=== PATIENT | female | born 1955 | race Caucasian/White ===

== ENCOUNTER → 2018-11-27 | Outpatient (CLI) | payer OTHER ==
--- NOTE | 2018-11-28 11:05 | MM ---
Reason for exam: screening (asymptomatic). Last mammogram was performed 1 year and 6 months ago. History: Patient is postmenopausal. Benign excisional biopsy of the right breast, 2018. Physical Findings: A clinical breast exam by your physician is recommended on an annual basis and results should be correlated with mammographic findings. MG 3D Screening Mammo W/Cad Bilateral CC and MLO view(s) were taken. Prior study comparison: May 26, 2017, mammogram, performed at [facility]. March 30, 2017, mammogram, performed at [facility]. June 12, 2014, mammogram, performed at [facility]. Progressive increasing size of the previously biopsied central right breast mass now with spiculated appearance measuring 4.3 x 3.2cm. Excision recommended even if repeat biopsy is benign. ASSESSMENT: Incomplete: need additional imaging evaluation, BI-RAD 0 RECOMMENDATION: Ultrasound of the right breast. [facility] will attempt to contact patient to return for ultrasound.
== END | disposition home or self-care (01) ==
LOC: RADMAMWWP 12:58
PROVIDERS: ATTEND Family Medicine
DX: Z12.31 Encounter for screening mammogram for malignant neoplasm of breast (principal)
CPT/HCPCS: 77063; 77067

== ENCOUNTER → 2018-12-06 | Outpatient (CLI) | payer OTHER ==
--- NOTE | 2018-12-07 08:47 | USB ---
Reason for exam: additional evaluation requested from abnormal screening. History: Patient is postmenopausal. Benign excisional biopsy of the right breast, 2018. Physical Findings: Nurse Summary: Patient complains of right breast lump increased insize x 1.5 years, 4cm fixated, firm, irregular lump right breast 12 o'clock (nurse mj). US Breast Workup RT Right complete breast ultrasound includes all four quadrants, the retroareolar region and axilla. Finding demonstrates a 4.8 x 3.5 x 5.1cm irregular, hypoechoic, vascular lesion at 12 o'clock for which a biopsy is recommended, a 2.6 x 2.1 x 1.0cm irregular, hypoechoic, vascular lesion at 5 o'clock for which a biopsy is recommended, a 2.7 x 2.0 x 0.7cm irregular, hypoechoic, vascular lesion at 8 o'clock for which a biopsy is recommended, a hypoechoic lesion at 10 o'clock for which a biopsy is recommended, a 1.2 x 1.0 x 1.4cm hypoechoic, question node at 10 o'clock, a 1.3 x 1.2 x 1.5cm hypoechoic, questionable node at 10 o'clock,a 3.3 x 2.6 x 1.7cm irregular, hypoechoic lesion at 11 o'clock and nodes at 11 o'clock questionable adjacent to 10 o'clock. These results were verbally communicated with the patient and result sheet given to the patient on 12/06/18. ASSESSMENT: Highly suggestive of malignancy, BI-RAD 5 RECOMMENDATION: Surgical consultation and ultrasound core biopsy of the right breast. (Four suspicious sites and nodes) Called Dr. Lopez with mammographic findings and has scheduled an appointment for the patient for 12/21/18 at 8:[address] Shirley. Biopsy scheduled for 12/21/18 at 10:20. PRELIMINARY REPORT CALLED AND FAXED TO DR. SHIRLEY ON 12/07/18.
== END | disposition home or self-care (01) ==
LOC: RADUSWWP 10:10
PROVIDERS: ATTEND Family Medicine
DX: R92.8 Other abnormal and inconclusive findings on diagnostic imaging of breast (principal)

== ENCOUNTER → 2018-12-21 | Outpatient (CLI) | payer OTHER ==
[2018-12-21 08:17] VITALS: BP 146/84; PULSE 76; RESP 18; TEMP 98.7; BMI 32.9
--- NOTE | 2018-12-21 08:49 | P.GSHP ---
History of Present Illness H&P Date: 12/21/18 Chief Complaint: lump right breast Leslye is a 63-year-old white female who is being seen for a nodule in her right breast. She states that she noted a nodule approximately 2 years ago in the right breast at which time a biopsy was performed. The biopsy was done via a core biopsy and it was benign. [place] [address]. This revealed a 4.3 x 3.2 cm spiculated mass in the right breast. She subsequently underwent an ultrasound which revealed multiple lesions in the right breast. The first is a 4.8 x 3.5 cm irregular lesion at 12:00 for which biopsy is recommended 2. 2.6 x 1 cm irregular lesion at 5:00 for which biopsy is recommended 3. 2.7 x 2 cm irregular lesion at 8:00 which biopsy is recommended and 4. The lesion at 10:00 for which biopsy is recommended. Additionally there noted to be questionable nodes. The patient states that the area she noted 2 years ago has increased slightly in size. The patient has no pain in her breasts. She has not noted any swelling under her arm. She has no nipple discharge or skin changes. Family history: 1. paternal grandmother: ? breast cancer 2. paternal aunt: smokers lung cancer 3. maternal aunt: brain cancer Hormonal history: Menarche: 10 first at 28, breast fed: no menopasue: 50 BCP: 5 years hormones: none Past surgical history: 1. gallbladder 2. D&C Medical history: HTN depression arthritis Social History: smoke: none Alcohol: Negative Drugs: Negative - Constitutional Constitutional: Reports sweats - EENT Eyes: denies blurred vision, denies pain Ears: deny: decreased hearing, tinnitus Ears, nose, mouth and throat: Denies headache, Denies sore throat - Breasts Breasts: bilateral: as per HPI - Cardiovascular Cardiovascular: Reports high blood pressure - Respiratory Respiratory: Denies cough, Denies 7 - Gastrointestinal Gastrointestinal: Denies abdominal pain, Denies diarrhea, Denies nausea, Denies vomiting - Genitourinary (Female) Genitourinary: Denies dysuria, Denies hematuria - Menstruation Menstruation: Reports postmenopausal - Musculoskeletal Comment: Arthritis in knees - Integumentary Comment: Intermittent folliculitis - Neurological Neurological: Denies numbness, Denies weakness - Psychiatric Psychiatric: Reports depression - Endocrine Endocrine: Reports fatigue, Denies weight change - Hematologic/Lymphatic Comment: none - Allergic/Immunologic Allergic/Immunologic: Reports as per HPI Past Medical History Past Medical History: No Reported History History of Any Multi-Drug Resistant Organisms: None Reported Past Surgical History: Cholecystectomy Additional Past Surgical History / Comment(s): D&C 1983 Past Anesthesia/Blood Transfusion Reactions: Previous Problems w/ Anesthesia, Postoperative Nausea & Vomiting (PONV) Past Psychological History: Depression Smoking Status: Never smoker Past Alcohol Use History: Rare Past Drug Use History: None Reported Medications and Allergies Home Medications Medication Instructions Recorded Confirmed Type Cyclobenzaprine [Flexeril] 5 mg PO TID PRN 12/06/18 12/21/18 History Lisinopril 20 mg PO DAILY 12/06/18 12/21/18 History Sertraline [Zoloft] 50 mg PO DAILY 12/06/18 12/21/18 History Omeprazole [PriLOSEC] 40 mg PO 12/21/18 History Allergies Allergy/AdvReac Type Severity Reaction Status Date / Time Latex, Natural Rubber Allergy Rash/Hives Verified 12/21/18 08:18 amlodipine AdvReac Swelling Verified 12/21/18 08:18 ciprofloxacin [From Cipro] AdvReac Swelling Verified 12/21/18 08:18 citalopram AdvReac Hallucinati Verified 12/21/18 08:18 ons doxycycline AdvReac Vomiting Verified 12/21/18 08:18 Surgical - Exam Vital Signs Temp Pulse Resp BP Pulse Ox 98.7 F 76 18 146/84 95 12/21/18 08:12 12/21/18 08:12 12/21/18 08:12 12/21/18 08:12 12/21/18 08:12 BMI 32.9 - General obese - Eyes normal ocular movement - ENT normal pinna, no hearing loss - Neck no masses, trachea midline - Respiratory normal expansion, normal respiratory effort, clear to auscultation - Cardiovascular Rhythm: regular Heart Sounds: normal: S1, S2 - Abdomen Abdomen: soft, non tender, no guarding, no rigid, no rebound - Integumentary folliculitis on arm - Neurologic no disoriented, no combative - Musculoskeletal normal gait, normal posture - Psychiatric oriented to time, oriented to person, oriented to place, speech is normal, memory intact breast exam: Right breast slightly smaller than left breast Right breast exam: Multiple positional exam dominant mass at 12:00 approximately 5 cm in size Right axilla: Positive axillary adenopathy Left breast: Multiple positional exam no dominant masses or nodules of concern Left axilla: No adenopathy of concern Breasts size 44 DDD Patient has "ruts" in her shoulders from heavy breast Patient complaining of back pain Results mammogram and ultrasound results reviewed Assessment and Plan Assessment: Impression: 1. abnormal mammogram highly suspicious for breast cancer 2. abnormal ultrasound highly suspicious for breast cancer 3. breast mass 4. axillary adenopathy 5. HTN 6. depression Plan; 1. Core biopsy areas of concern in the right breast 2. Follow-up with Dr. Butler next week 3. Medical management of medical conditions Cc: Dr. Lopez
== END ==
LOC: WWCWWP 07:56
PROVIDERS: ATTEND Surgery
DX: Z53.9 Procedure and treatment not carried out, unspecified reason (principal)

== ENCOUNTER → 2018-12-21 | Day surgery (SDC) | payer OTHER ==
[2018-12-21 10:35] VITALS: BP 143/86; PULSE 69; RESP 12
[2018-12-21 13:10] VITALS: TEMP 98.7
--- NOTE | 2018-12-21 14:19 | USB ---
EXAMINATION TYPE: US biopsy breast add'l VAD RT, US biopsy breast VAD RT, US breast needle core addl RT, MG diagnostic mammo RT wo CAD DATE OF EXAM: 12/21/2018 CLINICAL HISTORY: R92.8 abnl mammogram. TECHNIQUE: Ultrasound guided core biopsy of right breast. COMPARISON: Ultrasound dated 12/21/2018 FINDINGS: The procedure of ultrasound guided core biopsy was explained to the patient. Benefits, alternatives, and risks were discussed. An informed consent was then obtained. A procedural timeout was performed. 3 biopsies were performed of the index largest mass at the 12:00 position in zone BC, of the farthest away mass at the 5:00 position, and of a highly suspicious axillary node with Hydromark left in place. Right A: The patient was placed in supine positioning for imaging and for the procedure. The overlying skin was prepped and draped in usual sterile fashion. 10 cc of lidocaine 1% lidocaine was used as anesthetic into the skin and subcutaneous tissue up to be highly suspicious 5.1 cm irregular mass at the 12:00 position on the right. Under ultrasound guidance, a 12-gauge vacuum assisted biopsy gun device was used to obtain 4 core samples. Following this, a ribbon-shaped biopsy marker was left in the mass. Site B: The patient was placed in supine positioning for imaging and for the procedure. The overlying skin was prepped and draped in usual sterile fashion. 10 cc of lidocaine 1% lidocaine was used as anesthetic into the skin and subcutaneous tissue up to the 2.6 cm suspicious irregular mass at the 5:00 position on the right. Under ultrasound guidance, a 12-gauge vacuum assisted biopsy gun device was used to obtain 5 core samples. Following this, a coil-shaped biopsy marker was left in the mass. Site C: The patient was placed in supine positioning for imaging and for the procedure. The overlying skin was prepped and draped in usual sterile fashion. 10 cc of lidocaine 1% lidocaine was the used as anesthetic into the skin and subcutaneous tissue up to the suspicious right axillary adenopathy. Under ultrasound guidance, an 18-gauge Bard nonvacuum assisted device was used to obtain 3 core samples with the open trough technique. Hydromarker clip was placed in the lymph node. The patient tolerated the procedure well without any immediate complication. The patient was kept in the radiology department for short stay after the procedure and then discharged home in stable condition. Postprocedure mammogram demonstrates appropriate biopsy marker placement. IMPRESSION: Successful, uncomplicated ultrasound guided core biopsy of area of a highly suspicious 5.1 cm mass at the 12:00 position, a 2.6 cm irregular mass the furthest away from the index mass at the 5:00 position, and a highly suspicious abnormal right axillary lymph node with Hydromark placed, full pathology results to follow. Of note multiple additional right breast masses were appreciated as detailed on the prior ultrasound of 12/21/2018. Pathology Results: Malignant A. 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 B. RIGHT BREAST, FIVE O'CLOCK, SITE B, ULTRASOUND GUIDED CORE BIOPSY: Benign breast with fibrocystic changes including cysts and fibrosis. C. RIGHT AXILLA, CORE BIOPSY: Metastatic carcinoma consistent with ductal breast primary extensively replacing lymph node tissue. See Comment. Recommendation Surgical consult of the right breast. Biopsy at the 8 o'clock mass could be performed to exclude multicentric disease or MRI if breast conservation is pursued. 8:00 2.7cm mass. 10:00 1.4cm mass. 11:00 3.3cm mass. MTDD
== END ==
LOC: RADUSWWP 09:55
PROVIDERS: ATTEND Surgery
DX: C50.811 Malignant neoplasm of overlapping sites of right female breast (principal); R59.0 Localized enlarged lymph nodes; N60.31 Fibrosclerosis of right breast; Z88.8 Allergy status to other drugs, medicaments and biological substances; Z88.1 Allergy status to other antibiotic agents; Z91.040 Latex allergy status
CPT/HCPCS: 88305; 88342; 88341; 77065; 38505; 19083; 19084; A4648; J2001

== ENCOUNTER → 2018-12-29 | Outpatient (CLI) | payer OTHER ==
[2018-12-29 11:05] VITALS: BP 126/83; PULSE 81; RESP 16; TEMP 98.7; BMI 32.9
--- NOTE | 2018-12-29 12:07 | P.GSHP ---
History of Present Illness H&P Date: 12/29/18 Chief Complaint: breast cancer History of Present Illness H&P Date: 12/21/18 Chief Complaint: lump right breast Leslye is a 63-year-old white female who is being seen for a nodule in her right breast. She states that she noted a nodule approximately 2 years ago in the right breast at which time a biopsy was performed. The biopsy was done via a core biopsy and it was benign. [place] [address]. This revealed a 4.3 x 3.2 cm spiculated mass in the right breast. She subsequently underwent an ultrasound which revealed multiple lesions in the right breast. The first is a 4.8 x 3.5 cm irregular lesion at 12:00 for which biopsy is recommended 2. 2.6 x 1 cm irregular lesion at 5:00 for which biopsy is recommended 3. 2.7 x 2 cm irregular lesion at 8:00 which biopsy is recommended and 4. The lesion at 10:00 for which biopsy is recommended. Additionally there noted to be questionable nodes. The patient states that the area she noted 2 years ago has increased slightly in size. The patient has no pain in her breasts. She has not noted any swelling under her arm. She has no nipple discharge or skin changes. Biopsy the following areas revealed. the patient breast size is 44DDD. 1. 12:00 ultrasound-guided core biopsy invasive high-grade ductal carcinoma; grade 3, ER/IN positive, HER-2 negative. Being sent for additional studies as it was felt that this was discordant. 2. Right breast 5:00 ultrasound-guided core biopsy benign breast with fibrocystic changes 3. 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 The 8 o'clock position was not biopsied Family history: 1. paternal grandmother: ? breast cancer 2. paternal aunt: smokers lung cancer 3. maternal aunt: brain cancer Hormonal history: Menarche: 10 first at 28, breast fed: no menopasue: 50 BCP: 5 years hormones: none Past surgical history: 1. gallbladder 2. D&C Medical history: HTN depression arthritis Social History: smoke: none Alcohol: Negative Drugs: Negative - Constitutional Constitutional: Reports sweats - EENT Eyes: denies blurred vision, denies pain Ears: deny: decreased hearing, tinnitus Ears, nose, mouth and throat: Denies headache, Denies sore throat - Breasts Breasts: bilateral: as per HPI - Cardiovascular Cardiovascular: Reports high blood pressure - Respiratory Respiratory: Denies cough, Denies 7 - Gastrointestinal Gastrointestinal: Denies abdominal pain, Denies diarrhea, Denies nausea, Denies vomiting - Genitourinary (Female) Genitourinary: Denies dysuria, Denies hematuria - Menstruation Menstruation: Reports postmenopausal - Musculoskeletal Comment: Arthritis in knees - Integumentary Comment: Intermittent folliculitis - Neurological Neurological: Denies numbness, Denies weakness - Psychiatric Psychiatric: Reports depression - Endocrine Endocrine: Reports fatigue, Denies weight change - Hematologic/Lymphatic Comment: none - Allergic/Immunologic Allergic/Immunologic: Reports as per HPI Past Medical History Past Medical History: No Reported History History of Any Multi-Drug Resistant Organisms: None Reported Past Surgical History: Cholecystectomy Additional Past Surgical History / Comment(s): D&C 1983 Past Anesthesia/Blood Transfusion Reactions: Previous Problems w/ Anesthesia, Postoperative Nausea & Vomiting (PONV) Past Psychological History: Depression Smoking Status: Never smoker Past Alcohol Use History: Rare Past Drug Use History: None Reported Medications and Allergies Home Medications Medication Instructions Recorded Confirmed Type Cyclobenzaprine [Flexeril] 5 mg PO TID PRN 12/06/18 12/21/18 History Lisinopril 20 mg PO DAILY 12/06/18 12/21/18 History Sertraline [Zoloft] 50 mg PO DAILY 12/06/18 12/21/18 History Omeprazole [PriLOSEC] 40 mg PO 12/21/18 History Allergies Allergy/AdvReac Type Severity Reaction Status Date / Time Latex, Natural Rubber Allergy Rash/Hives Verified 12/21/18 08:18 amlodipine AdvReac Swelling Verified 12/21/18 08:18 ciprofloxacin [From Cipro] AdvReac Swelling Verified 12/21/18 08:18 citalopram AdvReac Hallucinati Verified 12/21/18 08:18 ons doxycycline AdvReac Vomiting Verified 12/21/18 08:18 Surgical - Exam Vital Signs Temp Pulse Resp BP Pulse Ox 98.7 F 76 18 146/84 95 12/21/18 08:12 12/21/18 08:12 12/21/18 08:12 12/21/18 08:12 12/21/18 08:12 BMI 32.9 - General obese - Eyes normal ocular movement - ENT normal pinna, no hearing loss - Neck no masses, trachea midline - Respiratory normal expansion, normal respiratory effort, clear to auscultation - Cardiovascular Rhythm: regular Heart Sounds: normal: S1, S2 - Abdomen Abdomen: soft, non tender, no guarding, no rigid, no rebound - Integumentary folliculitis on arm - Neurologic no disoriented, no combative - Musculoskeletal normal gait, normal posture Past Medical History Past Medical History: No Reported History, Hypertension History of Any Multi-Drug Resistant Organisms: None Reported Past Surgical History: Cholecystectomy Additional Past Surgical History / Comment(s): D&C 1983 Past Anesthesia/Blood Transfusion Reactions: Previous Problems w/ Anesthesia, Po stoperative Nausea & Vomiting (PONV) Past Psychological History: Depression Smoking Status: Never smoker Past Alcohol Use History: Rare Past Drug Use History: None Reported Medications and Allergies Home Medications Medication Instructions Recorded Confirmed Type Cyclobenzaprine [Flexeril] 5 mg PO TID PRN 12/06/18 12/29/18 History Lisinopril 20 mg PO DAILY 12/06/18 12/29/18 History Sertraline [Zoloft] 50 mg PO DAILY 12/06/18 12/29/18 History Omeprazole [PriLOSEC] 40 mg PO Q12HR PRN 12/21/18 12/29/18 History Allergies Allergy/AdvReac Type Severity Reaction Status Date / Time Latex, Natural Rubber Allergy Rash/Hives Verified 12/29/18 10:52 amlodipine AdvReac Swelling Verified 12/29/18 10:52 ciprofloxacin [From Cipro] AdvReac Swelling Verified 12/29/18 10:52 citalopram AdvReac Hallucinati Verified 12/29/18 10:52 ons doxycycline AdvReac Vomiting Verified 12/29/18 10:52 Surgical - Exam Vital Signs Temp Pulse Resp BP Pulse Ox 98.7 F 81 16 126/83 96 12/29/18 10:49 12/29/18 10:49 12/29/18 10:49 12/29/18 10:49 12/29/18 10:49 BMI 32.9 - General obese - Eyes normal ocular movement - Neck trachea midline - Respiratory normal respiratory effort, clear to auscultation - Cardiovascular Rhythm: regular Heart Sounds: normal: S1, S2 - Integumentary Examination of the right breast reveals areas of ecchymosis at the site of the core biopsies No evidence of any infection - Neurologic no disoriented, no combative Results Mammogram and ultrasound reviewed Assessment and Plan Assessment: Impression: 1. T2 N1 M0 ER/IN positive HER-2/bijan negative grade 3, stage IIB 2. HTN 3. arthritis 4. depression We have discussed treatment options which would include mastectomy plus or minus reconstruction with axillary node dissection, whether the patient may have preoperative chemotherapy. If this is truly multi-centric disease we will most likely recommend a mastectomy. If biopsy of the area at 8:00 were benign then patient may consider a lumpectomy. The patient has had a biopsy of the suspicious area several years in the past which was benign and therefore it is of concern that even if these areas were to be benign on core biopsy revealed radiographically very suspicious at 5:00 and 8:00. Additionally the patient has very large breasted 44DDD and need to do some type of procedure on the contralateral breast to help with symmetry. After discussion with the patient with radiology we are going to proceed with an MRI of both breasts. MRI is suspicious for multicentric disease in the right patient will most likely opt for mastectomy. At this time she is not interested in reconstruction. We would then consider a reduction mammoplasty on the left side. Plan: 1. bilateral breast MRI 2. medical oncology consult/discuss genetic testing and patient is not interested this time 3. present at tumor board 4. follow within 2 weeks CC: Asya Christianson N.P.
== END ==
LOC: WWCWWP 10:48
PROVIDERS: ATTEND Surgery
DX: Z53.9 Procedure and treatment not carried out, unspecified reason (principal)

== ENCOUNTER → 2019-01-12 | Outpatient (CLI) | payer OTHER ==
[2019-01-12 11:43] VITALS: BP 124/83; PULSE 77; RESP 18; TEMP 98.3; BMI 33.8
--- NOTE | 2019-01-12 12:19 | P.PN ---
Progress Note - Text Progress Note Date: 01/12/19 Tori is a 63-year-old [place] [id number] with a nodule which she had for approximately 2 years in her right breast. The patient has undergone a radiographic study which revealed a 4.3 x 2.2 cm spiculated mass in the right breast, ultrasound was done which revealed multiple lesions in the right breast. The first was a 4.8 cm lesion at 12:00, secondary to 0.6 cm lesion at 5:00, and the 32.7 cm lesion at 8:00 biopsy was recommended for all of these. Additionally there were noted to be questionable lymph nodes. The patient's lesion at 12:00 was invasive high-grade ductal carcinoma, that at 5:00 was benign breast tissue, and that in the axilla was metastatic carcinoma consistent with Dr. park primary extensively replacing a lymph node. The patient was noted to be ER/ND positive. The tumor was initially felt to be HER- 2 negative that FISH study was to be performed. The patient is having a metastatic workup performed by Dr. Frederick. She is not going to undergo genetic testing. The patient had a bilateral breast MRI performed the results are not y et available. The patient is in the process of getting everything worked up. Therefore I do not have further recommendations for her at this time. She will follow up with me in 2 weeks after results of breast MRI and evaluation by Dr. Frederick are complete. Physical exam: Lungs: Clear Heart: Regular rate and rhythm Right dorsum of the hand with some ecchymosis related to her IV was started for the MRI Impression: 1. Right breast stage IIB carcinoma. Clinical staging 2. Hypertension 3. Arthritis 4. Depression Plan: 1. Await results of bilateral breast MRI 2. Await results of medical oncology consult 3. Consider preoperative chemo/hormonal therapy CC:Dr. Lopez
== END ==
LOC: WWCWWP 11:05
PROVIDERS: ATTEND Surgery
DX: Z53.9 Procedure and treatment not carried out, unspecified reason (principal)

== ENCOUNTER → 2019-01-15 | Outpatient (CLI) | payer OTHER ==
--- NOTE | 2019-01-15 15:35 | NM ---
EXAMINATION TYPE: NM bone scan whole body DATE OF EXAM: 01/15/2019 COMPARISON: CT same date HISTORY: Breast cancer Delayed whole-body scanning was performed following the injection of 22.8 mCi Tc 99m MDP. Images acq uired 3 hours post injection. FINDINGS: There is uptake within the feet, knees, wrists, shoulders, spine is likely due to arthropathy change. Soft tissue uptake is normal. Uptake within the right mandible may be due to periodontal disease. No abnormal increased or decreased uptake to suggest metastatic disease. IMPRESSION: No convincing evidence of metastatic disease.
--- NOTE | 2019-01-15 20:01 | CT ---
EXAMINATION TYPE: CT ChestAbdPelvis w con DATE OF EXAM: 01/15/2019 COMPARISON: Bone scan 01/15/2019 HISTORY: Follow up breast cancer. No complaints at time of scan CT DLP: 1596.6 mGycm Automated exposure control for dose reduction was used. CONTRAST: CT scan of the chest, abdomen and pelvis is performed with Oral Contrast and with IV Contrast, patien t injected with 100 mL of Isovue 300. FINDINGS: Right breast mass is present compatible with patient's history of carcinoma, right axillary adenopathy is also present, there are biopsy marker is present LUNGS: The lungs are grossly clear, there is no concerning parenchymal mass or nodule identified. T here is no pleural effusion or pneumothorax seen. The tracheobronchial tree is patent. MEDIASTINUM: There are no greater than 1 cm hilar or mediastinal lymph nodes. No pericardial effusi on is seen. AORTA: No significant abnormality is seen. For super aortic branch vessels are present. OTHER: There is a small hiatal hernia present.. LIVER/GB: Liver shows low attenuation. Patient is status post cholecystectomy. PANCREAS: No significant abnormality is seen. SPLEEN: No significant abnormality is seen. ADRENALS: No significant abnormality is seen. KIDNEYS: No significant abnormality is seen. REPRODUCTIVE ORGANS: No gross abnormality seen. BOWEL: Diverticular changes associated with the colon and sigmoid location and descending colon FREE AIR: No Free Air visible. ASCITES: None seen. RETROPERITONEAL ADENOPATHY: No retroperitoneal adenopathy is seen. LYMPH NODES: No greater than 1 cm abdominal or pelvic lymph nodes are appreciated. URINARY BLADDER: No significant abnormality is seen. PELVIC ADENOPATHY: None visualized. OSSEOUS STRUCTURES: No significant abnormality is seen. IMPRESSION: Right breast mass with right axillary adenopathy.
== END | disposition home or self-care (01) ==
LOC: RADNMMAIN 11:08
PROVIDERS: ATTEND Internal Medicine Hematology & Oncology
DX: C50.811 Malignant neoplasm of overlapping sites of right female breast (principal)
CPT/HCPCS: 71260; 74177; 78306; A9503; Q9967

== ENCOUNTER → 2019-01-22 | Outpatient (CLI) | payer OTHER ==
--- NOTE | 2019-01-22 12:55 | ECHOF ---
Referral Reason:C50.811 Breast Ca; Z01.818 [facility] MEASUREMENTS -------- HEIGHT: 157.5 cm WEIGHT: 83.9 kg BP: 140/80 RVIDd: 2.9 cm (< 3.3) IVSd: 1.2 cm (0.6 - 1.1) LVIDd: 2.9 cm (3.9 - 5.3) LVPWd: 1.3 cm (0.6 - 1.1) IVSs: 1.7 cm LVIDs: 1.9 cm LVPWs: 1.6 cm LA Diam: 2.3 cm (2.7 - 3.8) LAESV Index (A-L): 12.04 ml/m Ao Diam: 2.7 cm (2.0 - 3.7) AV Cusp: 2.0 cm (1.5 - 2.6) MV EXCURSION: 15.358 mm (> 18.000) MV EF SLOPE: 23 mm/s (70 - 150) EPSS: 0.4 cm MV E Dre: 0.85 m/s MV DecT: 222 ms MV A Dre: 0.90 m/s MV E/A Ratio: 0.95 RAP: 5.00 mmHg RVSP: 23.12 mmHg FINDINGS -------- Sinus rhythm. This was a technically good study. The left ventricular size is normal. There is mild concentric left ventricular hypertrophy. Overa ll left ventricular systolic function is normal with, an EF between 60 - 65 %. The right ventricle is normal in size. Normal LA size by volume 22+/-6 ml/m2. The right atrium is normal in size. Interatrial and interventricular septum intact. The aortic valve is trileaflet and appears structurally normal. The mitral valve is normal. Mild tricuspid regurgitation present. Right ventricular systolic pressure is normal at < 35 mmHg. Trace/mild (physiologic) pulmonic regurgitation. The aortic root size is normal. Normal inferior vena cava with normal inspiratory collapse consistent with estimated right atrial pre ssure of 5 mmHg. There is no pericardial effusion. CONCLUSIONS -------- 1. Sinus rhythm. 2. This was a technically good study. 3. The left ventricular size is normal. 4. There is mild concentric left ventricular hypertrophy. 5. Overall left ventricular systolic function is normal with, an EF between 60 - 65 %. 6. The right ventricle is normal in size. 7. Normal LA size by volume 22+/-6 ml/m2. 8. The right atrium is normal in size. 9. Interatrial and interventricular septum intact. 10. The aortic valve is trileaflet and appears structurally normal. 11. The mitral valve is normal. 12. Mild tricuspid regurgitation present. 13. Right ventricular systolic pressure is normal at < 35 mmHg. 14. Trace/mild (physiologic) pulmonic regurgitation. 15. The aortic root size is normal. 16. Normal inferior vena cava with normal inspiratory collapse consistent with estimated right atrial pressure of 5 mmHg. 17. There is no pericardial effusion. RADIATION PROTECTION TECHNICIAN: Natali Catherine RDCS
== END | disposition home or self-care (01) ==
LOC: RADECHMAIN 10:21
PROVIDERS: ATTEND Internal Medicine Hematology & Oncology
DX: Z01.818 Encounter for other preprocedural examination (principal); C50.811 Malignant neoplasm of overlapping sites of right female breast; I51.7 Cardiomegaly
CPT/HCPCS: 93306

== ENCOUNTER 2019-01-24 06:36 | Day surgery (SDC) | payer OTHER ==
[2019-01-23 13:23] VITALS: BMI 33.8
[~2019-01-24 06:36] MED LIST: HEPARIN SODIUM,PORCINE 5,000 UNIT/ML 1 ML VIAL SQ ONE; LACTATED RINGERS 1,000 ML IV SCH; LIDOCAINE 1% 20 ML VIAL (10MG/ML) FOR IV START INTRADERMA PRN; Pre Op ABX Message 1 EACH MISC MISCELLANE ONE
[2019-01-24 07:01] VITALS: TEMP 97.7
[2019-01-24] MEDS ORDERED: ONDANSETRON 4 MG/2 ML VIAL IVP ONE (07:15)
[2019-01-24] MEDS ORDERED: DEXAMETHASONE SOD PHOS (MDV) 100 MG/10 ML VIAL IVP ONE (07:15)
--- NOTE | 2019-01-24 07:33 | P.GSHP ---
History of Present Illness H&P Date: 01/24/19 Chief Complaint: right-sided breast cancer Patient here today for Port-A-Cath placement. She is to begin chemotherapy in the near future for stage III right breast cancer. Patient has not had definitive surgical therapy thus far. She has not had a port previously. Past Medical History Past Medical History: Cancer, GERD/Reflux, Hypertension, Renal Disease Additional Past Medical History / Comment(s): RT BREAST CA 01/17/19. HX AC RENAL FAILURE R/T DEHYDRATION YEARS AGO. History of Any Multi-Drug Resistant Organisms: None Reported Past Surgical History: Breast Surgery, Cholecystectomy Additional Past Surgical History / Comment(s): D&C 1983. RT BREAST BIOPSIES. Past Anesthesia/Blood Transfusion Reactions: Postoperative Nausea & Vomiting (PONV) Smoking Status: Never smoker - Past Family History Mother Family Medical History: No Reported History Medications and Allergies Home Medications Medication Instructions Recorded Confirmed Type Cyclobenzaprine [Flexeril] 5 mg PO TID PRN 12/06/18 01/24/19 History Lisinopril 20 mg PO HS 12/06/18 01/24/19 History Sertraline [Zoloft] 50 mg PO HS 12/06/18 01/24/19 History Omeprazole [PriLOSEC] 40 mg PO Q12HR PRN 12/21/18 01/24/19 History Acetaminophen [Tylenol Extra 500 - 1,000 mg PO Q6H PRN 01/23/19 01/24/19 History Strength] Ibuprofen [Advil] 200 mg PO Q8HR PRN 01/23/19 01/24/19 History Allergies Allergy/AdvReac Type Severity Reaction Status Date / Time Latex, Natural Rubber Allergy Rash/Hives Verified 01/24/19 07:15 adhesive tape AdvReac Rash/Hives Verified 01/24/19 07:15 amlodipine AdvReac Swelling Verified 01/24/19 07:15 ciprofloxacin [From Cipro] AdvReac Swelling Verified 01/24/19 07:15 citalopram AdvReac Hallucinati Verified 01/24/19 07:15 ons doxycycline AdvReac Vomiting Verified 01/24/19 07:15 Surgical - Exam Vital Signs Temp Pulse Resp BP Pulse Ox 97.7 F 69 16 145/81 96 01/24/19 07:00 01/24/19 07:00 01/24/19 07:00 07/10/19 07:00 01/24/19 07:00 Physical exam: General: Well-developed, well-nourished HEENT: Normocephalic, sclerae nonicteric Abdomen: Nontender, nondistended Extremities: No edema Neuro: Alert and oriented Assessment and Plan (1) Breast cancer Narrative/Plan: Will proceed with Port-A-Cath placement at this time. Risks of bleeding, infection, DVT, pneumothorax, catheter malfunction, anesthesia related complications were discussed. The patient understands and wishes to proceed. Current Visit: Yes Status: Acute Code(s): C50.919 - MALIGNANT NEOPLASM OF UNSP SITE OF UNSPECIFIED FEMALE BREAST SNOMED Code(s): 912339042
[2019-01-24] MEDS ORDERED: LIDOCAINE 1% INJ 10MG/ML (20 ML MDV) ONE (07:34)
[2019-01-24] MEDS ORDERED: MIDAZOLAM 2 MG/2 ML VIAL ONE (07:34)
[2019-01-24] MEDS ORDERED: fentaNYL (PF) 50 MCG/ML 2 ML AMP ONE (07:34)
[2019-01-24] MEDS ORDERED: ePHEDrine SULFATE/0.9% NACL/PF 50 MG/5 ML SYRINGE IV ONE (07:34)
[2019-01-24] MEDS ORDERED: PROPOFOL 10 MG/ML 20 ML VIAL IV ONE (07:34)
[2019-01-24] MEDS ORDERED: PHENYLEPHRINE-0.9% NACL SYG 1 MG/10 ML SYRINGE ONE (07:34)
[2019-01-24] MEDS ORDERED: SUCCINYLCHOLINE CHLORIDE 100 MG/5 ML SYR IV ONE (07:34)
[2019-01-24] MEDS ORDERED: SODIUM CHLORIDE 0.9% 50 ML with ceFAZolin 2,000 MG IV ONE ×2 (08:01)
[2019-01-24] MEDS ORDERED: LIDOCAINE 1% INJ 10MG/ML (20 ML MDV) SQ ONE (08:08)
[2019-01-24] MEDS ORDERED: HEPARIN SODIUM,PORCINE 100 UNIT/ML 5 ML VIAL IV ONE (08:08)
[2019-01-24] MEDS ORDERED: HYDROcodone/APAP 5-325MG 1 EACH TAB PO PRN (08:36)
[2019-01-24] MEDS ORDERED: NALOXONE 0.4 MG/ML 1 ML VIAL IV PRN (08:36)
--- NOTE | 2019-01-24 08:39 | P.OP ---
Date of Procedure: 01/24/19 Procedure(s) Performed: PREOPERATIVE DIAGNOSIS: Right breast cancer POSTOPERATIVE DIAGNOSIS: Same PROCEDURE: Port-A-Cath placement SURGEON: Kusum EBL: Minimal ANESTHESIA: General COMPLICATIONS: None OPERATIVE PROCEDURE: Patient was brought and placed on the operative table in the supine position. The patient was sedated per anesthesia that time. The chest and neck were prepped and draped in usual sterile fashion. The ultrasound probe was used to identify the location of the right internal jugular vein. The skin was localized with lidocaine. The Seldinger needle was advanced into the IJ under ultrasound guidance. The wire was advanced through the needle under fluoroscopic guidance into the superior vena cava. A port pocket was created in the right infraclavicular location. The catheter was tunneled from the wire entrance site to the port pocket. The port was then connected to the catheter. The dilator introducer was threaded over the guidewire. The guidewire and dilator were then removed. The catheter was advanced through the introducer and introducer was then removed. The tip was seen to be in the right atrial junction. Port was flushed with both saline and a Hep-Lock solution. There was good flow both in and out of the port. The port was sutured in underlying tissues using 3-0 silk sutures. The subcutaneous tissues were reapproximated using 3-0 Vicryl sutures and the skin at both locations using 4-0 Monocryl sutures. Skin glue and sterile dressings then applied. DISPOSITION: Stable to recovery room
[2019-01-24 08:45] VITALS: RESP 18
--- NOTE | 2019-01-24 09:08 | FL ---
EXAMINATION TYPE: FL guided central line placemt HISTORY: Fluoroscopy time Impression: 1. Fluoroscopy support provided to the referring physician. 2 seconds of fluoroscopy provided.
--- NOTE | 2019-01-24 09:53 | XR ---
EXAMINATION TYPE: XR chest 1V confirm line [facility] DATE OF EXAM: 01/24/2019 COMPARISON: NONE HISTORY: Line placement TECHNIQUE: Single frontal view of the chest is obtained. FINDINGS: Mediport catheter seen the tip overlying the right atrium. No sizable pneumothorax. Subseg mental areas of consolidation are noted. Arthropathy shoulders. Heart size normal. IMPRESSION: 1. Central line seen with the tip overlying the right atrium and no sizable pneumothorax. 2. Bilateral atelectasis or infiltrate.
[2019-01-24 10:51] VITALS: PULSE 71
[2019-01-24 11:01] VITALS: BP 123/66
== END 2019-01-24 11:03 | disposition home or self-care (01) ==
LOC: OR 06:36
PROVIDERS: ATTEND Surgery
DX: C50.911 Malignant neoplasm of unspecified site of right female breast (principal); I10 Essential (primary) hypertension; K21.9 Gastro-esophageal reflux disease without esophagitis; Z88.1 Allergy status to other antibiotic agents; Z88.8 Allergy status to other drugs, medicaments and biological substances; Z90.49 Acquired absence of other specified parts of digestive tract
CPT/HCPCS: 77001; 36571; C1788; J2250; J1644; J1642; J2405; J0690; J2001; J3010; J1100; J2370; J0330; J2704

== ENCOUNTER → 2019-02-08 | Day surgery (SDC) | payer OTHER ==
[2019-02-08 13:36] VITALS: RESP 16; BMI 33.6
[2019-02-08 14:57] VITALS: BP 118/73; PULSE 59; TEMP 98
--- NOTE | 2019-02-08 15:06 | USB ---
EXAMINATION TYPE: US biopsy breast VAD RT, MG diagnostic mammo RT wo CAD DATE OF EXAM: 02/08/2019 CLINICAL HISTORY: C50.811 Breast Ca, N63 Breast mass. TECHNIQUE: Ultrasound guided core biopsy of right breast. COMPARISON: Exams dating back to outside imaging dated 05/26/2017 FINDINGS: The procedure of ultrasound guided core biopsy was explained to the patient. Benefits, alt ernatives, and risks were discussed. An informed consent was then obtained. Preprocedural timeout w as performed. The patient was placed in supine positioning for imaging and for the procedure. The overlying skin w as prepped and draped in usual sterile fashion. 9 cc of 1% lidocaine without epinephrine was used as anesthetic into the skin and subcutaneous tissue up to the irregular suspicious elongated 1.8 cm mass at the 8:00 position within the right breast. Under ultrasound guidance, a 12-gauge vacuum assisted biopsy gun device was used to obtain [address]. Following this, a wing shaped biopsy marker was left at the site of biopsy within the mass. Po stprocedural mammogram demonstrates appropriate biopsy marker placement. The patient tolerated the procedure well without any immediate complication. The patient was kept in the radiology department for short stay after the procedure and then discharged home in stable condi tion. IMPRESSION: Successful, uncomplicated ultrasound guided core biopsy of an elongated 1.8 cm mass at th e 8:00 position within the right breast, full pathology results to follow.
== END ==
LOC: RADUSWWP 13:06
PROVIDERS: ATTEND Internal Medicine Hematology & Oncology
DX: N60.11 Diffuse cystic mastopathy of right breast (principal); N62 Hypertrophy of breast; Z85.3 Personal history of malignant neoplasm of breast; Z88.1 Allergy status to other antibiotic agents; Z91.040 Latex allergy status; Z88.8 Allergy status to other drugs, medicaments and biological substances; Z91.09 Other allergy status, other than to drugs and biological substances
CPT/HCPCS: 77065; 19083; A4648; J2001; 88305

== ENCOUNTER → 2019-02-09 | Outpatient (CLI) | payer OTHER ==
[2019-02-09 12:31] VITALS: BP 135/83; PULSE 84; RESP 18; TEMP 98.6; BMI 33.6
--- NOTE | 2019-02-09 12:57 | P.PN ---
Subjective Progress Note Date: 02/09/19 Principal diagnosis: [id number]/NE+Her2- right breast cancer Leslye is a 63-year-old white female who is being seen for a nodule in her right breast. She states that she noted a nodule approximately 2 years ago in the right breast at which time a biopsy was performed. The biopsy was done via a core biopsy and it was benign. [place] [address]. This revealed a 4.3 x 3.2 cm spiculated mass in the right breast. She subsequently underwent an ultrasound which revealed multiple lesions in the right breast. The first is a 4.8 x 3.5 cm irregular lesion at 12:00 for which biopsy is recommended 2. 2.6 x 1 cm irregular lesion at 5:00 for which biopsy is rec ommended 3. 2.7 x 2 cm irregular lesion at 8:00 which biopsy is recommended and 4. The lesion at 10:00 for which biopsy is recommended. Additionally there noted to be questionable nodes. The patient states that the area she noted 2 years ago has increased slightly in size. The patient has no pain in her breasts. She has not noted any swelling under her arm. She has no nipple discharge or skin changes. Biopsy the following areas revealed. the patient breast size is 44DDD. 1. 12:00 ultrasound-guided core biopsy invasive high-grade ductal carcinoma; grade 3, ER/NE positive, HER-2 negative. Being sent for additional studies as it was felt that this was discordant. 2. Right breast 5:00 ultrasound-guided core biopsy benign breast with fibrocystic changes 3. 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 The 8 o'clock position was not biopsied The patient had a bilateral breast MRI performed on01-11-19. The results showed the following, 1. Multifocal disease in the upper inner quadrant of the right breast the mass and satellite nodule measures up to 4.9 cm with pathologically proven right breast axillary adenopathy. If chemotherapy could be used to decrease the size of the mass to breast conservation was pursued ultrasound-guided biopsy of the 8:00 mass remains a recommendation despite no abnormal enhancement on the MRI. 2. Biopsy-proven metastatic right axillary adenopathy, at least 3 enlarged abnormal lymph nodes were seen. No suspicious internal mammary adenopathy, or left axillary adenopathy or intramammary adenopathy. 3. No pathologic enhancement was seen on the left. The patient was also recommended to undergo core biopsy of the 8 o'clock position of the right breast. This was performed yesterday. The patient had a Port-A-Cath placed approximately 2 weeks ago. Family history: 1. paternal grandmother: ? breast cancer 2. paternal aunt: smokers lung cancer 3. maternal aunt: brain cancer Hormonal history: Menarche: 10 first at 28, breast fed: no menopasue: 50 BCP: 5 years hormones: none Past surgical history: 1. gallbladder 2. D&C Medical history: HTN depression arthritis Social History: smoke: none Alcohol: Negative Drugs: Negative - Constitutional Constitutional: Reports sweats - EENT Eyes: denies blurred vision, denies pain Ears: deny: decreased hearing, tinnitus Ears, nose, mouth and throat: Denies headache, Denies sore throat - Breasts Breasts: bilateral: as per HPI - Cardiovascular Cardiovascular: Reports high blood pressure - Respiratory Respiratory: Denies cough, Denies 7 - Gastrointestinal Gastrointestinal: Denies abdominal pain, Denies diarrhea, Denies nausea, Denies vomiting - Genitourinary (Female) Genitourinary: Denies dysuria, Denies hematuria - Menstruation Menstruation: Reports postmenopausal - Musculoskeletal Comment: Arthritis in knees - Integumentary Comment: Intermittent folliculitis - Neurological Neurological: Denies numbness, Denies weakness - Psychiatric Psychiatric: Reports depression - Endocrine Endocrine: Reports fatigue, Denies weight change - Hematologic/Lymphatic Comment: none - Allergic/Immunologic Allergic/Immunologic: Reports as per HPI Past Medical History Past Medical History: No Reported History History of Any Multi-Drug Resistant Organisms: None Reported Past Surgical History: Cholecystectomy Additional Past Surgical History / Comment(s): D&C 1983 Past Anesthesia/Blood Transfusion Reactions: Previous Problems w/ Anesthesia, Postoperative Nausea & Vomiting (PONV) Past Psychological History: Depression Smoking Status: Never smoker Past Alcohol Use History: Rare Past Drug Use History: None Reported Objective - Vital Signs Vital signs: Vital Signs Temp 98.6 F 02/09/19 12:27 Pulse 84 02/09/19 12:27 Resp 18 02/09/19 12:27 BP 135/83 02/09/19 12:27 Pulse Ox 96 02/09/19 12:27 Intake & Output 07/02/09/19 02/09/19 18:59 06:59 18:59 Weight 83.461 kg - Constitutional General appearance: Present: obese - EENT Eyes: Present: EOMI ENT: Present: hearing grossly normal - Neck Neck: Present: normal ROM - Respiratory Respiratory: bilateral: CTA - Cardiovascular Rhythm: regular Heart sounds: normal: S1, S2 - Integumentary Integumentary Comment(s): incision right chest wall clean and dry Integumentary: Present: normal turgor - Musculoskeletal Musculoskeletal: Present: gait normal - Psychiatric Psychiatric: Present: A&O x's 3, appropriate affect, intact judgment & insight - Additional findings Additional findings: breast exam: no repeated today Assessment and Plan Assessment: Impression: 1.[id number]/NE+her2-G3 Stage IIB-IIIA right breast cancer, having preoperative neoadjuvant chemotherapy 2. MRI results discussed with the patient 3.HTN 4. depression 5. arthritis Plan: 1. 4 doses every other week of chemotherapy, followed by 12 weeks of additional chemotherapy; 5 months of chemotherapy 2. surgery to follow chemotherapy; patient uncertain as to which procedure will be done awaiting to see how she responds to the chemotherapy 3. Radiation to follow the chemo therapy and surgery 4. Await results cord biopsy right breast 5. follow up in 2 1/2 months Cc: Zena Barraza N.P.
== END | disposition home or self-care (01) ==
LOC: WWCWWP 12:14
PROVIDERS: ATTEND Surgery
DX: Z53.9 Procedure and treatment not carried out, unspecified reason (principal)

== ENCOUNTER → 2019-05-25 | Outpatient (CLI) | payer OTHER ==
[2019-05-25 16:16] VITALS: BP 121/78; PULSE 94; RESP 18; TEMP 97.7; BMI 32.1
--- NOTE | 2019-05-25 17:02 | P.PN ---
Subjective Progress Note Date: 05/25/19 Principal diagnosis: surveillance Stage IIb-IIIa [id number]/LA+Her 2-G3 Leslye is 64-year-old white female who underwent a mammogram and [id number]. This revealed a 4.3 x 3.2 cm spiculated mass in the right breast. She subsequently underwent an ultrasound which revealed multiple lesions in the right breast. The first was a 4.8 x 3.5 cm irregular lesion at 12:00 and the second was a 2.6 x 1 cm lesion at 5:00 the third was a 2.7 x 2 cm lesion at 8:00 and biopsy was recommended of all of these lesions. 3 areas were biopsied. They breast 12:00 high invasive high-grade ductal carcinoma, right breast 5:00 fibrocystic, right axilla metastatic carcinoma with consistent with ductal primary extensively replacing lymph node tissue. ormed on . The patient had a bilateral breast MRI on . Results revealed multifocal disease in the upper inner quadrant of the right breast If chemotherapy continues to decrease the size of the mass than breast conservation could be considered however was still recommended that a ultrasound-guided biopsy of 8:00 breast mass will be performed in the right breast This was performed and this was negative Biopsy-proven metastatic right axillary adenopathy at least 3 enlarged abnormal lymph nodes were seen I'm uncertain as to whether this is multifocal disease or an isolated lesion at 12:00. The patient has been receiving chemotherapy. She had 4 sessions over a 4 week period, she is now taking taxol. She has 5 more weeks of chemo to go. She states at this time she is feeling well and the tumor has shrunk. Family history: 1. Paternal grandmother: Questionable breast cancer 2. Paternal aunt: 1 cancer 3. Maternal aunt: Brain cancer Social history: 1. Cholecystectomy 2. D&C Medical history: Hypertension Depression Arthritis Social history: Smoke: Negative Alcohol: Negative Drugs: Negative Objective - Vital Signs Vital signs: Vital Signs Temp 97.7 F 05/25/19 16:13 Pulse 94 05/25/19 16:13 Resp 18 05/25/19 16:13 BP 121/78 05/25/19 16:13 Pulse Ox 93 L 05/25/19 16:13 Intake & Output 05/24/19 05/25/19 05/25/19 18:59 06:59 18:59 Weight 79.832 kg - Exam BMI 32.2 - Constitutional General appearance: Present: average body habitus - EENT Eyes: Present: EOMI ENT: Present: hearing grossly normal - Neck Neck: Present: normal ROM - Respiratory Respiratory: bilateral: CTA - Cardiovascular Rhythm: regular Heart sounds: normal: S1, S2 - Gastrointestinal General gastrointestinal: Present: soft - Integumentary Integumentary: Present: normal turgor - Musculoskeletal Musculoskeletal: Present: gait normal - Psychiatric Psychiatric: Present: A&O x's 3, appropriate affect, intact judgment & insight - Additional findings Additional findings: Breast examination: Bra 44DDD, Ptosis grade3 Right breast: Positional exam fibrocystic changes, fibrofatty tissue, lesion at approximately 12:00 approximately 2 cm in size, Right axilla: No adenopathy of concern Left breast: Fibrofatty, fibrocystic disease no dominant masses or nodules of concern Left axilla: No adenopathy of concern Assessment and Plan Assessment: Impression/Plan: 1. excellant response to chemotherapy 2. finish chemotherapy 3. HTN 4. depression 5. arthritis Plan: 1. continue chemotherapy 2. radiation to follow chemo and surgery 3. follow up after chemotherapy finished CC: Dr. Lopez, Dr. Ko Time with Patient: Greater than 30 (> 50% of time councelling and treatment planning)
== END ==
LOC: WWCWWP 15:56
PROVIDERS: ATTEND Surgery
DX: Z53.9 Procedure and treatment not carried out, unspecified reason (principal)

== ENCOUNTER → 2019-08-09 | Outpatient (CLI) | payer OTHER ==
[2019-08-09 10:02] VITALS: BP 117/80; RESP 18; TEMP 97.5
--- NOTE | 2019-08-09 10:53 | P.PN ---
Subjective Leslye is 64-year-old white female who underwent a mammogram and [id number]. This revealed a 4.3 x 3.2 cm spiculated mass in the right breast. She subsequently underwent an ultrasound which revealed multiple lesions in the right breast. The first was a 4.8 x 3.5 cm irregular lesion at 12:00 and the second was a 2.6 x 1 cm lesion at 5:00 the third was a 2.7 x 2 cm lesion at 8:00 and biopsy was recommended of all of these lesions. 3 areas were biopsied. They breast 12:00 high invasive high-grade ductal carcinoma, right breast 5:00 fibrocystic, right axilla metastatic carcinoma with consistent with ductal primary extensively replacing lymph node tissue. ormed on . The patient had a bilateral breast MRI on . Results revealed multifocal disease in the upper inner quadrant of the right breast If chemotherapy continues to decrease the size of the mass than breast conservation could be considered however was still recommended that a ultrasound-guided biopsy of 8:00 breast mass will be performed in the right breast, ultrasound core biopsy of this area was performed on . This revealed fibrocystic changes and pseudo-angiomatous stromal hyperplasia. Leslye finished with her chemotherapy on June 28. After chemotherapy with Dr. Ko he feels that a lumpectomy would be acceptable. This was performed and this was negative Biopsy-proven metastatic right axillary adenopathy at least 3 enlarged abnormal lymph nodes were seen Her MRI was again reviewed with radiology, it is felt like the disease is locate d in 1 quadrant in the upper inner quadrant. She states at this time she is feeling well and the tumor has shrunk. Family history: 1. Paternal grandmother: Questionable breast cancer 2. Paternal aunt: 1 cancer 3. Maternal aunt: Brain cancer Surgical history: 1. Cholecystectomy 2. D&C Medical history: Hypertension Depression Arthritis Social history: Smoke: Negative Alcohol: Negative Drugs: Negative ROS: HEENT: wears glasses none cardiac: HEN lungs: none GI: none : UTI in past Musculoskeletal: Arthritis Neurologic: Negative Psychiatric: Depression Hematologic: Negative ALLERGIES: Seasonal Objective - Vital Signs Vital signs: Vital Signs Temp 97.5 F L 08/09/19 09:56 Pulse Resp 18 08/09/19 09:56 BP 117/80 08/09/19 09:56 Pulse Ox 96 08/09/19 09:56 Intake & Output 08/08/19 08/09/19 08/09/19 18:59 06:59 18:59 Weight 78.471 kg - Exam BMI 31.6 - Constitutional General appearance: Present: obese - EENT Eyes: Present: EOMI ENT: Present: hearing grossly normal - Neck Details: no adenopathy of concern Neck: Present: normal ROM - Respiratory Respiratory: bilateral: CTA - Cardiovascular Rhythm: regular Heart sounds: normal: S1, S2 - Gastrointestinal General gastrointestinal: Present: normal bowel sounds, soft - Integumentary Integumentary: Present: normal turgor - Musculoskeletal Musculoskeletal: Present: gait normal - Psychiatric Psychiatric: Present: A&O x's 3, appropriate affect, intact judgment & insight - Additional findings Additional findings: breast exam: BRA 44DDD ptosis grade 3 inspection: grade 3 ptosis, no nipple inversion, beginning of some fungal infection under the breast Palpation: Right breast: Mass noted at 12:00 has decreased in size is still remains palpable however, otherwise fibrocystic breast changes Right axilla: Persistent adenopathy but decreased in size Left breast: Multi-positional exam no dominant masses or nodules of concern Left axilla: No adenopathy of concern Assessment and Plan Assessment: Impression: 1. IIb/IIIa T2 N1 M0 ER/[place] positive HER-2/bijan negative G3 right breast cancer status post neoadjuvant chemotherapy with good response patient is ready for surgical intervention. 2. Hypertension 3. Depression 4. Arthritis 5. Patient complains of chronic back pain related to the size of her breast as well as shoulder notching I have had a discussion with the patient and her brother regarding surgical options. The patient has very large breast 44 triple D. The patient's options include lumpectomy, this can be done via reduction mammoplasty incision which ma y or may not require removal of the nipple areolar complex. Additionally she could have a mastectomy. The patient has been given the option of seeing a plastic surgeon and has declined. The patient will also undergo a right axillary node dissection. The patient and her brother understand the risks and benefits of the procedure. These include bleeding, infection, possible reaction to the anesthetic. These also include the possibility of needing to go back and remove further breast tissue. We've also discussed that if I needed to remove further breast tissue she may need to have a skin graft to facilitate this. The patient understands the risks of axillary dissection which included again bleeding infection reaction to the anesthetic, possible numbness to the inner arm, possible injury to the thoracodorsal and long thoracic nerve, with bleeding of the scapula, and possible swelling of the arm. The patient will be very asymmetric after the surgery and after radiation therapy will have a contralateral symmetry procedure performed. Plan: 1. Right breast needle localization lumpectomy most likely via reduction mammoplasty incision, dissection right axillary node dissection 2. Medical clearance obtained 3. Symmetry procedure of the left breast in the future Cc: , Dr. Ko encounter 35 minutes, > 50% planning and counselling Time with Patient: Greater than 30
== END | disposition home or self-care (01) ==
LOC: WWCWWP 09:43
PROVIDERS: ATTEND Surgery
DX: Z53.9 Procedure and treatment not carried out, unspecified reason (principal)

== ENCOUNTER 2019-08-14 08:54 | Day surgery (SDC) | payer OTHER ==
[2019-08-10 09:37] VITALS: BMI 31.6
[~2019-08-14 08:54] MED LIST changes: +DEXAMETHASONE SOD PHOSPHATE 10 MG/ML 1 ML VIAL IV ONE; -LACTATED RINGERS 1,000 ML IV SCH; +METOCLOPRAMIDE 5 MG/ML 2 ML VIAL IVP PRN; +ONDANSETRON 4 MG/2 ML VIAL IVP ONE
[2019-08-14] MEDS ORDERED: ALPRAZolam 0.5 MG TAB PO ONE (09:30)
[2019-08-14] MEDS: LACTATED RINGERS 1,000 ML IV SCH (09:40)
[2019-08-14] MEDS ORDERED: LIDOCAINE 1% INJ 10MG/ML (20 ML MDV) SQ ONE (10:35)
[2019-08-14] MEDS ORDERED: SUCCINYLCHOLINE CHLORIDE 100 MG/5 ML SYR IV ONE (11:54)
[2019-08-14] MEDS ORDERED: MIDAZOLAM 2 MG/2 ML VIAL ONE (11:54)
[2019-08-14] MEDS ORDERED: PROPOFOL 10 MG/ML 20 ML VIAL IV ONE (11:54)
[2019-08-14] MEDS ORDERED: LIDOCAINE 1% INJ 10MG/ML (20 ML MDV) ONE (11:54)
[2019-08-14] MEDS ORDERED: ePHEDrine SULFATE/0.9% NACL/PF 50 MG/5 ML SYRINGE IV ONE (11:54)
[2019-08-14] MEDS ORDERED: fentaNYL (PF) 50 MCG/ML 2 ML AMP ONE (11:54)
[2019-08-14] MEDS ORDERED: LACTATED RINGERS 1,000 ML IV ONE ×2 (12:00→15:01)
[2019-08-14] MEDS ORDERED: SODIUM CHLORIDE 0.9% 100 ML with ceFAZolin 2,000 MG IV ONE ×2 (12:40)
--- NOTE | 2019-08-14 14:55 | MM ---
EXAMINATION TYPE: MG pre op loc each addl RT, MG pre op needle loc RT, MG surgical specimen RT DATE OF EXAM: 08/14/2019 COMPARISON: Ultrasound guided biopsy dated 12/21/2018 CLINICAL HISTORY: Right breast high-grade invasive ductal carcinoma at 12:00 treated with chemotherapy. Biopsy-proven axillary lymph node metastasis. TECHNIQUE: Needle localization with wire placement and surgical excision of area of concern in the right breast. FINDINGS: The procedure of needle localization with wire placement and than surgical excision was explained to the patient. Benefits, alternatives, and risks were discussed. An informed consent was then obtained. Preprocedural timeout was performed. The shortest pathway for procedure was chosen. Shortest pathway was CC from above approach. The overlying skin was prepped and draped in usual sterile fashion. 10 cc of lidocaine was used as anesthetic into the skin and subcutaneous tissue up to the level of area of concern for each needle. Two 9 cm needles were used to bracket the mass in the upper outer quadrant. They were placed via a CC from above approach under mammographic guidance. Subsequent 90 degrees mammogram show the needles to be in satisfactory position relative to the targeted area. At this point, wires were placed and the needles were withdrawn. The wires were fixed to patient's skin. Images were marked for surgeon. The patient tolerated the procedure well without any immediate complication. The patient was kept in the radiology department for short stay after the procedure and then taken to surgery for surgical excision. Targeted mass and biopsy markers as well as wires are identified in specimen mammogram. The patient was kept in hospital for short stay after the procedure and then discharged home in stable condition. IMPRESSION: Successful, uncomplicated needle localization with wire placement and surgical excision of a mammographic mass and biopsy markers in the right breast, full pathology results to follow. Pathology Results: Malignant A. RIGHT BREAST, MASTECTOMY: Multifocal invasive high grade ductal carcinoma (Grade 3) and high grade DCIS, margins negative. See Surgical Pathology Cancer Case Summary. B. AXILLARY CONTENTS: Five lymph nodes negative for metastasis. C. DE-EPITHELIALIZED TISSUE: Benign skin and subcutaneous tissue. D. RIGHT REDUCTION BREAST TISSUE: Benign skin, subcutaneous tissue and breast tissue with fibrocystic changes. Recommendation Surgical consult of the right breast. Continued surgical management. [facility]
[2019-08-14] MEDS ORDERED: NALOXONE 0.4 MG/ML 1 ML VIAL IV PRN (16:04)
[2019-08-14] MEDS ORDERED: ONDANSETRON 4 MG/2 ML VIAL IVP PRN (16:04)
[2019-08-14] MEDS ORDERED: HYDROmorphone 1 MG/ML 1 ML SYRINGE IVP PRN (16:04)
[2019-08-14] MEDS ORDERED: HYDROcodone/APAP 5-325MG 1 EACH TAB PO PRN (16:04)
--- NOTE | 2019-08-14 16:04 | P.OP ---
Date of Procedure: 08/14/19 Preoperative Diagnosis: right breast cancer Postoperative Diagnosis: same Procedure(s) Performed: Right axillary node dissection/right breast lumpectomy via Sinclair pattern reduction incision Patient is a 64-year-old white female diagnosed with a right breast stage IIIa invasive ductal carcinoma. She underwent neoadjuvant chemotherapy and presented for surgical treatment. Her breast size is a 44DDD. She preferd to have a lumpectomy via a reduction pattern. She is scheduled for a right axillary node dissection as she initially was noted to have positive nodes via core biopsy, and a right breast lumpectomy via a reduction Sinclair pattern. She was given the option to see a plastic surgeon and declined. Marking of the breast was done in the preoperative area. The patient was taken to the operating room and the right breast and axilla were prepped and draped in a sterile fashion. The axilla was approached initially. An incision was made and carried down through the skin and subcutaneous tissue to the border of the pectoralis major muscle. The tissues were dissected superiorly. The axillary vein was identified. The tissues were then swept inferiorly being careful to maintain hemostasis using the electrocautery device as well as the Harmonic scalpel. The area of the thoracodorsal and long thoracic nerves were clearly identified and preserved. The area of the axilla was dissected free from any suspicious tissue. After we were assured that hemostasis was attained a #10 OLINDA drain was placed. The deep tissues were closed with 3-0 Vicryl. A subcutuciular closure of the skin with a 4-0 Monocryl was preformed. The drain was secured with a nylon suture. The patient tolerated this portion of the procedure in stable condition. The preoperative sinclair reduction pattern markings placed in the pre- operative area were used to guide the resection. The area of the inferior pedical was noted to be approximately 8-9 cm in width and this area was de- epithelialized. Following this superior area of the dissection was performed. Dissection was carried down to the chest wall using the Sinclair pattern markings. This included skin anteriorly in the area of the tumor. She had 2 preoperative wire localization needle placed and both were excised in this portion of the dissection. Wide resection around the tumor was performed. Careful dissection around the area of the tumor was performed this was removed with the reduction specimen. The specimen was painted for orientation. Radiograph revealed the area of concern had been widely removed. The medial and lateral wings of breast tissue from the reduction Sinclair pattern were then removed. The specimens were removed. The wound was well irrigated. The nipple areolar complex appeared to be viable. The tissues were reapproximated using a stapling device. Following this using an inverted T pattern the wound was closed with interrupted Vicryl sutures, removeing the natasha as the vicrly sutures were placed. This was followed with 4 Monocryl subcuticular suture. A size 45 cookie cutter was placed at the new site of the nipple. An incision was made in the skin around the site. The nipple/aerolar complex was delivered. This was secured in place using interrupted 3-0 Vicryl sutures with 4-0 Monocryl subcuticular suture. A nylon suture was then placed. The patient tolerated procedure in stable condition. All instrument and sponge counts were correct at the end of the case. Anesthesia: POLLY Surgeon: Simran Shirley Estimated Blood Loss (ml): 75 IV fluids (ml): 1,600 Urine output (ml): 160 Pathology: other (axillary contents and breast tissue) Condition: stable Disposition: floor Indications for Procedure: Stage IIIA right breast cancer Operative Findings: dense breast tissue Description of Procedure: Leslye is a 64-year-old white female diagnosed with a stage IIIa right breast cancer. She underwent neoadjuvant chemotherapy. She has a size 44D breast. She wished for a lumpectomy to be performed if possible. She wishes to be done via reduction pattern. She is scheduled for a right breast lumpectomy via a reduction pattern and a right axillary dissection. She had preoperative positive lymph nodes. She was given the option see plastic surgeon and declined. The patient was marked in the preoperative area for a right breast lumpectomy to be done via a Sinclair pattern reduction incision. The patient was brought to the operating room and the right breast and axilla were prepped and draped in a sterile fashion. The axilla was approached initially. An incision was made and carried down through the skin and subcutaneous tissue to the pectoralis major muscle. Dissection was performed superiorly to the area of the axillary vein. Tissues were swept inferiorly being careful to identify and preserve the area of the thoracodorsal and long thoracic nerves. Hemostasis was maintained using the electrocautery device and harmonic scalpel. After we were assured that hemostasis was attained and no palpable adenopathy of concern was noted a #10 OLINDA drain was placed. The deep tissues were closed using 3-0 Vicryl suture. The skin was closed using 4-0 Monocryl. The drain was secured using a nylon suture. The area of the breast was approached. The Sinclair pattern markings had been placed in the preoperative area. The inferior pedicle region was identified and the skin was de-epithelialized . Following this the superior incisions for the Sinclair pattern were dissected down to the chest wall. Included in this portion of the dissection was the area of the cancer. This was widely dissected and removed with this portion of the specimen. The specimen was radiographed and the area of concern was removed. Prior to sending this to radiology was painted for orientation. Titanium clips were placed to identify the cavity. Dissection of the area of the cancer included skin anteriorly and dissection down to the pectoralis major posteriorly. The medial and lateral portions of breast that had been previously delineated in the sinclair pattern were removed. At this point the nipple areolar complex appeared to be viable. The wound was irrigated for hemostasis. After assured that hemostasis was attained it was felt that the lumpectomy/reduction sites could be reapproximated. Deep approximation was performed using 3-0 Vicryl suture. Skin was reapproximated using 3-0 Vicryl suture in the subcutaneous tissue and a 4-0 Monocryl in the subcuticular tissue. A #45, cookie cutter was used to delineate the spot for the new nipple areolar complex. This was opened and the nipple areolar complex was brought up into this site. This was secured in place using 3-0 Vicryl and 4-0 Monocryl. A nylon suture was then run around the circumference. All instrument and sponge counts were correct at the end of the case. The patient tolerated procedure in stable condition.
[2019-08-14] MEDS: HYDROmorphone 0.5 MG/0.5 ML SYRINGE IVP PRN ×2 (16:08→16:15)
--- NOTE | 2019-08-14 16:10 | P.NAPBC ---
NAPBC Queries - NAPBC Queries Was patient's case review presented at [facility] tumor board? If no, comment.: Yes Was patient's pathology reviewed at [facility]? If no, comment.: Yes Was breast conservation surgery offered? If no, comment.: Yes Was sentinel node biopsy offered? If no, comment.: No (+ node pre-op on core biopsy) Was diagnosis confirmed by percutaneous core biopsy? If no, comment.: Yes Is patient mastectomy patient?: No Was a preop referral to reconstructive surgeon offered?: Yes (patient declined) Clinical Stage: IIIA had neoadjuvant therapy
[2019-08-14 16:25] VITALS: RESP 16
[2019-08-14 19:09] LABS: Basophils % (A) 0 %; Eosinophils % (A) 0 %; HCT 36.7 % (34.0-46.0); HGB 11.9 gm/dL (11.4-16.0); Lymphocytes # (A) 0.2 k/uL (1.0-4.8); Lymphocytes % (A) 2 %; MCH 30.2 pg (25.0-35.0); MCHC 32.4 g/dL (31.0-37.0); MCV 93.2 fL (80.0-100.0); Mean Platelet Volume 8.5; Monocytes # (A) 0.2 k/uL (0-1.0); Monocytes % (A) 2 %; Neutrophils # (A) 9.3 k/uL (1.3-7.7); Neutrophils % (A) 95 %; Platelet Count 213 k/uL (150-450); RBC 3.94 m/uL (3.80-5.40); RDW 14.3 % (11.5-15.5); WBC 9.8 k/uL (3.8-10.6)
[2019-08-14] MEDS: KETOROLAC 30 MG/ML 1 ML VIAL IVP SCH ×2 (20:07→20:08)
[2019-08-14] MEDS: SODIUM CHLORIDE 0.9% 1,000 ML IV SCH (20:08)
[2019-08-15] MEDS: HEPARIN SODIUM,PORCINE 5,000 UNIT/ML 1 ML VIAL SQ SCH ×2 (01:17→08:33)
[2019-08-15] MEDS: KETOROLAC 30 MG/ML 1 ML VIAL IVP SCH ×3 (01:19→11:25)
[2019-08-15] MEDS: LACTATED RINGERS 1,000 ML IV SCH (03:26)
[2019-08-15] MEDS: SODIUM CHLORIDE 0.9% 1,000 ML IV SCH (03:27)
[2019-08-15 08:13] LABS: Basophils % (A) 0 %; Eosinophils % (A) 0 %; HCT 33.7 % (34.0-46.0); HGB 11.1 gm/dL (11.4-16.0); Lymphocytes # (A) 0.7 k/uL (1.0-4.8); Lymphocytes % (A) 10 %; MCH 30.8 pg (25.0-35.0); MCHC 33.1 g/dL (31.0-37.0); Mean Platelet Volume 8.5; Monocytes # (A) 0.3 k/uL (0-1.0); Monocytes % (A) 5 %; Neutrophils # (A) 6.3 k/uL (1.3-7.7); Neutrophils % (A) 83 %; Platelet Count 176 k/uL (150-450); RBC 3.63 m/uL (3.80-5.40); RDW 14.4 % (11.5-15.5); WBC 7.6 k/uL (3.8-10.6)
[2019-08-15 08:16] VITALS: BP 101/65; PULSE 95; TEMP 98.1
--- NOTE | 2019-08-15 13:02 | P.PN ---
Subjective Progress Note Date: 08/15/19 Principal diagnosis: Postop day #1 right breast lumpectomy The patient is a 64-year-old white female status post right breast lumpectomy and axillary node dissection. The lumpectomy was performed via a Sinclair pattern reduction incision. The patient is doing well at this time without complaints. She is tolerating diet without difficulty. Objective - Vital Signs Vital signs: Vital Signs Temp 98.1 F 08/15/19 07:00 Pulse 95 08/15/19 07:00 Resp 16 08/15/19 08:00 BP 101/65 08/15/19 07:00 Pulse Ox 96 08/15/19 07:00 Intake & Output 08/14/19 08/15/19 08/15/19 18:59 06:59 18:59 Intake Total 2300 Output Total 335 320 500 Balance 1965 -320 -500 Weight 79 kg 79 kg Intake: IV 2300 Output: Drainage 20 Right axilla 20 Urine 260 300 500 Estimated Blood Loss 75 Other: Voiding Method Toilet Toilet # Voids 2 - Exam BMI 31.9 - Constitutional General appearance: Present: obese - EENT Eyes: Present: EOMI ENT: Present: hearing grossly normal - Neck Neck: Present: normal ROM - Respiratory Respiratory: bilateral: CTA - Cardiovascular Rhythm: regular Heart sounds: normal: S1, S2 - Integumentary Integumentary Comment(s): Incisions clean and dry No evidence of any hematoma The periareolar complex appears viable OLINDA site clean and dry approximately 20 mL of serosanguineous fluid Integumentary: Present: normal turgor - Psychiatric Psychiatric: Present: A&O x's 3, appropriate affect, intact judgment & insight - Labs CBC & Chem 7: 08/15/19 07:14 Labs: Abnormal Lab Results - Last 24 Hours (Table) 08/14/19 08/15/19 Range/Units 18:45 07:14 RBC 3.63 L (3.80-5.40) m/uL Hgb 11.1 L (11.4-16.0) gm/dL Hct 33.7 L (34.0-46.0) % Neutrophils # 9.3 H (1.3-7.7) k/uL Lymphocytes # 0.2 L 0.7 L (1.0-4.8) k/uL Assessment and Plan Assessment: Impression: 1. Patient postop day #1 right breast lumpectomy and axillary node dissection, lumpectomy was done via a Sinclair pattern reduction incision 2. Patient tolerating diet without difficulty Plan: 1. Discharge home if okay with medicine 2. Follow-up with Dr. Butler in 1 week 3. Teach patient drain care 4. Patient to call if any concerns or questions
--- NOTE | 2019-08-15 13:10 | P.DS ---
Providers Attending physician: Simran Shirley Consults: 08/14/19 16:07 Consult Physician Routine Consulting Provider: Miguel Simmons Consult Reason/Comments: medical managment Do you want consulting provider notified?: Yes Primary care physician: [facility] Course: Leslye is a 64-year-old white female who underwent a right breast lumpectomy and axillary node dissection for a stage IIIB right breast cancer. She had received neoadjuvant chemotherapy prior to the surgery. Postoperatively she did well with no problems. She is being discharged home to be followed as an outpatient. Procedures: Right breast lumpectomy via reduction mastopexy incision, right axillary node dissection Patient Condition at Discharge: Stable Plan - Discharge Summary Discharge Rx Participant: Yes New Discharge Prescriptions: Continue Sertraline [Zoloft] 50 mg PO HS Lisinopril 20 mg PO HS Discontinued Ibuprofen [Advil] 200 mg PO Q8HR PRN PRN Reason: Pain Discharge Medication List Lisinopril 20 mg PO HS 12/06/18 [History] Sertraline [Zoloft] 50 mg PO HS 12/06/18 [History] Follow up Appointment(s)/Referral(s): Abdon Lopez MD [Primary Care Provider] - 08/21/19 12:30 pm Simran Shirley MD [STAFF PHYSICIAN] - 08/23/19 4:20 pm Activity/Diet/Wound Care/Special Instructions: [facility] [phone] Teaching drain care, drain and record output twice daily and as needed Keep Eleuterio wrap on at all times May shower after 48 hours Discharge home if okay with medicine Discharge Disposition: HOME SELF-CARE
--- NOTE | 2019-08-15 19:15 | P.CONS ---
History of Present Illness - Reason for Consult Consult date: 08/15/19 Medical management Requesting physician: Simran Shirley - Chief Complaint Breast lump - History of Present Illness Consultation: This is a very pleasant 64-year-old patient of Dr. Lopez. Chronic stable medical conditions include hypertension, depression, GERD. Patient was diagnosed with right breast stage IIIa invasive ductal carcinoma. Patient did undergo new a djuvant chemotherapy and underwent right axillary node dissection/right breast lumpectomy via Sinclair pattern reduction incision. Postprocedure pain is controlled. Has OLINDA drains in place. No nausea vomiting. Did tolerate some breakfast this morning. No fever no chills. Has been up to the bathroom. Review of systems: GEN.: None EYES: None HEENT: Loss of scalp hair NECK: None RESPIRATORY: None CARDIOVASCULAR: None GASTROINTESTINAL: Heartburn GENITOURINARY: None MUSCULOSKELETAL: None LYMPHATICS: None HEMATOLOGICAL: None PSYCHIATRY: None NEUROLOGICAL: None. Past medical history to include: Breast cancer, hypertension, depression, GERD Social history: Lives with her daughter. No smoking or alcohol. Family history: Reviewed, noncontributory to presentation Physical examination: VITAL SIGNS: 98.1, 95, 16, 101/65, 96% on room air GENERAL: BMI 31.9, sitting a little bit comfortable. EYES: Pupils equal. Conjunctiva normal. HEENT: External appearance of nose and ears normal, oral cavity grossly normal, loss of scalp hair. NECK: JVD not raised; masses not palpable. HEART: First and second heart sounds are normal; no edema. LUNGS: Respiratory rate normal; clear to auscultation. ABDOMEN: Soft, nontender, liver spleen not palpable, no masses palpable. PSYCH: Alert and oriented x3; mood and affect normal. NEUROLOGICAL: Cranial nerves grossly intact; no facial asymmetry, power and sensation grossly intact. 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 Has been up to the bathroom. Has been ambula ting. Did tolerate her breakfast. Home medications to continue. Pain medications prescribed by surgeon. Care was discussed with the patient question were answered. Thank you Adrien Myles Past Medical History Past Medical History: Cancer, Hypertension Additional Past Medical History / Comment(s): RT BREAST CA 01/17/19. finished chemo 06/28/19, HX of RENAL FAILURE R/T DEHYDRATION YEARS AGO. History of Any Multi-Drug Resistant Organisms: None Reported Past Surgical History: Breast Surgery, Cholecystectomy Additional Past Surgical History / Comment(s): D&C 1984. RT BREAST BIOPSIES. port a cath rt chest Past Anesthesia/Blood Transfusion Reactions: Postoperative Nausea & Vomiting (PONV) Past Psychological History: Depression Additional Psychological History / Comment(s): depression r/t menopause Smoking Status: Never smoker Past Alcohol Use History: None Reported Past Drug Use History: None Reported - Past Family History Mother Family Medical History: No Reported History Medications and Allergies Home Medications Medication Instructions Recorded Confirmed Type Lisinopril 20 mg PO HS 12/06/18 08/14/19 History Sertraline [Zoloft] 50 mg PO HS 12/06/18 08/14/19 History Allergies Allergy/AdvReac Type Severity Reaction Status Date / Time adhesive tape Allergy Rash/Hives Verified 08/10/19 09:31 amlodipine Allergy Swelling Verified 08/10/19 09:31 ciprofloxacin [From Cipro] Allergy Swelling Verified 08/10/19 09:31 citalopram Allergy Hallucinati Verified 08/10/19 09:31 ons Latex, Natural Rubber Allergy Rash/Hives Verified 08/09/19 10:01 diphenhydramine AdvReac Nausea & Unverified 08/09/19 10:01 [From Benadryl] Vomiting doxycycline AdvReac Vomiting Verified 08/09/19 10:01 Physical Exam Vitals: Vital Signs Temp Pulse Pulse Pulse Resp BP BP 08/15/19 07:00 98.1 F 95 16 101/65 08/15/19 06:25 98.2 F 08/15/19 02:45 99.9 F H 87 107/69 08/14/19 19:00 82 123/79 08/14/19 17:30 94 16 140/81 08/14/19 17:15 95 16 109/54 08/14/19 17:01 92 16 149/78 08/14/19 16:46 89 16 161/79 01/28/20 16:31 89 16 153/81 01/28/20 16:22 91 16 150/79 08/14/19 16:07 92 18 148/83 08/14/19 15:52 97.2 F L 93 18 154/76 08/14/19 10:55 98.0 F 77 16 103/70 08/14/19 10:25 98.0 F 78 16 123/85 08/14/19 09:20 98.1 F 88 16 BP Pulse Ox 08/15/19 07:00 96 08/15/19 06:25 08/15/19 02:45 94 L 08/14/19 19:00 96 08/14/19 17:30 98 08/14/19 17:15 98 08/14/19 17:01 98 08/14/19 16:46 98 08/14/19 16:31 98 08/14/19 16:22 95 08/14/19 16:07 98 08/14/19 15:52 98 08/14/19 10:55 08/14/19 10:25 08/14/19 09:20 132/74 97 Intake and Output 08/14/19 08/15/19 08/15/19 22:59 06:59 14:59 Intake Total 400 Output Total 335 320 500 Balance 65 -320 -500 Intake: IV 400 Output: Drainage 20 Right axilla 20 Urine 260 300 500 Estimated Blood Loss 75 Other: Voiding Method Toilet # Voids 1 2 Weight 79 kg Results CBC & Chem 7: 08/15/19 07:14 Labs: Abnormal Lab Results - Last 24 Hours (Table) 08/14/19 08/15/19 Range/Units 18:45 07:14 RBC 3.63 L (3.80-5.40) m/uL Hgb 11.1 L (11.4-16.0) gm/dL Hct 33.7 L (34.0-46.0) % Neutrophils # 9.3 H (1.3-7.7) k/uL Lymphocytes # 0.2 L 0.7 L (1.0-4.8) k/uL
== END 2019-08-15 14:48 | disposition home or self-care (01) ==
LOC: OR 08:54 → 4SSUR 15:26 → OR 08-15 14:48
PROVIDERS: ATTEND Surgery
DX: C50.411 Malignant neoplasm of upper-outer quadrant of right female breast (principal); I10 Essential (primary) hypertension; K21.9 Gastro-esophageal reflux disease without esophagitis; E66.9 Obesity, unspecified; F32.9 Major depressive disorder, single episode, unspecified; M19.90 Unspecified osteoarthritis, unspecified site; Z80.8 Family history of malignant neoplasm of other organs or systems; Z98.890 Other specified postprocedural states; Z90.49 Acquired absence of other specified parts of digestive tract; Z87.440 Personal history of urinary (tract) infections; Z88.8 Allergy status to other drugs, medicaments and biological substances; Z79.899 Other long term (current) drug therapy; Z92.21 Personal history of antineoplastic chemotherapy; Z68.31 Body mass index [BMI] 31.0-31.9, adult; Z88.1 Allergy status to other antibiotic agents; Z91.040 Latex allergy status
CPT/HCPCS: 88305; 85025 ×2; 88309; 76098; 19281; 19282; 19301; 38525; J2250; J1644 ×2; J1100; J2405; J0690; J2001; J3010; J1885; J1642; J0330; J2704; J1170; 88307

== ENCOUNTER → 2019-10-04 | Outpatient (CLI) | payer OTHER ==
[2019-10-04 14:24] VITALS: BP 113/76; PULSE 97; RESP 18; TEMP 98.2
--- NOTE | 2019-10-04 15:03 | P.PN ---
Subjective Progress Note Date: 10/04/19 Principal diagnosis: Stage IIIA right breast cancer Leslye is a 64-year-old white female status post right breast lumpectomy and node dissection on 08-14-19, she is presently on anestrazole. She had neoadjuvant chemotherapy for stage IIIa right breast cancer. Postoperatively she did well and is now ready for radiation therapy. When she had her simulation radiograph performed the lymph node in the axilla which had been biopsy positive pre-neoadjuvant chemotherapy was noted to be present. I have discussed this with radiation oncology and they would like been noted to be removed. The patient status post surgery has done well. She has no complaints related to the surgery. She had a reduction mammoplasty performed and has asymmetry of the breast which she Would be present and is planning to have a contralateral symmetry procedure in the future. Findings [id number] the patient had an MRI performed. This revealed a 6 x 4.9 cm mass in the right breast. At the time of surgery. Residual tumor was only 1.9 cm. Family history: 1. Paternal grandmother: Questionable breast cancer 2. Paternal aunt: Lung cancer she was a smoker 3. Maternal aunt: Brain cancer Hormonal history: Menarche: 10 fistula 28 press-fit: No Menopause: 50 control pills: 5 years Hormones: Negative Surgical history: 1. Cholecystectomy 2. D&C 3. Right breast reduction mammoplasty with lumpectomy and axillary node dissection Medical history: Hypertension Depression Arthritis Social history: Smoke: Negative Alcohol: Negative Drugs: Negative Review of systems: Constitutional:intermittent night sweats Lungs: Negative heart: Hypertension GI: Negative : Negative Musculoskeletal: Arthritis in knees Integument: Intermittent folliculitis Neurologic: Negative Psychiatric: Depression Endocrine: Fatigue Hematologic: Negative Objective - Vital Signs Vital signs: Vital Signs Temp 98.2 F 10/04/19 14:21 Pulse 97 10/04/19 14:21 Resp 18 10/04/19 14:21 BP 113/76 10/04/19 14:21 Pulse Ox 96 10/04/19 14:21 Intake & Output 10/03/19 10/04/19 10/04/19 18:59 06:59 18:59 Weight 76.657 kg - Exam BMI 30.9 - Constitutional General appearance: Present: obese - EENT Eyes: Present: EOMI ENT: Present: hearing grossly normal - Neck Neck: Present: normal ROM - Respiratory Respiratory: bilateral: CTA - Cardiovascular Rhythm: regular Heart sounds: normal: S1, S2 - Gastrointestinal General gastrointestinal: Present: soft - Integumentary Integumentary: Present: normal turgor - Musculoskeletal Musculoskeletal: Present: gait normal - Psychiatric Psychiatric: Present: A&O x's 3, appropriate affect, intact judgment & insight - Additional findings Additional findings: breast exam: inspection: asymmetry of the breast palpation: right breast: well healed scars from reduction mammoplasty, no lesions of concern right axilla: no adenopathy of concern Left breast: multipositional exam no lesions of concern fibrocystic changes left axillla: no adenopathy of concern Assessment and Plan Assessment: Impression: Hypertension Depression Arthritis status post right breast lumpectomy and axillary node disection/pre neoadjuvant chemotherapy axillary node was biopsied and a clip was left, this was not removed at the time of the axillary dissection and on core biopsy was positive for cancer Plan: 1. Ultrasound of right axilla to ascertain if the node can't be identified 2. radiographic localization of the right node followed by resection in the operating room Risk and benefits of the surgery discussed with the patient including bleeding, infection, and reaction to the anesthetic. We also discussed that although she will have radiographic localization of the lymph node the Cameron to remove this secondary to movement of the needle or inability to identify this at the time of surgery. She understands and wishes to proceed. Cc: Dr. Rbuy encounter 40 minutes > 50% of time spent in planning and counselling
--- NOTE | 2019-10-05 09:33 | USB ---
Reason for exam: clinical finding. History: Patient is postmenopausal and has history of breast cancer at age 64. Malignant MG pre op loc each addl RT of the right breast, August 14, 2019. Malignant MG pre op needle loc RT of the right breast, August 14, 2019. Mastectomy of the right breast, August 14, 2019. Benign US biopsy breast VAD RT of the right breast, February 08, 2019. Malignant US breast needle core addl RT of the right breast, December 21, 2018. Malignant US biopsy breast VAD RT of the right breast, December 21, 2018. Malignant US biopsy breast add'l VAD RT of the right breast, December 21, 2018. Benign excisional biopsy of the right breast, 2017. US Breast Axilla RT Right limited breast ultrasound including focal area of concern, retroareolar and axilla demonstrates a 7 x 2.8 x 6.4cm hypoechoic fluid collection at the posterior nipple. Right axillary node seen with an interval hydramark, amendable to ultrasound guided needle localization. These results were verbally communicated with the patient and result sheet given to the patient on 10/04/19. ASSESSMENT: Known biopsy proven malignancy, BI-RAD 6 RECOMMENDATION: Localization and excision of the right breast. (under ultrasound)
== END | disposition home or self-care (01) ==
LOC: WWCWWP 13:55
PROVIDERS: ATTEND Surgery
DX: R92.8 Other abnormal and inconclusive findings on diagnostic imaging of breast (principal); Z85.3 Personal history of malignant neoplasm of breast

== ENCOUNTER 2019-10-09 08:49 | Day surgery (SDC) | payer OTHER ==
[2019-10-08 08:33] VITALS: BMI 31.1
[~2019-10-09 08:49] MED LIST changes: +HYDROmorphone 0.5 MG/0.5 ML SYRINGE IVP PRN; +LACTATED RINGERS 1,000 ML IV SCH; +LIDOCAINE 1% (10MG/ML) FOR IV START INTRADERMA PRN; -LIDOCAINE 1% 20 ML VIAL (10MG/ML) FOR IV START INTRADERMA PRN; -METOCLOPRAMIDE 5 MG/ML 2 ML VIAL IVP PRN; +SCOPOLAMINE 1.5MG/72HR PATCH TRANSDERM ONE
[2019-10-09 09:07] VITALS: RESP 16
[2019-10-09] MEDS ORDERED: ALPRAZolam 0.25 MG TAB PO ONE (09:40)
[2019-10-09] MEDS ORDERED: LIDOCAINE 1%-EPI 1:100,000 20 ML VIAL SQ ONE (10:21)
[2019-10-09] MEDS ORDERED: LIDOCAINE 1% INJ 10MG/ML (20 ML MDV) SQ ONE ×4 (10:21→13:56)
[2019-10-09] MEDS ORDERED: PHENYLEPHRINE-0.9% NACL SYG 1 MG/10 ML SYRINGE ONE (12:30)
[2019-10-09] MEDS ORDERED: GLYCOPYRROLATE 0.2 MG/ML 2 ML VIAL ONE (12:30)
[2019-10-09] MEDS ORDERED: MIDAZOLAM 2 MG/2 ML VIAL ONE (12:30)
[2019-10-09] MEDS ORDERED: PROPOFOL 10 MG/ML 20 ML VIAL IV ONE (12:30)
[2019-10-09] MEDS ORDERED: fentaNYL (PF) 50 MCG/ML 2 ML AMP ONE (12:30)
[2019-10-09] MEDS ORDERED: LIDOCAINE 1% INJ 10MG/ML (20 ML MDV) ONE (12:30)
[2019-10-09] MEDS ORDERED: SUCCINYLCHOLINE CHLORIDE 100 MG/5 ML SYR IV ONE (12:30)
[2019-10-09] MEDS ORDERED: LACTATED RINGERS 1,000 ML IV ONE (12:35)
--- NOTE | 2019-10-09 14:01 | P.OP ---
Date of Procedure: 10/09/19 Preoperative Diagnosis: Needle Localization of an axillary node of concern Postoperative Diagnosis: same Procedure(s) Performed: removal of axillary node Anesthesia: POLLY Surgeon: Simran Shirley Estimated Blood Loss (ml): 5 IV fluids (ml): 700 Pathology: other (axilary tissue) Condition: stable Disposition: same day Indications for Procedure: Leslye is a 64-year-old white female status post lumpectomy and axillary node dissection for malignancy. She did receive neoadjuvant chemotherapy and the neoadjuvant node had been biopsied with a clip left. The patient went for radiation oncology appeared that the node which had been biopsied prior to neoadjuvant therapy was still present. She therefore had needle localization of this node for resection in the operating room. Operative Findings: axillary node notec Description of Procedure: The patient is a 64-year-old white female who had needle localization of a neoadjuvant lymph node which have been positive for cancer prior to her neoad juvant therapy. She had undergone an axillary dissection and the node was inferior to the area of dissection. Needle localization was performed. The patient was taken to the operating room and following induction of general anesthesia the right breast and axilla were prepped and draped in a sterile fashion. An incision was made and carried down to the needle. The surrounding tissue was removed which followed to the muscle of the chest wall. The surrounding tissue was excised and the needle had gone through a lymph node. This was believed to be the lymph node of concern. This was removed and sent to radiology for evaluation. The wound was irrigated. The deep tissues were closed using 3-0 Vicryl suture. The skin was closed using 3-0 Vicryl suture in the subcutaneous tissue and a 4-0 Monocryl. Steri-Strips were applied. The patient tolerated the procedure in stable condition. All instrument and sponge counts were correct at the end of the case.
--- NOTE | 2019-10-09 14:11 | P.DS ---
Providers Attending physician: Simran Shirley Primary care physician: Abdon Lopez Plan - Discharge Summary Discharge Rx Participant: Yes New Discharge Prescriptions: No Action Sertraline [Zoloft] 50 mg PO HS Lisinopril 20 mg PO HS Cholecalciferol [Vitamin D3 (25 Mcg = 1000 Iu)] 2,000 unit PO HS Anastrozole [Arimidex] 1 mg PO HS Montelukast [Singulair] 10 mg PO HS Formula 303 1 tab PO DAILY Discharge Medication List Lisinopril 20 mg PO HS 12/06/18 [History] Sertraline [Zoloft] 50 mg PO HS 12/06/18 [History] Anastrozole [Arimidex] 1 mg PO HS 08/31/19 [History] Cholecalciferol [Vitamin D3 (25 Mcg = 1000 Iu)] 2,000 unit PO HS 08/31/19 [History] Formula 303 1 tab PO DAILY 10/08/19 [History] Montelukast [Singulair] 10 mg PO HS 10/08/19 [History] Follow up Appointment(s)/Referral(s): Simran Shirley MD [STAFF PHYSICIAN] - 1 Week Activity/Diet/Wound Care/Special Instructions: do not drive until seen by Dr. Butler may shower after 48 hours wear bra at all times unless showering
--- NOTE | 2019-10-09 14:23 | USB ---
EXAM: Needle localization with wire placement. CLINICAL HISTORY: Biopsy-proven cancer involvement low right axillary lymph node. TECHNIQUE: Needle localization with wire placement and surgical excision of area of concern in the right breast. COMPARISON: Most recent right breast ultrasound October 04, 2019 and older studies including CT January 15, 2019. FINDINGS: The procedure of needle localization with wire placement and than surgical excision was explained to the patient. Benefits, alternatives, and risks were discussed. An informed consent was then obtained. The lesion is seen under ultrasound similar to study performed 5 days earlier. The overlying skin was prepped and draped in usual sterile fashion. Lidocaine buffered is used as anesthetic into the skin. Lidocaine is used as anesthetic into the deeper tissue up to the level of area of concern. A 5 cm needle was used. It was placed via a lateral approach under ultrasound guidance after needle and wire transversed through the lymph node with clip. At this point, wire was placed and the needle was withdrawn. The wire was fixed to patient's skin. Post procedure mammogram performed as per surgeon request. Images were marked for surgeon. Only the lateral image due to marked posterior positioning shows wire through the lymph node with adjacent clip towards the axilla. This corresponds to mammogram December 21, 2018. The patient tolerated the procedure well without any immediate complication. The patient was kept in the radiology department for short stay after the procedure and then taken to surgery for surgical excision. Targeted wire is seen on attempted sonographic specimen but not definitive subcentimeter lymph node or targeted clip. Targeted clip and wire are better identified in specimen mammogram with suspected lymph node. Wire is noted broken incidentally. The patient was kept in hospital for short stay after the procedure and then discharged home in stable condition. IMPRESSION: Successful, uncomplicated needle localization with wire placement and surgical excision of targeted lymph node and clip in the right breast, full pathology results to follow. Pathology Results: Malignant RIGHT AXILLARY LYMPH NODES, REGIONAL DISSECTION: One of four lymph nodes with metastatic carcinoma. All four nodes show post surgical/therapeutic reactive changes. Appropriately controlled immunohistochemical stains for TALITA and CAM5.2 are positive for metastatic carcinoma on block A1; cytokeratin 7 shows some subcapsular staining. These findings are diagnostic of metastatic adenocarcinoma measuring greater than 0.2 mm but less than 2.0 mm in greatest dimension (pN1mi). Recommendation Surgical consult of the right breast. MTDD
[2019-10-09 14:42] VITALS: TEMP 97.6
[2019-10-09 15:38] VITALS: BP 131/66; PULSE 82
--- NOTE | 2019-10-16 10:52 | P.PN ---
Progress Note - Text Progress Note Date: 10/16/19 Leslye is a 64-year-old white female status post lumpectomy and axillary node dissection. She did receive neoadjuvant chemotherapy and prior to this blue lymph node which had been biopsied had a clip left in place. This node had been positive. At the time of surgery the node was not removed although an axillary dissection had been performed. She therefore had [place] [address]. The patient postoperatively has done well. The pathology did reveal a 2 mm focus of tumor in one of 4 nodes removed. The node with the clip was removed. The patient has had a total of 9 lymph nodes removed with a less than 2 mm focus in one of the nodes. Her case was discussed with the radiation oncology. Her case was discussed with the patient as well. She is going to follow with radiation and medical oncology. At this time she states she is doing well postoperatively. She has no complaints. She wishes not to come into the hospital secondary to the villalba virus concerns. She will follow up here on the villalba virus concerns have updated. We will t entatively schedule for approximately 4-6 weeks from now.
== END 2019-10-09 16:07 | disposition home or self-care (01) ==
LOC: OR 08:49
PROVIDERS: ATTEND Surgery
DX: C77.3 Secondary and unspecified malignant neoplasm of axilla and upper limb lymph nodes (principal); C50.911 Malignant neoplasm of unspecified site of right female breast; I10 Essential (primary) hypertension; F32.9 Major depressive disorder, single episode, unspecified; M19.90 Unspecified osteoarthritis, unspecified site; Z79.899 Other long term (current) drug therapy; Z88.1 Allergy status to other antibiotic agents; Z88.8 Allergy status to other drugs, medicaments and biological substances; Z91.040 Latex allergy status; Z91.048 Other nonmedicinal substance allergy status; Z90.49 Acquired absence of other specified parts of digestive tract; Z98.890 Other specified postprocedural states; Z92.21 Personal history of antineoplastic chemotherapy; Z80.1 Family history of malignant neoplasm of trachea, bronchus and lung; Z80.8 Family history of malignant neoplasm of other organs or systems
CPT/HCPCS: 88342; 88307; 88341; 77065; 76098; 76999; 19285; 38525; J2250; J1644; J1100; J2405; J2001; J3010; J2370; J0330; J2704

== ENCOUNTER 2020-01-07 07:24 | Day surgery (SDC) | payer OTHER ==
[2020-01-03 15:39] VITALS: BMI 31.4
[~2020-01-07 07:24] MED LIST changes: +ACETAMINOPHEN TAB 500 MG TAB PO ONE; -LIDOCAINE 1% (10MG/ML) FOR IV START INTRADERMA PRN; -Pre Op ABX Message 1 EACH MISC MISCELLANE ONE; -SCOPOLAMINE 1.5MG/72HR PATCH TRANSDERM ONE
[2020-01-07 07:51] VITALS: TEMP 97
--- NOTE | 2020-01-07 08:01 | P.GSHP ---
History of Present Illness H&P Date: 01/07/20 Chief Complaint: Breast cancer 64-year-old female underwent Port-A-Cath placement for the treatment of right breast cancer. Patient did well through her therapy. Now here today for Port-A-Cath removal. No issues with her port. Past Medical History Past Medical History: Cancer, GERD/Reflux, Hypertension, Osteoarthritis (OA) Additional Past Medical History / Comment(s): RT BREAST CA 01/17/19. finished chemo 06/28/19, HX of RENAL FAILURE R/T DEHYDRATION YEARS AGO. History of Any Multi-Drug Resistant Organisms: None Reported Past Surgical History: Breast Surgery, Cholecystectomy Additional Past Surgical History / Comment(s): D&C, RT BREAST BIOPSIES. port a cath rt chest, rt breast lumpectomy and removal of lymph node x 2, rt breast augmentation Past Anesthesia/Blood Transfusion Reactions: Postoperative Nausea & Vomiting (PONV) Additional Past Anesthesia/Blood Transfusion Reaction / Comment(s): vomiting after general anesthesia Smoking Status: Never smoker - Past Family History Mother Family Medical History: No Reported History Medications and Allergies Home Medications Medication Instructions Recorded Confirmed Type Lisinopril 20 mg PO HS 12/06/18 01/03/20 History Sertraline [Zoloft] 25 mg PO HS 12/06/18 01/03/20 History Anastrozole [Arimidex] 1 mg PO HS 08/31/19 01/03/20 History Cholecalciferol [Vitamin D3 (25 50 mcg PO HS 08/31/19 01/03/20 History Mcg = 1000 Iu)] Acetaminophen [Tylenol Extra 1,000 mg PO DIRECTED PRN 01/03/20 01/03/20 History Strength] Allergies Allergy/AdvReac Type Severity Reaction Status Date / Time adhesive tape Allergy Rash/Hives Verified 01/03/20 15:28 amlodipine Allergy Swelling Verified 01/03/20 15:28 ciprofloxacin [From Cipro] Allergy Swelling Verified 01/03/20 15:28 citalopram Allergy Hallucinati Verified 01/03/20 15:28 ons Latex, Natural Rubber Allergy Rash/Hives Verified 01/03/20 15:28 diphenhydramine AdvReac Nausea & Unverified 01/03/20 15:28 [From Benadryl] Vomiting doxycycline AdvReac Vomiting Verified 01/03/20 15:28 Surgical - Exam Vital Signs Temp Pulse Resp BP Pulse Ox 97 F L 74 16 115/72 98 01/07/20 07:50 01/07/20 07:50 01/07/20 07:50 01/07/20 07:50 01/07/20 07:50 Physical exam: General: Well-developed, well-nourished HEENT: Normocephalic, sclerae nonicteric Abdomen: Nontender, nondistended Extremities: No edema Neuro: Alert and oriented Assessment and Plan (1) Breast cancer Narrative/Plan: Will proceed with Port-A-Cath removal at this time. Current Visit: No Status: Acute Code(s): C50.919 - MALIGNANT NEOPLASM OF UNSP SITE OF UNSPECIFIED FEMALE BREAST SNOMED Code(s): 044633645
[2020-01-07] MEDS ORDERED: fentaNYL (PF) 50 MCG/ML 2 ML AMP ONE (09:03)
[2020-01-07] MEDS ORDERED: PROPOFOL 10 MG/ML 20 ML VIAL IV ONE (09:03)
[2020-01-07] MEDS ORDERED: MIDAZOLAM 2 MG/2 ML VIAL ONE (09:03)
[2020-01-07] MEDS ORDERED: LIDOCAINE (PF) 10 MG/ML 5ML AMP SQ ONE ×2 (09:19)
[2020-01-07] MEDS ORDERED: HYDROcodone/APAP 5-325MG 1 EACH TAB PO PRN (09:42)
[2020-01-07] MEDS ORDERED: NALOXONE 0.4 MG/ML 1 ML VIAL IV PRN (09:42)
--- NOTE | 2020-01-07 09:43 | P.PCN ---
Date of Procedure: 01/07/20 Procedure(s) Performed: PREOPERATIVE DIAGNOSIS: Breast cancer POSTOPERATIVE DIAGNOSIS: Same PROCEDURE: Port-A-Cath removal SURGEON: Kusum EBL: Minimal ANESTHESIA: Sedation COMPLICATIONS: None OPERATIVE PROCEDURE: Patient was placed in the supine position. The patient was sedated per anesthesia that time. The chest was prepped and draped in the usual sterile fashion. The skin was localized with Marcaine solution. The previous incision was re-incised using a scalpel. The port was easily excised using accommodation of blunt dissection sharp dissection and electrocautery. The subcutaneous tissues were reapproximated using 3-0 Vicryl sutures. The skin was reapproximated using 4-0 Monocryl sutures. Skin glue was then applied. DISPOSITION: Stable to recovery room
[2020-01-07 10:03] VITALS: BP 101/69; PULSE 77; RESP 17
== END 2020-01-07 10:20 | disposition home or self-care (01) ==
LOC: OR 07:24
PROVIDERS: ATTEND Surgery
DX: Z45.2 Encounter for adjustment and management of vascular access device (principal); Z85.3 Personal history of malignant neoplasm of breast; I10 Essential (primary) hypertension; K21.9 Gastro-esophageal reflux disease without esophagitis; M19.90 Unspecified osteoarthritis, unspecified site; Z90.49 Acquired absence of other specified parts of digestive tract; Z92.21 Personal history of antineoplastic chemotherapy; Z87.448 Personal history of other diseases of urinary system; Z79.899 Other long term (current) drug therapy; Z88.1 Allergy status to other antibiotic agents; Z88.8 Allergy status to other drugs, medicaments and biological substances; Z91.048 Other nonmedicinal substance allergy status; Z91.040 Latex allergy status; Z90.11 Acquired absence of right breast and nipple
CPT/HCPCS: 36590; J2250; J1644; J1100; J0690; J2405; J2001; J3010; J2704

== ENCOUNTER → 2020-01-11 | Outpatient (CLI) | payer OTHER ==
[2020-01-11 14:08] VITALS: BP 129/85; PULSE 91; RESP 20; TEMP 98.4
--- NOTE | 2020-01-11 15:10 | P.PN ---
Subjective Progress Note Date: 01/11/20 Principal diagnosis: Stage III right breast cancer Leslye is a 64-year-old white female status post right breast partial mastectomy and axillary node dissection on . She is status post neoadjuvant chemotherapy for stage IIIa right breast cancer. She had neoadjuvant dose dense AC and completed 4 cycles on . On she started weekly Taxol and completed 06-26-19 She started anestrazole August 2019. She completed radiation therapy of the right breast November 2019. She underwent a right breast partial mastectomy and 5 axillary nodes removed on . The pathology revealed all margins were uninvolved by invasive cancer. The patient had DCIS also uninvolved by the margins the closest margin for DCIS was 4 mm from the posterior margin. Lymph nodes revealed 5 nodes all negative for metastatic disease. The patient however, preoperatively had a node sampled which was positive and there was concern that this was not identified in the specimen. She therefore was taken back to surgery and and 4 additional lymph nodes were removed with an needle localization of the one of concern. This revealed 1 of 4 nodes with metastatic carcinoma. Her breast size prior to treatment was 44 DDD. After the partial mastectomy of the right breast and radiation therapy she has marked asymmetry of the breasts. She would like to have a symmetry procedure performed on the left breast. The patient does not feel any lumps masses or nodules in either breast. She has no problems or complaints related to the procedure other than the asymmetry of the breasts. The asymmetry causes discomfort in her back because of the large size of the left breast. Additionally she has difficulty finding clothes to fit, his causes her anxiety. She has not had a mammogram since November of 2018. Family history: 1. paternal grandmother: ? breast cancer 2. paternal aunt: smokers lung cancer 3. maternal aunt: brain cancer Hormonal history: Menarche: 10 first at 28, breast fed: no menopasue: 50 BCP: 5 years hormones: none Past surgical history: 1. gallbladder 2. D&C Medical history: HTN depression arthritis Social History: smoke: none Alcohol: Negative Drugs: Negative - Constitutional Constitutional: Reports sweats - EENT Eyes: denies blurred vision, denies pain Ears: deny: decreased hearing, tinnitus Ears, nose, mouth and throat: Denies headache, Denies sore throat - Breasts Breasts: bilateral: as per HPI - Cardiovascular Cardiovascular: Reports high blood pressure - Respiratory Respiratory: Denies cough - Gastrointestinal Gastrointestinal: Denies abdominal pain, Denies diarrhea, Denies nausea, Denies vomiting - Genitourinary (Female) Genitourinary: Denies dysuria, Denies hematuria - Menstruation Menstruation: Reports postmenopausal - Musculoskeletal Comment: Arthritis in knees - Integumentary Comment: Intermittent folliculitis - Neurological Neurological: Denies numbness, Denies weakness - Psychiatric Psychiatric: Reports depression - Endocrine Endocrine: Reports fatigue, Denies weight change - Hematologic/Lymphatic Comment: none - Allergic/Immunologic Allergic/Immunologic: Reports as per HPI Objective - Vital Signs Vital signs: Vital Signs Temp 98.4 F 01/11/20 14:06 Pulse 91 01/11/20 14:06 Resp 20 01/11/20 14:06 BP 129/85 01/11/20 14:06 Pulse Ox 98 01/11/20 14:06 Intake & Output 01/10/20 01/11/20 01/11/20 18:59 06:59 18:59 Weight 77.111 kg - Exam BMI 31.1 - Constitutional General appearance: Present: obese - EENT Eyes: Present: EOMI ENT: Present: hearing grossly normal - Neck Neck: Present: normal ROM - Respiratory Respiratory: bilateral: CTA - Cardiovascular Rhythm: regular Heart sounds: normal: S1, S2 - Gastrointestinal General gastrointestinal: Present: soft - Integumentary Integumentary: Present: normal turgor - Musculoskeletal Musculoskeletal: Present: gait normal - Psychiatric Psychiatric: Present: A&O x's 3, appropriate affect, intact judgment & insight - Additional findings Additional findings: Breast exam: BRA: 44DDD inspection: grade 2 ptosis left breast, grade 3 ptosis left breast palpation: Right breast: Multi-positional exam postop changes no dominant masses or nodules of concern Right axilla: No adenopathy of concern Left breast: Positional exam fibrocystic changes, no dominant masses or nodules of concern Left axilla: No adenopathy of concern Assessment and Plan Assessment: Impression: 1. She is status post right breast partial mastectomy and axillary node dissection for stage III right breast cancer, no evidence of recurrent disease at this time 2. Marked asymmetry of the breast causing anxiety for the patient as well as back pain Plan: 1. Bilateral breast mammogram 2. Left breast reduction mammoplasty secondary to asymmetry caused by surgery for breast cancer in the right breast 3. Clearance from medical oncology 4. Clearance from medicine Risks and benefits of reduction mammoplasty of the left breast were discussed with the patient and her sister. The left breast was marked for a Sinclair pattern reduction mammoplasty in the office today. Risks include but are not limited to bleeding, infection, reaction to the anesthetic. The patient understands that the breast would not be completely symmetric and the location of the periareolar complex may be not completely symmetric. Additionally she is given the option of seeing a plastic surgeon and has chosen not to do so. CC: Dr. Lopez encounter 45 minutes, > 50% of time spent in planning and counselling
== END | disposition home or self-care (01) ==
LOC: WWCWWP 13:57
PROVIDERS: ATTEND Surgery
DX: Z53.9 Procedure and treatment not carried out, unspecified reason (principal)

== ENCOUNTER → 2020-01-18 | Outpatient (CLI) | payer MEDICARE, OTHER ==
--- NOTE | 2020-01-22 09:06 | MM ---
Reason for exam: additional evaluation requested from prior study. Last mammogram was performed 3 months ago. History: Patient is postmenopausal and has history of breast cancer at age 64. Family history of breast cancer in paternal grandmother at age 50. Malignant US breast surgical specimen RT of the right breast, October 09, 2019. Malignant US breast localization RT of the right breast, October 09, 2019. Malignant MG pre op loc each addl RT of the right breast, August 14, 2019. Malignant MG pre op needle loc RT of the right breast, August 14, 2019. Mastectomy of the right breast, August 14, 2019. Reduction of the right breast, July 2019. Lumpectomy of the right breast, July 2019. Benign US biopsy breast VAD RT of the right breast, February 08, 2019. Malignant US breast needle core addl RT of the right breast, December 21, 2018. Malignant US biopsy breast VAD RT of the right breast, December 21, 2018. Malignant US biopsy breast add'l VAD RT of the right breast, December 21, 2018. Benign excisional biopsy of the right breast, 2018. Benign excisional biopsy of the right breast, 2017. Chemotherapy. Radiation therapy. Taking other hormone for 5 months. Physical Findings: Nurse did not find any significant physical abnormalities on exam. MG 3D Diag Mammo W/Cad JELENA Bilateral CC and MLO view(s) were taken. Prior study comparison: October 09, 2019, right breast MG diagnostic mammo RT wo CAD. February 08, 2019, right breast MG diagnostic mammo RT wo CAD. No significant new findings when compared with previous films. These results were verbally communicated with the patient and result sheet given to the patient on 01/18/20. ASSESSMENT: Benign, BI-RAD 2 RECOMMENDATION: Follow-up diagnostic mammogram of both breasts in 1 year.
== END | disposition home or self-care (01) ==
LOC: RADMAMWWP 14:48
PROVIDERS: ATTEND Surgery
DX: Z85.3 Personal history of malignant neoplasm of breast (principal)
CPT/HCPCS: 77066; G0279; 77062

== ENCOUNTER → 2020-01-30 | Outpatient (CLI) | payer MEDICARE, OTHER ==
--- NOTE | 2020-01-31 09:52 | BD ---
EXAMINATION TYPE: Axial Bone Density DATE OF EXAM: 01/30/2020 COMPARISON: NONE CLINICAL HISTORY: Breast cancer with hormonal replacement therapy postmenopausal Height: 62 IN Weight: 170 LBS RISK FACTORS HISTORY OF: Active: YES Postmenopausal woman: AGE 50 MEDICATIONS: Additional Medications: VIT D, BLOOD PRESSURE MEDS, ANTI DEPRESSANT, ARIMIDEX Additional History: BREAST CA WITH CHEMO AND RADIATION EXAM MEASUREMENTS: Bone mineral densitometry was performed using the in2nite System. Bone mineral density as measured about the Lumbar spine is: ----- L1-L4(G/cm2): 1.139 T Score Values are as follows: ----- L2: -0.5 ----- L3: -0.2 ----- L4: -0.3 ----- L1-L4: -0.3 Bone mineral density BASELINE Bone mineral density about the R hip (g/cm2): 0.801 Bone mineral density about the L hip (g/cm2): 0.754 T Score values are as follows: -----R Neck: -1.7 -----L Neck: -2.0 -----R Total: -1.4 -----L Total: -1.1 Bone mineral density BASELINE IMPRESSION: Osteopenia (T Score between -2.5 and -1). There is slightly increased risk of fracture and the patient may be considered for treatment. Re-Screen 2-5 years. NOTE: T-SCORE=SD OF THE YOUNG ADULT MEAN.
== END | disposition home or self-care (01) ==
LOC: RADBDWWP 16:05
PROVIDERS: ATTEND Internal Medicine Hematology & Oncology
DX: C50.811 Malignant neoplasm of overlapping sites of right female breast (principal); Z13.820 Encounter for screening for osteoporosis; M85.80 Other specified disorders of bone density and structure, unspecified site; Z88.1 Allergy status to other antibiotic agents; Z88.8 Allergy status to other drugs, medicaments and biological substances; Z88.2 Allergy status to sulfonamides
CPT/HCPCS: 77080

== ENCOUNTER 2020-02-05 08:09 | Day surgery (SDC) | payer MEDICARE, OTHER ==
[2020-02-01 14:26] VITALS: BMI 31.1
[~2020-02-05 08:09] MED LIST changes: -ACETAMINOPHEN TAB 500 MG TAB PO ONE; +LIDOCAINE 1% (10MG/ML) FOR IV START INTRADERMA PRN; +Pre Op ABX Message 1 EACH MISC MISCELLANE ONE
[2020-02-05] MEDS ORDERED: HEPARIN SODIUM,PORCINE 5,000 UNIT/ML 1 ML VIAL ONE (09:05)
[2020-02-05] MEDS ORDERED: ONDANSETRON 4 MG/2 ML VIAL ONE (09:05)
[2020-02-05] MEDS ORDERED: LIDOCAINE 1% INJ 10MG/ML (20 ML MDV) ONE (09:54)
[2020-02-05] MEDS ORDERED: fentaNYL (PF) 50 MCG/ML 2 ML AMP ONE (09:54)
[2020-02-05] MEDS ORDERED: GLYCOPYRROLATE 0.2 MG/ML 2 ML VIAL ONE (09:54)
[2020-02-05] MEDS ORDERED: PHENYLEPHRINE-0.9% NACL SYG 1 MG/10 ML SYRINGE ONE (09:54)
[2020-02-05] MEDS ORDERED: MIDAZOLAM 2 MG/2 ML VIAL ONE (09:54)
[2020-02-05] MEDS ORDERED: PROPOFOL 10 MG/ML 20 ML VIAL IV ONE (09:54)
[2020-02-05] MEDS ORDERED: SUCCINYLCHOLINE CHLORIDE 100 MG/5 ML SYR IV ONE (09:54)
[2020-02-05] MEDS ORDERED: ePHEDrine SULFATE/0.9% NACL/PF 50 MG/5 ML SYRINGE IV ONE (09:54)
[2020-02-05] MEDS ORDERED: SODIUM CHLORIDE 0.9% 50 ML with ceFAZolin 2,000 MG IV ONE ×2 (10:25)
[2020-02-05] MEDS ORDERED: LACTATED RINGERS 1,000 ML IV ONE (12:03)
--- NOTE | 2020-02-05 13:06 | P.OP ---
Date of Procedure: 02/05/20 Preoperative Diagnosis: Asymmetry of the breast related to right partial mastectomy for stage IIIa breast cancer Postoperative Diagnosis: Same Procedure(s) Performed: left breast reduction mastopexy via Sinclair pattern incision Anesthesia: POLLY Surgeon: Simran Shirley Estimated Blood Loss (ml): 25 IV fluids (ml): 1,100 Pathology: other (Breast tissue) Condition: stable Disposition: same day Indications for Procedure: Asymmetry of the breast secondary to right breast partial mastectomy for stage IIIa breast cancer Operative Findings: Fibrofatty breast tissue Description of Procedure: Leslye is a 64-year-old white female status post right breast partial mastectomy for stage IIIa breast cancer. Her bra size was 44DDD, and following the lumpectomy and radiation therapy there was marked asymmetry between the right and left breasts. The patient wished to have a symmetry procedure performed on the left breast. Risk and benefits of the procedure were discussed including bleeding, infection, reaction to the anesthetic. She also understood that she could lose sensation to the nipple areolar complex or the nipple areolar complex. She was given the option of seeing a plastic surgeon and declined. The patient wished to proceed with surgical reduction of the left breast. The patient was seen in the preoperative area and the left breast was marked for the reduction mastopexy, using a Sinclair pattern outline. This was measured against the right breast to try to create symmetry for the breast as well as the new nipple areolar complex location. She was then brought to the op erative suite and following induction of anesthesia both breast were prepped and draped in a sterile fashion. The markings were again outlined after the patient was asleep. A 45 cookie cutter was utilized for the nipple areolar outline. An inferior pedicle approach via a Sinclair pattern reduction incision was utilized. An 8 cm inferior pedicle was de-epithelialized beginning from the line of the inferior transverse incision and extending to the circumareolar area, around the nipple areolar complex. The medial aspect of our reduction incision was then approached. The skin was scored along this outline and the skin was removed from the medial aspect of our incision. It was then scored laterally and the skin was removed. Following this the breast tissue was freed from the skin using the electrocautery for dissection. The plane used was the anterior breast fascial plane. After the breast mound had been freed from the skin, breast tissue was removed from the lateral aspect of hte breast. The tissue and the skin removed were weighed and this was 370 g. The tissue removed was 13 cm x 10 cm in the lateral aspect of the breast. The dissection on the right side had been approximately 15 cm x 13 cm. After we were assured that hemostasis was attained the wound was well irrigated. Surgicel in powder form was placed. The vertical incisions both medial and lateral was brought together using a 3-0 Vicryl suture. The skin opening for the nipple areolar complex was de- epithelialized, and a cruciate incision was made in this area. The locr cutter had been used to outline this area. Prior to beginning our dissection a stapler was placed at the 12 o'clock position on both the nipple areolar complex and the new location of the nipple areolar complex. Likewise 2 natasha were placed at the 3 o'clock position of the areolar complex and the new location of the areolar complex. The stapled markings allowed us to bring the nipple areolar complex to its new location and secured it in place with a Vicryl suture. The remainder of the incisions were closed using the interrupted Vicryl suture. Interrupted 3-0 Vicryl suture followed by a running 4-0 Monocryl suture was used to close all the incisions. This was followed by a 4-0 nylon suture. The patient was placed in the sitting position and there was noted to be good symmetry between the breast. All instrument and sponge counts were correct at the end of the case. The patient tolerated the procedure in stable condition.
[2020-02-05 13:08] VITALS: TEMP 98
--- NOTE | 2020-02-05 13:09 | P.DS ---
Providers Attending physician: Simran Shirley Primary care physician: Abdon Lopez Plan - Discharge Summary Discharge Rx Participant: Yes New Discharge Prescriptions: No Action Sertraline [Zoloft] 25 mg PO HS Lisinopril 20 mg PO HS Cholecalciferol [Vitamin D3 (25 Mcg = 1000 Iu)] 50 mcg PO HS Anastrozole [Arimidex] 1 mg PO HS Acetaminophen [Tylenol Extra Strength] 1,000 mg PO DIRECTED PRN PRN Reason: Pain Discharge Medication List Lisinopril 20 mg PO HS 12/06/18 [History] Sertraline [Zoloft] 25 mg PO HS 12/06/18 [History] Anastrozole [Arimidex] 1 mg PO HS 08/31/19 [History] Cholecalciferol [Vitamin D3 (25 Mcg = 1000 Iu)] 50 mcg PO HS 08/31/19 [History] Acetaminophen [Tylenol Extra Strength] 1,000 mg PO DIRECTED PRN 01/03/20 [History] Follow up Appointment(s)/Referral(s): Simran Shirley MD [STAFF PHYSICIAN] - 1 Week Activity/Diet/Wound Care/Special Instructions: do not drive until seen by Dr. Butler wear surgical bra at all times may shower after 48 hours Discharge Disposition: HOME SELF-CARE
[2020-02-05] MEDS ORDERED: PROMETHAZINE INJ 3.25 MG in SODIUM CHLORIDE 0.9% 50 ML IVPB ONE (14:45)
[2020-02-05 15:16] VITALS: PULSE 64
[2020-02-05 15:47] VITALS: BP 141/84; RESP 16
== END 2020-02-05 16:35 | disposition home or self-care (01) ==
LOC: OR 08:09
PROVIDERS: ATTEND Surgery
DX: N65.1 Disproportion of reconstructed breast (principal); N60.12 Diffuse cystic mastopathy of left breast; N60.22 Fibroadenosis of left breast; I10 Essential (primary) hypertension; M19.90 Unspecified osteoarthritis, unspecified site; F32.9 Major depressive disorder, single episode, unspecified; Z85.3 Personal history of malignant neoplasm of breast; Z90.11 Acquired absence of right breast and nipple; Z92.3 Personal history of irradiation; Z88.1 Allergy status to other antibiotic agents; Z91.048 Other nonmedicinal substance allergy status; Z91.040 Latex allergy status; Z88.8 Allergy status to other drugs, medicaments and biological substances; Z90.49 Acquired absence of other specified parts of digestive tract; Z98.890 Other specified postprocedural states; Z92.21 Personal history of antineoplastic chemotherapy; Z80.1 Family history of malignant neoplasm of trachea, bronchus and lung; Z80.8 Family history of malignant neoplasm of other organs or systems
CPT/HCPCS: 88305; 19316; J2250; J1644; J1100; J2550; J2405; J0690; J2001; J3010; J2370; J0330; J2704; J1170

== ENCOUNTER → 2020-02-14 | Outpatient (CLI) | payer OTHER ==
[2020-02-14 14:41] VITALS: BP 114/79; PULSE 50; RESP 18; TEMP 97.8
--- NOTE | 2020-02-14 14:57 | P.PN ---
Progress Note - Text Progress Note Date: 02/14/20 Leslye is a 65-year-old white female status post left breast reduction surgery for a symmetry procedure related to right breast surgery for cancer. This was performed on 720 120. Pathology was benign. Postoperatively the patient is doing well. Physical exam: Lungs: Clear Heart: Regular rate and rhythm Incisions: Clean and dry Impression: 1. Patient status post left breast reduction for symmetry procedure healing well no evidence of infection 2. Right breast partial mastectomy stage 3A/patient received radiation therapy/patient received chemotherapy/is presently taking hormonal therapy Plan: 1. Sutures removed today 2. Follow-up in 2 weeks CC: Dr. Lopez
== END | disposition home or self-care (01) ==
LOC: WWCWWP 14:29
PROVIDERS: ATTEND Surgery
DX: Z53.9 Procedure and treatment not carried out, unspecified reason (principal)

== ENCOUNTER → 2020-02-19 | Outpatient (CLI) | payer OTHER ==
[2020-02-19 12:22] VITALS: BP 124/85; PULSE 83; RESP 16; TEMP 98.2
--- NOTE | 2020-02-19 13:44 | P.PN ---
Progress Note - Text Progress Note Date: 02/19/20 Leslye is a 65-year-old white female status post left breast reduction surgery for a symmetry procedure related to right [place] [address]. Pathology was benign. Postoperatively the patient has done well, however concern because her Steri-Strips will come off and wished to have the incision evaluated. She is not complaining of any fever or chills. She is not complaining of any pain. She has no complaints of any redness or erythema of the incisions. Physical exam: Incision is clean and dry and well-healed. There is no evidence of any infection. We have reassured her secondary to the fact that some of the Steri- Strips have come off. We've told her that the vessel, off in the near future. Impression: 1. Sinclair pattern reduction mastopexy left breast secondary to asymmetry from right breast surgery for cancer 2. Patient is very satisfied with the outcome. Plan: 1. Follow-up Dr. Butler 2. Follow-up radiation oncology 2. Follow-up medical oncology CC: DR. Lopez
== END | disposition home or self-care (01) ==
LOC: WWCWWP 11:58
PROVIDERS: ATTEND Surgery
DX: Z53.9 Procedure and treatment not carried out, unspecified reason (principal)

== ENCOUNTER → 2020-03-06 | Outpatient (CLI) | payer OTHER ==
--- NOTE | 2020-03-06 16:32 | P.PN ---
Subjective Progress Note Date: 03/06/20 Principal diagnosis: Right breast invasive ductal carcinoma Leslye is a 65-year-old white female who initially presented for nodule in her right breast. The nodule had been present for several years and he grown in size. A biopsy was done at that time elsewhere and was benign. [place] [address] which revealed a 4.3 x 3.2 cm spiculated mass in the right breast. Ultrasound revealed multiple lesions in the right breast. The first was a 4.8 x 3.5 cm irregular lesion at 12:00 for which biopsy was recommended 2. 2.6 x 1 cm lesion at 5:00 for which biopsy was recommended 3. 2.7 x 2 cm lesion at 8:00 for which biopsy was recommended 4. Lesion at 10:00 for biopsy was recommended Additionally there were noted to be questionable lymph nodes Biopsy of the following areas revealed: 1. 12:00 ultrasound-guided core biopsy invasive high-grade ductal carcinoma; ER/FL+, Her2- 2. 5:00 benign breast tissue 3:00 metastatic carcinoma consistent with ductal carcinoma replacing the lymph node 4. 8 o'clock position lesion was not biopsied Patient had preoperative chemotherapy with 4 doses of before meals and then 12 doses of Taxol. She had good response of the tumor. She subsequently underwent a right breast lumpectomy via Sinclair pattern reduction mastopexy incision. She then underwent radiation therapy. She completed radiation in November 2019. She has been on Arimidex since August 2019. Upon completion of radiation therapy there is noted to be marked asymmetry of the breast. She opted for a reduction mastopexy of the left side secondary to the asymmetry. This was performed on 720 120. Postprocedure she is doing well without any complaints related to this. Patient is very satisfied with the results Physical exam: Lungs: Clear Heart: Regular rate and rhythm Incision clean and dry, healing well, small amount of granulation tissue at the inverted T base of the incision which is healing well Impression: 1. No evidence of recurring cancer right breast 2. Reduction mastopexy incisions healing well left breast 3. Continue Femara 4. Follow-up radiation oncology 5. Follow-up medical oncology 6. Follow-up here 4 months CC: Michelle Wakefield NP
[2020-03-06 16:36] VITALS: BP 130/83; PULSE 74; RESP 18; TEMP 98.3
== END | disposition home or self-care (01) ==
LOC: WWCWWP 15:48
PROVIDERS: ATTEND Surgery
DX: Z53.9 Procedure and treatment not carried out, unspecified reason (principal)

== ENCOUNTER → 2020-06-26 | Outpatient (CLI) | payer MEDICARE ==
[2020-06-26 09:27] VITALS: BP 129/85; PULSE 84; RESP 16; TEMP 98
--- NOTE | 2020-06-26 09:34 | P.PN ---
Subjective Progress Note Date: 06/26/20 Principal diagnosis: stage II right breast cancer/ [id number]/SC+Her2- Leslye is a 65-year-old white female who initially presented for nodule in her right breast. The nodule had been present for several years and had grown in size. A biopsy was done at that time elsewhere and was benign. [place] [address] which revealed a 4.3 x 3.2 cm spiculated mass in the right breast. Ultrasound revealed multiple lesions in the right breast. The first was a 4.8 x 3.5 cm irregular lesion at 12:00 for which biopsy was recommended 2. 2.6 x 1 cm lesion at 5:00 for which biopsy was recommended 3. 2.7 x 2 cm lesion at 8:00 for which biopsy was recommended 4. Lesion at 10:00 for biopsy was recommended Additionally there were noted to be questionable lymph nodes Biopsy of the following areas revealed: 1. 12:00 ultrasound-guided core biopsy invasive high-grade ductal carcinoma; ER/SC+, Her2- 2. 5:00 benign breast tissue 3:00 metastatic carcinoma consistent with ductal carcinoma replacing the lymph node 4. 8 o'clock position lesion was not biopsied Patient had preoperative chemotherapy with 4 doses Adramycin/cytoxin and then 12 doses of Taxol. She had good response of the tumor. She subsequently underwent a right breast lumpectomy via Sinclair pattern reduction mastopexy incision. She then underwent radiation therapy. She completed radiation in November 2019. She has been on Arimidex since August 2019. Upon completion of radiation therapy there is noted to be marked asymmetry of the breast. She opted for a reduction mastopexy of the left side [place] [address]. Postprocedure she is doing well without any complaints related to this. She went on a research study of an aspirin a day, but she stopped as this was causing stomach pain. She is now on Prilosec daily. Family history: 1. Paternal grandmother: Question breast cancer 2. Paternal aunt: Lung cancer 2. Maternal aunt: Brain cancer Wall history: T: 10 . 28, breast-fed: No Menopause: 50 control pills: 5 years Hormones: Negative Past surgical history: 1. Gallbladder 2. D&C Medical history: Hypertension Depression Arthritis Social history: Smoking: Negative Alcohol: Negative Drugs: Negative Review of systems: Constitutional: Night sweats HEENT: Negative Breasts: As per HPI Cardiovascular: Hypertension Respiratory: Negative GI: Negative : Negative Musculoskeletal: Arthritis Integument: Intermittent folliculitis Neurologic: Negative Psychiatric: Depression Endocrine: Fatigue Hematologic: Patient was taking aspirin but stopped secondary to stomach pain Objective - Exam BMI 31.3 - Constitutional General appearance: Present: average body habitus - EENT Eyes: Present: EOMI ENT: Present: hearing grossly normal - Neck Neck: Present: normal ROM - Respiratory Respiratory: bilateral: CTA - Cardiovascular Rhythm: regular Heart sounds: normal: S1, S2 - Gastrointestinal General gastrointestinal: Present: normal bowel sounds, soft - Integumentary Integumentary: Present: normal turgor - Musculoskeletal Musculoskeletal: Present: gait normal - Psychiatric Psychiatric: Present: A&O x's 3, appropriate affect, intact judgment & insight - Additional findings Additional findings: breast exam: BRA: has gone from 44F to a 44D inspection: left breast slightly larger than right, incisions well healed palpation: right breast: Multi-positional exam fibrocystic changes, slight increased fullness in the 12 o'clock position felt to be related to scar tissue and radiation however would recommend a core biopsy of this area Right axilla: No adenopathy of concern Left breast: Multi-positional exam fibrocystic changes no dominant masses or nodules of concern Left axilla: No adenopathy of concern Assessment and Plan Assessment: Impression HTN depression arthritis Fibrocystic changes bilateral breast fullness in the 12 o'clock position right breast was recommended for biopsy to rule out any recurrent disease Plan: 1. Core biopsy 12 o'clock position right breast 2. Bilateral mammogram in January 2021 3. Continue intermittent attacks 4. Continue follow-up with medical and radiation oncology 5. Continue follow with Dr. Lopez Cc: Dr. Jessica Christianson encounter 20 minutes, > 50% time in planning and counselling
== END | disposition home or self-care (01) ==
LOC: WWCWWP 09:09
PROVIDERS: ATTEND Surgery
DX: Z53.9 Procedure and treatment not carried out, unspecified reason (principal)

== ENCOUNTER → 2020-08-07 | Outpatient (CLI) | payer MEDICARE ==
[2020-08-07 09:07] VITALS: BP 133/90; PULSE 94; RESP 16; TEMP 97.9
--- NOTE | 2020-08-07 09:22 | P.PCN ---
Date of Procedure: 08/07/20 Preoperative Diagnosis: fullness 12 oclock area of right breast Postoperative Diagnosis: same Procedure(s) Performed: Core biopsy of right breast. Anesthesia: local Surgeon: Simran Shirley Pathology: other (breast tissue) Disposition: same day Indications for Procedure: Fullness 12 o'clock position right breast Operative Findings: dense breast tissue Description of Procedure: There is an area of fullness in the 12:00 area of the right breast. This is most likely related to scar tissue and or fibrosis from prior surgery and treatment. The area was prepped using Betadine. 1% lidocaine was used to anesthetize the area of concern approximately 3 mL. A small iris was made in the skin using an 11 blade. An 18-gauge Bard core biopsy needle was inserted into the area of concern. 3 samples were obtained. The patient tolerated the procedure in stable condition. The specimen was sent to pathology. Patient will follow next week for results.
== END | disposition home or self-care (01) ==
LOC: WWCWWP 08:43
PROVIDERS: ATTEND Surgery
DX: N64.59 Other signs and symptoms in breast (principal)
CPT/HCPCS: 88305; 88341; 88342

== ENCOUNTER → 2020-08-15 | Outpatient (CLI) | payer MEDICARE ==
[2020-08-15 14:36] VITALS: BP 108/75; PULSE 109; RESP 16; TEMP 97.8
--- NOTE | 2020-08-15 15:08 | P.PN ---
Subjective Progress Note Date: 08/15/20 Principal diagnosis: right breast cancer/ stage II stage II right breast cancer/ [id number]/WI+Her2- Leslye is a 65-year-old white female who initially presented for nodule in her right breast. The nodule had been present for several years and had grown in size. A biopsy was done at that time elsewhere and was benign. [place] [address] which revealed a 4.3 x 3.2 cm spiculated mass in the right breast. Ultrasound revealed multiple lesions in the right breast. The first was a 4.8 x 3.5 cm irregular lesion at 12:00 for which biopsy was recommended 2. 2.6 x 1 cm lesion at 5:00 for which biopsy was recommended 3. 2.7 x 2 cm lesion at 8:00 for which biopsy was recommended 4. Lesion at 10:00 for biopsy was recommended Additionally there were noted to be questionable lymph nodes Biopsy of the following areas revealed: 1. 12:00 ultrasound-guided core biopsy invasive high-grade ductal carcinoma; ER/WI+, Her2- 2. 5:00 benign breast tissue 3:00 metastatic carcinoma consistent with ductal carcinoma replacing the lymph node 4. 8 o'clock position lesion was not biopsied Patient had preoperative chemotherapy with 4 doses Adramycin/cytoxin and then 12 doses of Taxol. She had good response of the tumor. She subsequently underwent a right breast lumpectomy via Sinclair pattern reduction mastopexy incision. She then underwent radiation therapy. She completed radiation in November 2019. She has been on Arimidex since August 2019. Upon completion of radiation therapy there is noted to be marked asymmetry of the breast. She opted for a reduction mastopexy of the left side [place] [id number]. Postprocedure she is doing well without any complaints related to this. She went on a research study of an aspirin a day, but she stopped as this was causing stomach pain. She is now on Prilosec daily. The patient had a physical examination on 298486 which revealed some slight fullness in the 12 o'clock position of the right breast this was most likely felt to be scar and radiation change. However it was recommended a core biopsy [place] performed[place] [id number]. A minute focus of atypia suspicious for residual/recurrent invasive carcinoma was identified. This was in a background of scar and fat necrosis with radiation therapy changes. The patient's last bilateral mammogram was in January 2020 and was felt to be postoperative changes in the right breast. I discussed this with the patient and at this time we are going to perform a bilateral mammogram as well as an ultrasound of the right breast. I would also recommend that B presented at tumor board. Depending on the results of the mammogram and findings at tumor board we will determine how we would further evaluate the area of concern. Case with radiology and they do not feel an MRI would be beneficial secondary to inflammation related to the recent core biopsy. Family history: 1. Paternal grandmother: Question breast cancer 2. Paternal aunt: Lung cancer 2. Maternal aunt: Brain cancer Wall history: T: 10 . 28, breast-fed: No 120 121. Pathology revealed a minute atypical focus suspicious for residual/recurrent invasive carcinoma in a background of scar and fat necrosis. Her last bilateral mammogram was in January 2020 Menopause: 50 control pills: 5 years Hormones: Negative Past surgical history: 1. Gallbladder 2. D&C Medical history: Hypertension Depression Arthritis Social history: Smoking: Negative Alcohol: Negative Drugs: Negative Review of systems: Constitutional: Night sweats HEENT: Negative Breasts: As per HPI Cardiovascular: Hypertension Respiratory: Negative GI: Negative : Negative Musculoskeletal: Arthritis Integument: Intermittent folliculitis Neurologic: Negative Psychiatric: Depression Endocrine: Fatigue Hematologic: Patient was taking aspirin but stopped secondary to stomach pain Objective - Vital Signs Vital signs: Vital Signs Temp 97.8 F 08/15/20 14:33 Pulse 109 H 08/15/20 14:33 Resp 16 08/15/20 14:33 BP 108/75 08/15/20 14:33 Pulse Ox 96 08/15/20 14:33 Intake & Output 08/14/20 08/15/20 08/15/20 18:59 06:59 18:59 Weight 77.564 kg - Exam BMI 31.3 - Constitutional General appearance: Present: obese - EENT ENT: Present: hearing grossly normal - Neck Neck: Present: normal ROM - Respiratory Respiratory: bilateral: CTA - Cardiovascular Heart sounds: normal: S1, S2 - Musculoskeletal Musculoskeletal: Present: gait normal - Psychiatric Psychiatric: Present: A&O x's 3, appropriate affect, intact judgment & insight - Additional findings Additional findings: Breast examination: Right breast: Area of core biopsies clean and dry There remains some palpable fullness in the 12:00 region No evidence of infection or hematoma Assessment and Plan Assessment: Impression: Hypertension Depression Arthritis Fibrocystic changes bilateral breast Less than 12 o'clock position core biopsy revealed atypia Plan: Bilateral mammogram and ultrasound of the right breast Presentation of case at tumor board We will determine how we will get further tissue with a best corrected approach Patient to follow up after her mammogram and ultrasound CC: Dr. Jessica Del Real encounter 15 minutes time spent in review with radiology, physical exam, and counselling
== END | disposition home or self-care (01) ==
LOC: WWCWWP 14:13
PROVIDERS: ATTEND Surgery
DX: Z53.9 Procedure and treatment not carried out, unspecified reason (principal)

== ENCOUNTER → 2020-08-26 | Outpatient (CLI) | payer MEDICARE ==
--- NOTE | 2020-08-27 09:57 | MM ---
Reason for exam: follow-up at short interval from prior study. Last mammogram was performed 7 months ago. History: Patient is postmenopausal and has history of breast cancer at age 64. Family history of breast cancer in paternal grandmother at age 50. Malignant US breast surgical specimen RT of the right breast, October 09, 2019. Malignant US breast localization RT of the right breast, October 09, 2019. Malignant MG pre op loc each addl RT of the right breast, August 14, 2019. Malignant MG pre op needle loc RT of the right breast, August 14, 2019. Mastectomy of the right breast, August 14, 2019. Reduction of the right breast, July 2019. Lumpectomy of the right breast, July 2019. Benign US biopsy breast VAD RT of the right breast, February 08, 2019. Malignant US breast needle core addl RT of the right breast, December 21, 2018. Malignant US biopsy breast VAD RT of the right breast, December 21, 2018. Malignant US biopsy breast add'l VAD RT of the right breast, December 21, 2018. Benign excisional biopsy of the right breast, 2018. Benign excisional biopsy of the right breast, 2017. Chemotherapy. Radiation therapy. Taking other hormone for 5 months. Physical Findings: Nurse Summary: 2.5 x 2.5cm nodule in the right breast at 12 o'clock (nurse ts). MG 3D Diag Mammo W/Cad RT CC and MLO view(s) were taken of the right breast. Prior study comparison: January 18, 2020, bilateral MG 3d diag mammo w/cad JELENA. October 09, 2019, right breast MG diagnostic mammo RT wo CAD. Finding: There is architectural distortion and a 40 mm obscured round mass in the middle position of the right breast consistent with known treatment changes. Previous mammotome biopsy in the right breast x 2. These results were verbally communicated with the patient and result sheet given to the patient on 08/26/20. ASSESSMENT: Probably benign, BI-RAD 3 RECOMMENDATION: Follow-up diagnostic mammogram of the right breast in 6 months.
--- NOTE | 2020-08-27 10:00 | USB ---
Reason for exam: follow-up at short interval from prior study. History: Patient is postmenopausal and has history of breast cancer at age 64. Family history of breast cancer in paternal grandmother at age 50. Malignant US breast surgical specimen RT of the right breast, October 09, 2019. Malignant US breast localization RT of the right breast, October 09, 2019. Malignant MG pre op loc each addl RT of the right breast, August 14, 2019. Malignant MG pre op needle loc RT of the right breast, August 14, 2019. Mastectomy of the right breast, August 14, 2019. Reduction of the right breast, July 2019. Lumpectomy of the right breast, July 2019. Benign US biopsy breast VAD RT of the right breast, February 08, 2019. Malignant US breast needle core addl RT of the right breast, December 21, 2018. Malignant US biopsy breast VAD RT of the right breast, December 21, 2018. Malignant US biopsy breast add'l VAD RT of the right breast, December 21, 2018. Benign excisional biopsy of the right breast, 2018. Benign excisional biopsy of the right breast, 2017. Chemotherapy. Radiation therapy. Taking other hormone for 5 months. US Breast RT Right complete breast ultrasound includes all four quadrants, the retroareolar region and axilla. Finding demonstrates a 5.7 x 2.6 x 5.8cm irregular, cystic, mixed lesion at 1 o'clock BB, nonspecific irregular fluid collection, questionable post treatment and a 2.2 x 1.7 x 2.3cm irregular, cystic, mixed lesion at 11 o'clock, nonspecific irregular fluid collection, right axilla resumed treatment change. Presumed post treatment changes given history of recent treatment. These results were verbally communicated with the patient and result sheet given to the patient on 08/26/20. ASSESSMENT: Probably benign, BI-RAD 3 RECOMMENDATION: Follow-up diagnostic mammogram and ultrasound of the right breast in 6 months.
== END | disposition home or self-care (01) ==
LOC: RADMAMWWP 14:10
PROVIDERS: ATTEND Surgery
DX: Z08 Encounter for follow-up examination after completed treatment for malignant neoplasm (principal); Z85.3 Personal history of malignant neoplasm of breast
CPT/HCPCS: 77065; 76641; G0279; 77061

== ENCOUNTER → 2020-09-12 | Outpatient (CLI) | payer MEDICARE ==
--- NOTE | 2020-09-12 13:45 | CT ---
EXAMINATION TYPE: CT ChestAbdPelvis w con DATE OF EXAM: 09/12/2020 COMPARISON: 01/15/2019 HISTORY: Breast CA CT DLP: 1225.9 mGycm CONTRAST: CT scan of the chest, abdomen and pelvis is performed with Oral Contrast and with IV Contrast, patien t injected with 100 mL of Isovue 300. CT Chest: LUNGS: Post radiation therapy changes right upper lobe. No evidence for pulmonary mass or nodule. No pulmonary nodule or mass is detected. No pleural effusion or CT evidence of interstitial lung diseas e. MEDIASTINUM: Thoracic aorta is of normal caliber. The heart is not enlarged. No evidence for media stinal mass or adenopathy. HILAR STRUCTURES: No evidence for mass. No hilar adenopathy is appreciated. OTHER: Postoperative seroma right breast measures 3.[address] ABDOMEN AND PELVIS FINDINGS: LIVER/GB: The gallbladder is surgically absent. No space occupying hepatic lesion. Biliary tree is of normal caliber. PANCREAS: No inflammation. No distinct mass. SPLEEN: No splenic enlargement. No lesion seen. ADRENALS: No nodule. No thickening. KIDNEYS/BLADDER: No hydronephrosis. No nephrolithiasis. No distinct renal mass. BOWEL: Small sliding-type hiatal hernia. Normal appendix. Normal bowel caliber. No inflammation. GENITAL ORGANS: No gross abnormality. LYMPH NODES: No greater than 1cm abdominal or pelvic lymph nodes are appreciated. AORTA: No significant abnormality. OSSEOUS STRUCTURES: No significant abnormality is seen. OTHER: No significant additional abnormality is seen. IMPRESSION: 1. Postoperative changes right sided lumpectomy and radiation therapy. Radiation therapy changes to t he right upper lobe. No CT evidence to suggest metastatic disease.
--- NOTE | 2020-09-12 14:20 | NM ---
EXAMINATION TYPE: NM bone scan whole body DATE OF EXAM: 09/12/2020 COMPARISON: CT same date HISTORY: Breast carcinoma Delayed whole-body scanning was performed following the injection of 26.3 mCi Tc 99m MDP. Images acq uired 3 hours post injection. FINDINGS: Soft tissue uptake is normal with exception of uptake within the right breast may be due to treatment changes. Uptake within the feet, ankles, knees, wrists, shoulders is likely degenerative. Mild spina l uptake is likely degenerative. No areas of abnormal increased or decreased uptake to suggest metast atic disease. IMPRESSION: No metastatic disease is evident.
== END | disposition home or self-care (01) ==
LOC: RADNMMAIN 09:51
PROVIDERS: ATTEND Internal Medicine Hematology & Oncology
DX: C50.811 Malignant neoplasm of overlapping sites of right female breast (principal); Z51.0 Encounter for antineoplastic radiation therapy; Z98.890 Other specified postprocedural states; Z88.1 Allergy status to other antibiotic agents; Z88.8 Allergy status to other drugs, medicaments and biological substances
CPT/HCPCS: 82565; 84520; 71260; 74177; 36415; 78306; A9503; Q9967 ×2

== ENCOUNTER → 2020-10-02 | Outpatient (CLI) | payer MEDICARE ==
[2020-10-02 11:27] VITALS: BP 132/84; PULSE 102; RESP 18; TEMP 97.8
--- NOTE | 2020-10-02 12:23 | P.PN ---
Subjective Progress Note Date: 10/02/20 Principal diagnosis: stage II right breast cancer stage II right breast cancer/ [id number]/NJ+Her2- Leslye is a 65-year-old white female who initially presented for nodule in her right breast. The nodule had been present for several years and had grown in size. A biopsy was done at that time elsewhere and was benign. [place] [address] which revealed a 4.3 x 3.2 cm spiculated mass in the right breast. Ultrasound revealed multiple lesions in the right breast. The first was a 4.8 x 3.5 cm irregular lesion at 12:00 for which biopsy was recommended 2. 2.6 x 1 cm lesion at 5:00 for which biopsy was recommended 3. 2.7 x 2 cm lesion at 8:00 for which biopsy was recommended 4. Lesion at 10:00 for biopsy was recommended Additionally there were noted to be questionable lymph nodes Biopsy of the following areas revealed: 1. 12:00 ultrasound-guided core biopsy invasive high-grade ductal carcinoma; ER/NJ+, Her2- 2. 5:00 benign breast tissue 3:00 metastatic carcinoma consistent with ductal carcinoma replacing the lymph node 4. 8 o'clock position lesion was not biopsied Patient had preoperative chemotherapy with 4 doses Adramycin/cytoxin and then 12 doses of Taxol. She had good response of the tumor. She subsequently underwent a right breast lumpectomy via Sinclair pattern reduction mastopexy incision. She then underwent radiation therapy. She completed radiation in November 2019. She has been on Arimidex since August 2019. Upon completion of radiation therapy there is noted to be marked asymmetry of the breast. She opted for a reduction mastopexy of the left side [place] [address]. Postprocedure she is doing well without any complaints related to this. She went on a research study of an aspirin a day, but she stopped as this was causing stomach pain. She is now on Prilosec daily. On her appointment of 06-26-20 she was noted to have some fullness in the 12 o'clock position of the right breast. A core biopsy was recommended. This was performed on 120 121. The patient's spine is were sent out for a second opinion which returned as minute atypical focus suspicious for residual invasive carcinoma. Second opinion reveal [facility] was residual/recurrent invasive carcinoma. The patient underwent a computed tomography scan chest abdomen and pelvis on 1. This was negative for any metastatic disease. She also had a bone scan performed on the same date which also was negative for metastatic disease. Family history: 1. Paternal grandmother: Question breast cancer 2. Paternal aunt: Lung cancer 2. Maternal aunt: Brain cancer Wall history: T: 10 . 28, breast-fed: No Menopause: 50 control pills: 5 years Hormones: Negative Past surgical history: 1. Gallbladder 2. D&C Medical history: Hypertension Depression Arthritis Social history: Smoking: Negative Alcohol: Negative Drugs: Negative Review of systems: Constitutional: Night sweats HEENT: Negative Breasts: As per HPI Cardiovascular: Hypertension Respiratory: Negative GI: Negative : Negative Musculoskeletal: Arthritis Integument: Intermittent folliculitis Neurologic: Negative Psychiatric: Depression Endocrine: Fatigue Hematologic: Patient was taking aspirin but stopped secondary to stomach pain Objective - Vital Signs Vital signs: Vital Signs Temp 97.8 F 10/02/20 11:24 Pulse 102 H 10/02/20 11:24 Resp 18 10/02/20 11:24 BP 132/84 10/02/20 11:24 Pulse Ox 97 10/02/20 11:24 Intake & Output 10/01/20 10/02/20 10/02/20 18:59 06:59 18:59 Weight 76.204 kg - Exam BMI 30.7 - Constitutional General appearance: Present: average body habitus - EENT Eyes: Present: EOMI ENT: Present: hearing grossly normal - Neck Neck: Present: normal ROM - Respiratory Respiratory: bilateral: CTA - Cardiovascular Rhythm: regular Heart sounds: normal: S1, S2 - Gastrointestinal General gastrointestinal: Present: soft - Integumentary Integumentary: Present: normal turgor - Musculoskeletal Musculoskeletal: Present: gait normal - Psychiatric Psychiatric: Present: A&O x's 3, appropriate affect, intact judgment & insight - Additional findings Additional findings: breast exam: BRA: 44D inspection: Patient has postop changes related to bilateral surgery Palpation: Right breast: Postop and radiation changes, fullness remains in the 12 o'clock position at the area where core biopsy was performed Right axilla: No adenopathy of concern Fungal infection under breast Left breast: Postoperative changes, no dominant mass or not his of concern Left axilla: No adenopathy of concern fungal infection under her left breast Assessment and Plan Assessment: Impression: 1. Recurrent multifocal right breast cancer status post lumpectomy and radiation therapy 2. Hypertension 3. Depression 4. Arthritis 5. Recurrent cancer right breast 6. Patient recently seen by medical oncology metastatic workup negative 7. Fungal infection under both breast Plan: 1. Bilateral mastectomy, with possible bilateral V-Y advancement flaps for the axillary tissue 2. Medical clearance 3. Nystatin to treat fungal infection under both breasts Risk and benefits of the procedure were discussed with the patient. She was given the option of attempted MRI needle localization and excision of the area of concern in the right breast however she does not wish to pursue this. Additionally she was given the option of seeing a plastic surgeon for immediate reconstruction and she does not wish to do this. She wishes bilateral mastectomy she would be very asymmetric otherwise. Risks include but are not limited to bleeding, infection, reaction to the anesthetic. Additionally secondary to the fact that she has had radiation and a Sinclair pattern reduction mammoplasty on the right to may be increased risk of wound healing. She understands this and wishes to proceed. CC: Dr. Lopez encounter 45 minutes
== END ==
LOC: WWCWWP 11:17
PROVIDERS: ATTEND Surgery
DX: C50.911 Malignant neoplasm of unspecified site of right female breast (principal); I10 Essential (primary) hypertension; F32.9 Major depressive disorder, single episode, unspecified; M19.90 Unspecified osteoarthritis, unspecified site; B36.9 Superficial mycosis, unspecified; Z98.890 Other specified postprocedural states

== ENCOUNTER 2020-10-28 06:43 | Day surgery (SDC) | payer MEDICARE ==
[2020-10-23 10:23] VITALS: BMI 31.1
[~2020-10-28 06:43] MED LIST changes: -DEXAMETHASONE SOD PHOSPHATE 10 MG/ML 1 ML VIAL IV ONE; +DEXAMETHASONE SOD PHOSPHATE 4 MG/ML 1 ML VIAL IV ONE; -HEPARIN SODIUM,PORCINE 5,000 UNIT/ML 1 ML VIAL SQ ONE; +HEPARIN SODIUM,PORCINE/PF 5,000 UNIT/0.5 ML SYRINGE SQ PRN; -HYDROmorphone 0.5 MG/0.5 ML SYRINGE IVP PRN; +MIDAZOLAM 2 MG/2 ML VIAL IV PRN
[2020-10-28] MEDS ORDERED: HYDROmorphone 0.5 MG/0.5 ML SYRINGE IVP PRN (07:00)
[2020-10-28 07:49] LABS: Basophils % (A) 0 %; Eosinophils % (A) 1 %; HCT 37.5 % (34.0-46.0); HGB 13.2 gm/dL (11.4-16.0); Lymphocytes # (A) 0.7 k/uL (1.0-4.8); Lymphocytes % (A) 15 %; MCH 31.1 pg (25.0-35.0); MCHC 35.2 g/dL (31.0-37.0); MCV 88.4 fL (80.0-100.0); Mean Platelet Volume 8.1; Monocytes # (A) 0.3 k/uL (0-1.0); Monocytes % (A) 6 %; Neutrophils # (A) 3.5 k/uL (1.3-7.7); Neutrophils % (A) 76 %; Platelet Count 219 k/uL (150-450); RBC 4.25 m/uL (3.80-5.40); RDW 13.6 % (11.5-15.5); WBC 4.6 k/uL (3.8-10.6)
[2020-10-28 08:01] LABS: Albumin 3.8 g/dL (3.5-5.0); Calcium 9.2 mg/dL (8.4-10.2); Potassium 4.1 mmol/L (3.5-5.1); Total Bilirubin 0.4 mg/dL (0.2-1.3); Total Protein 6.5 g/dL (6.3-8.2)
[2020-10-28] MEDS ORDERED: PHENYLEPHRINE-0.9% NACL SYG 1,000 MCG/10 ML SYRINGE ONE (08:19)
[2020-10-28] MEDS ORDERED: LIDOCAINE 1% INJ 10MG/ML (20 ML MDV) ONE (08:19)
[2020-10-28] MEDS ORDERED: fentaNYL (PF) 50 MCG/ML 2 ML AMP ONE (08:19)
[2020-10-28] MEDS ORDERED: SUCCINYLCHOLINE CHLORIDE 100 MG/5 ML SYR IV ONE (08:19)
[2020-10-28] MEDS ORDERED: MIDAZOLAM 2 MG/2 ML VIAL ONE (08:19)
[2020-10-28] MEDS ORDERED: PROPOFOL 10 MG/ML 20 ML VIAL IV ONE (08:19)
[2020-10-28] MEDS ORDERED: SODIUM CHLORIDE 0.9% 50 ML with ceFAZolin 2,000 MG IV ONE ×2 (08:25)
--- NOTE | 2020-10-28 11:59 | P.OP ---
Date of Procedure: 10/28/20 Preoperative Diagnosis: Recurrent right breast cancer Postoperative Diagnosis: Same Procedure(s) Performed: Bilateral mastectomy Anesthesia: POLLY Surgeon: Simran Shirley Estimated Blood Loss (ml): 25 IV fluids (ml): 400 Pathology: other (Bilateral breast) Condition: stable Disposition: floor Indications for Procedure: Recurrent right breast cancer Operative Findings: radiation changes right breast, fibrofatty left breast Description of Procedure: Pricila is a 65-year-old white female status post right breast lumpectomy and radiation therapy via a reduction mammoplasty approach. She underwent a symmetry left breast reduction mammoplasty following this. She was noted to have some fullness in the right breast and a core biopsy was performed which was positive for recurrent right breast cancer. Metastatic workup was negative. After discussion the patient shows a bilateral mastectomy. The patient was brought to the operating room and following induction of anesthesia both breasts were prepped and draped in a sterile fashion. The left breast was approached initially. Skin markings were made for the superior and inferior flaps. These were developed using electrocautery device. The breast was removed from medial to lateral using electrocautery device as well as the Harmonic scalpel. Several vessels were identified and suture ligated. The breast tissue was removed. The wound was well irrigated. The breast was marked for orientation. A short suture was placed superior and a long suture was placed laterally. 2 OLINDA drains were placed. Surgicel in powder form was placed. The drains were secured using a nylon suture. The subcutaneous tissue was closed using a 3-0 Vicryl suture. The skin was closed with natasha. The right side was then approached. A marking pen was used to raphael the flaps. The superior and inferior flaps were developed. The tumor bed was identified by natasha which had been placed, and this area was clearly removed from the lateral aspect of the chest wall. The breast was removed from medial to lateral being careful to maintain hemostasis using electrocautery device as well as the Harmonic scalpel and suture ligation as necessary. The wound was well irrigated. Surgicel in powder form was placed. 2 OLINDA drains were placed. They was secured using a nylon suture. Breast was marked for orientation. A short suture was placed s uperiorly and a long suture was placed laterally. The deep tissues were closed using 3-0 Vicryl suture. The skin was closed using natasha. The patient tolerated the procedure in stable condition. All instrument and sponge counts were correct at the end of the case.
[2020-10-28] MEDS ORDERED: HYDROmorphone 1 MG/ML 1 ML SYRINGE IVP PRN (12:01)
[2020-10-28] MEDS ORDERED: NALOXONE 0.4 MG/ML 1 ML VIAL IV PRN (12:01)
[2020-10-28] MEDS ORDERED: ONDANSETRON 4 MG/2 ML VIAL IVP PRN (12:01)
[2020-10-28] MEDS ORDERED: SODIUM CHLORIDE 0.9% 1,000 ML IV SCH (12:15)
[2020-10-28] MEDS ORDERED: LACTATED RINGERS 1,000 ML IV ONE (12:37)
[2020-10-28] MEDS: DEXTROSE 5%-0.45% NACL 1,000 ML IV SCH (14:26)
[2020-10-28] MEDS: HEPARIN SODIUM,PORCINE/PF 5,000 UNIT/0.5 ML SYRINGE SQ SCH (16:02)
[2020-10-28] MEDS: CALCIUM CARBONATE 500 MG CHEWABLE PO PRN (18:09)
[2020-10-28] MEDS: HYDROcodone/APAP 5-325MG 1 EACH TAB PO PRN (20:26)
[2020-10-29] MEDS: DEXTROSE 5%-0.45% NACL 1,000 ML IV SCH ×2 (00:34→08:08)
[2020-10-29] MEDS: HEPARIN SODIUM,PORCINE/PF 5,000 UNIT/0.5 ML SYRINGE SQ SCH ×3 (00:35→16:04)
[2020-10-29] MEDS: HYDROcodone/APAP 5-325MG 1 EACH TAB PO PRN (06:03)
[2020-10-29 06:19] LABS: Basophils % (A) 0 %; Eosinophils % (A) 0 %; HCT 34.6 % (34.0-46.0); HGB 11.9 gm/dL (11.4-16.0); Lymphocytes % (A) 11 %; MCH 30.7 pg (25.0-35.0); MCHC 34.3 g/dL (31.0-37.0); MCV 89.4 fL (80.0-100.0); Mean Platelet Volume 8.3; Monocytes # (A) 0.5 k/uL (0-1.0); Monocytes % (A) 6 %; Neutrophils # (A) 6.9 k/uL (1.3-7.7); Neutrophils % (A) 81 %; Platelet Count 186 k/uL (150-450); RBC 3.87 m/uL (3.80-5.40); RDW 13.6 % (11.5-15.5); WBC 8.5 k/uL (3.8-10.6)
--- NOTE | 2020-10-29 10:08 | P.PN ---
Subjective Progress Note Date: 10/29/20 Principal diagnosis: Postop day #1 bilateral mastectomy Leslye is a 65-year-old white female status post bilateral mastectomy postop day #1. She is doing well, however is feeling fatigued. She has had some mild incisional discomfort. Objective - Vital Signs Vital signs: Vital Signs Temp 97.5 F L 10/29/20 08:25 Pulse 73 10/29/20 08:25 Resp 16 10/29/20 08:25 BP 112/62 10/29/20 08:25 Pulse Ox 95 10/29/20 08:25 Intake & Output 10/28/20 10/29/20 10/29/20 18:59 06:59 18:59 Intake Total 1190 120 Output Total 541 104 Balance 649 16 Weight 78.7 kg Intake: IV 1100 Oral 90 120 Output: Drainage 66 104 1 3 10 2 20 26 3 38 48 4 5 20 Urine 450 Estimated Blood Loss 25 Other: Voiding Method Toilet Toilet # Voids 1 - Exam BMI 31.7 - Constitutional General appearance: Present: cooperative - EENT Eyes: Present: EOMI ENT: Present: hearing grossly normal - Neck Neck: Present: normal ROM - Respiratory Details: Slightly decreased breath sounds bilaterally at the lung bases - Cardiovascular Rhythm: regular Heart sounds: normal: S1, S2 - Integumentary Integumentary Comment(s): Incisions clean and dry bilaterally Total OLINDA output 62 mL OLINDA 1:0 ml OLINDA 2: 22 mL OLINDA #3: 30 mL OLINDA #4: 10 mL All OLINDA output is serous in nature - Labs CBC & Chem 7: 10/29/20 05:49 10/28/20 07:24 Assessment and Plan Assessment: Impression: 1. Patient status post bilateral mastectomy postop day #1 2. Patient complaining of some incisional discomfort and fatigue 3. OLINDA output is serous in nature 4. Hemoglobin 11.9 Plan: 1. Change IV to Hep-Lock 2. Be sure patient is tolerating diet 3. Be sure patient has adequate pain control 4. Plan on discharge home tomorrow
[2020-10-29] MEDS: CALCIUM CARBONATE 500 MG CHEWABLE PO PRN (10:12)
[2020-10-29] MEDS: PANTOPRAZOLE 40 MG TABLET PO SCH (11:33)
[2020-10-29] MEDS ORDERED: ANASTROZOLE 1 MG TAB PO SCH (21:00)
[2020-10-29] MEDS ORDERED: CHOLECALCIFEROL 25 MCG (1000 IU) TABLET PO SCH (21:00)
[2020-10-29] MEDS ORDERED: lisinopriL 20 MG TAB PO SCH (21:00)
--- NOTE | 2020-10-29 22:10 | P.CONS ---
History of Present Illness - Reason for Consult Consult date: 10/29/20 Medical management Requesting physician: Simran Shirley - Chief Complaint Mastectomy - History of Present Illness Consultation: This is a very pleasant 65-year-old patient of Dr. Lopez. Chronic stable medical conditions include GERD, hypertension, osteoarthritis. Patient had breast cancer 2019 finish chemotherapy in June 2019. Patient had a right breast lumpectomy and radiation therapy while reduction mammoplasty approach. She also underwent a symmetric left breast reduction mammoplasty. She was noted to have some fullness in the right breast and a core biopsy showed recurrent right breast cancer. Metastatic workup was negative. Patient has undergone bilateral mastectomy please as well and double-J drained. No nausea vomiting. Some pain at the operative site. Patient is osteoarthritis in multiple joints. Did tolerate some breakfast this morning. Review of systems: GEN.: Tired EYES: None HEENT: Some scalp hair loss NECK: None RESPIRATORY: None CARDIOVASCULAR: None GASTROINTESTINAL: None GENITOURINARY: None MUSCULOSKELETAL: Joint pains LYMPHATICS: None HEMATOLOGICAL: None PSYCHIATRY: None NEUROLOGICAL: None Past medical history to include: GERD, hypertension, osteoarthritis, breast cancer treated with chemo and radiation. Social history: Lives with her daughter. No history of smoking or alcohol. Family history: Reviewed, noncontributory to presentation Physical examination: VITAL SIGNS: 97.5, 73, 16, 112/62, 95% room air GENERAL: BMI 31.7, laying in bed, awake comfortable. EYES: Pupils equal. Conjunctiva normal. HEENT: External appearance of nose and ears normal, oral cavity grossly normal. Female pattern hair loss NECK: JVD not raised; masses not palpable. HEART: First and second heart sounds are normal; no edema. LUNGS: Respiratory rate normal; clear to auscultation. ABDOMEN: Soft, nontender, liver spleen not palpable, no masses palpable. PSYCH: Alert and oriented x3; mood and affect normal. CHEST wall: Dressing across the chest with 2 OLINDA drains MUSCULAR skeletal: Evidence of OA in the hands NEUROLOGICAL: Cranial nerves grossly intact; no facial asymmetry, power and sensation grossly intact. LYMPHATICS: No lymph nodes palpable in the axilla and neck INVESTIGATIONS, reviewed in the clinical context: WBC 8.5 hemoglobin 11.9 platelets 186 potassium 4.1 creatinine 0.85 Assessment and plan: -Bilateral mastectomy for breast cancer. Patient has bilateral OLINDA drain. Dressing in place. Pain control per primary team. -Obesity BMI 31.7 Weight loss measures and follow-up with PCP as an outpatient -GERD Continue with PPI -Essential hypertension Continue with lisinopril -Primary osteoarthritis Tylenol as needed Care was discussed with the patient. Questions answered. Encouraged to sit up in a chair. Thank you Dr. Ines Jurado Past Medical History Past Medical History: Cancer, GERD/Reflux, Hypertension, Osteoarthritis (OA) Additional Past Medical History / Comment(s): RT BREAST CA 01/17/19; finished chemo 06/28/19; HX of RENAL FAILURE R/T DEHYDRATION YEARS AGO; History of Any Multi-Drug Resistant Organisms: None Reported Past Surgical History: Breast Surgery, Cholecystectomy Additional Past Surgical History / Comment(s): D&C; RT BREAST BIOPSIES; port a cath rt chest; rt breast lumpectomy and removal of 9 lymph nodes; rt breast augmentation; port-a-cath removed 12/2019; lt breast reducation 02/05/20; Past Anesthesia/Blood Transfusion Reactions: Postoperative Nausea & Vomiting (PONV) Past Psychological History: Depression Additional Psychological History / Comment(s): depression r/t menopause not current off all meds Smoking Status: Never smoker Past Alcohol Use History: None Reported Additional Past Alcohol Use History / Comment(s): Never smoker Past Drug Use History: None Reported - Past Family History Mother Family Medical History: No Reported History Additional Family Medical History / Comment(s): chronic bronchitis with partial lung removal Father Family Medical History: Diabetes Mellitus Additional Family Medical History / Comment(s): type 2 Medications and Allergies Home Medications Medication Instructions Recorded Confirmed Type lisinopriL 20 mg PO HS 12/06/18 10/23/20 History Anastrozole [Arimidex] 1 mg PO HS 08/31/19 10/23/20 History Cholecalciferol [Vitamin D3 (25 2,000 unit PO HS 08/31/19 10/23/20 History Mcg = 1000 Iu)] Acetaminophen [Tylenol Extra 1,000 mg PO DIRECTED PRN 01/03/20 10/28/20 History Strength] Alendronate Sodium 70 mg PO WEEKLY 02/14/20 10/23/20 History Omeprazole 40 mg PO QAM 06/26/20 10/23/20 History Ascorbic Acid [Vitamin C] 1,000 mg PO DAILY 10/23/20 10/23/20 History Allergies Allergy/AdvReac Type Severity Reaction Status Date / Time adhesive tape Allergy Rash/Hives Verified 10/28/20 07:07 amlodipine Allergy Swelling Verified 10/28/20 07:07 ciprofloxacin [From Cipro] Allergy Swelling Verified 10/28/20 07:07 citalopram Allergy Hallucinati Verified 10/28/20 07:07 ons Latex, Natural Rubber Allergy Rash/Hives Verified 10/28/20 07:07 diphenhydramine AdvReac Nausea & Verified 10/28/20 07:07 [From Benadryl] Vomiting doxycycline AdvReac Vomiting Verified 10/28/20 07:07 Physical Exam Vitals: Vital Signs Temp Pulse Pulse Resp BP BP Pulse Ox 10/29/20 08:25 97.5 F L 73 16 112/62 95 10/29/20 03:23 97.8 F 78 18 116/71 97 10/28/20 19:35 97.9 F 78 16 125/78 95 10/28/20 15:35 70 16 117/73 98 10/28/20 15:05 73 16 132/61 99 10/28/20 14:35 75 16 116/78 97 10/28/20 14:20 76 16 122/77 95 10/28/20 14:05 76 16 119/78 95 10/28/20 13:50 98.1 F 93 16 127/71 93 L 10/28/20 13:01 71 16 135/74 99 10/28/20 12:46 76 18 131/74 98 10/28/20 12:31 80 16 110/71 96 10/28/20 12:15 81 16 138/72 93 L 10/28/20 12:05 97.1 F L 76 12 124/64 99 Intake and Output 10/28/20 10/29/20 10/29/20 22:59 06:59 14:59 Intake Total 90 120 Output Total 258 62 Balance -168 58 Intake: Oral 90 120 Output: Drainage 108 62 1 13 0 2 24 22 3 56 30 4 15 10 Urine 150 Other: Voiding Method Toilet # Voids 1 1 Results CBC & Chem 7: 10/29/20 05:49 10/28/20 07:24
[2020-10-30] MEDS: HEPARIN SODIUM,PORCINE/PF 5,000 UNIT/0.5 ML SYRINGE SQ SCH ×2 (02:00→10:53)
--- NOTE | 2020-10-30 07:43 | P.PN ---
Subjective Progress Note Date: 10/30/20 Principal diagnosis: Postop day #2 bilateral mastectomy Leslye is a 65-year-old white female status post bilateral mastectomy postop day #2. She is doing well, and tolerating diet without difficulty at this time. She has had some mild incisional discomfort which has improved. Objective - Vital Signs Vital signs: Vital Signs Temp 98.4 F 10/30/20 02:00 Pulse 81 10/30/20 02:00 Resp 81 H 10/30/20 02:00 BP 92/56 10/30/20 02:00 Pulse Ox 95 10/30/20 02:00 Intake & Output 10/29/20 10/30/20 10/30/20 18:59 06:59 18:59 Output Total 125 128 Balance -125 -128 Output: Drainage 125 128 1 0 0 2 55 70 3 50 38 4 20 20 Other: Voiding Method Toilet # Voids 1 1 - Exam BMI 31.7 - Constitutional General appearance: Present: cooperative - EENT Eyes: Present: EOMI ENT: Present: hearing grossly normal - Neck Neck: Present: normal ROM - Respiratory Respiratory: bilateral: CTA - Cardiovascular Rhythm: regular Heart sounds: normal: S1, S2 - Gastrointestinal General gastrointestinal: Present: soft - Integumentary Integumentary Comment(s): Incisions clean and dry bilateral, dressing taken down and incisions examined. No evidence of hematoma, total OLINDA output 128, serous in nature - Psychiatric Psychiatric: Present: A&O x's 3 - Labs CBC & Chem 7: 10/29/20 05:49 10/28/20 07:24 Assessment and Plan Assessment: Impression: 1. Patient status post bilateral mastectomy postop day #2 2. Patient complaining of some incisional discomfort and fatigue yesterday which has improved 3. OLINDA output is serous in nature Plan: 1. Discharge home today 2. Follow-up Dr. Butler next week 3. Call if any questions or concerns 4. Teach patient drain care
--- NOTE | 2020-10-30 07:49 | P.DS ---
Providers Date of admission: 07-30-20 Expected date of discharge: 10/30/20 Attending physician: Simran Shirley Consults: 10/28/20 12:05 Consult Physician Routine Consulting Provider: Miguel Simmons Consult Reason/Comments: medical managment Do you want consulting provider notified?: Yes Primary care physician: [facility] Course: Leslye is a 65-year-old white female who developed a recurrent right breast cancer. She opted for bilateral mastectomy. This was performed on . On postop day #2 she is doing well without complaints and is ready for discharge. Plan - Discharge Summary Discharge Rx Participant: No New Discharge Prescriptions: No Action lisinopriL 20 mg PO HS Cholecalciferol [Vitamin D3 (25 Mcg = 1000 Iu)] 2,000 unit PO HS Anastrozole [Arimidex] 1 mg PO HS Acetaminophen [Tylenol Extra Strength] 1,000 mg PO DIRECTED PRN PRN Reason: Pain Alendronate Sodium 70 mg PO WEEKLY Omeprazole 40 mg PO QAM Ascorbic Acid [Vitamin C] 1,000 mg PO DAILY Discharge Medication List lisinopriL 20 mg PO HS 12/06/18 [History] Anastrozole [Arimidex] 1 mg PO HS 08/31/19 [History] Cholecalciferol [Vitamin D3 (25 Mcg = 1000 Iu)] 2,000 unit PO HS 08/31/19 [History] Acetaminophen [Tylenol Extra Strength] 1,000 mg PO DIRECTED PRN 01/03/20 [History] Alendronate Sodium 70 mg PO WEEKLY 02/14/20 [History] Omeprazole 40 mg PO QAM 06/26/20 [History] Ascorbic Acid [Vitamin C] 1,000 mg PO DAILY 10/23/20 [History] Follow up Appointment(s)/Referral(s): Simran Shirley MD [STAFF PHYSICIAN] - 1 Week Activity/Diet/Wound Care/Special Instructions: [facility] [phone] if taking narcotic pain medication Discharge if okay with medicine/confirm blood pressure medication with medicine Teach patient drain care Discharge Disposition: HOME SELF-CARE
[2020-10-30] MEDS ORDERED: ASCORBIC ACID 500 MG TAB PO SCH (09:00)
[2020-10-30 09:08] VITALS: BP 102/70; PULSE 102; RESP 16
[2020-10-30] MEDS: PANTOPRAZOLE 40 MG TABLET PO SCH (10:54)
[2020-10-30 14:59] VITALS: TEMP 97.7
--- NOTE | 2020-11-01 00:39 | P.PN ---
Progress Note - Text Progress Note Date: 10/30/20 - Chief Complaint Mastectomy Consultation: This is a very pleasant 65-year-old patient of Dr. Lopez. Chronic stable medical conditions include GERD, hypertension, osteoarthritis. Patient had breast cancer 2019 finish chemotherapy in June 2019. Patient had a right breast lumpectomy and radiation therapy while reduction mammoplasty approach. She also underwent a symmetric left breast reduction mammoplasty. She was noted to have some fullness in the right breast and a core biopsy showed recurrent right breast cancer. Metastatic workup was negative. Patient has undergone bilateral mastectomy please as well and double-J drained. Patient is osteoarthritis in multiple joints. Today: Doing well. Pain is controlled. Did tolerate some breakfast. Has been out of bed. Review of systems: Was done for constitutional, cardiovascular, GI, pulmonary. relevant finding as above Current medications reviewed in today's electronic records Past medical history to include: GERD, hypertension, osteoarthritis, breast cancer treated with chemo and radiation. Social history: Lives with her daughter. No history of smoking or alcohol. Family history: Reviewed, noncontributory to presentation Physical examination: VITAL SIGNS: 99, 102, 16, 102/70, 95% room air GENERAL: BMI 31.7, laying in bed, awake comfortable. EYES: Pupils equal. Conjunctiva normal. HEENT: External appearance of nose and ears normal, oral cavity grossly normal. Female pattern hair loss NECK: JVD not raised; masses not palpable. HEART: First and second heart sounds are normal; no edema. LUNGS: Respiratory rate normal; clear to auscultation. ABDOMEN: Soft, nontender, liver spleen not palpable, no masses palpable. PSYCH: Alert and oriented x3; mood and affect normal. CHEST wall: Dressing across the chest with 2 OLINDA drains MUSCULAR skeletal: Evidence of OA in the hands INVESTIGATIONS, reviewed in the clinical context: WBC 8.5 hemoglobin 11.9 platelets 186 potassium 4.1 creatinine 0.85 Assessment and plan: -Bilateral mastectomy for breast cancer. Patient has bilateral OLINDA drain. Dressing in place. Pain control per primary team. -Obesity BMI 31.7 Weight loss measures and follow-up with PCP as an outpatient -GERD Continue with PPI -Essential hypertension Continue with lisinopril -Primary osteoarthritis Tylenol as needed Patient to follow-up with the family doctor point discharge. Care was discussed. Blood pressure monitoring in conjunction with lisinopril was discuss Thank you Dr. Ines Jurado
== END 2020-10-30 14:30 | disposition home or self-care (01) ==
LOC: OR 06:43 → 6PED 12:05 → OR 10-30 14:30
PROVIDERS: ATTEND Surgery
DX: C50.911 Malignant neoplasm of unspecified site of right female breast (principal); E66.9 Obesity, unspecified; K21.9 Gastro-esophageal reflux disease without esophagitis; I10 Essential (primary) hypertension; M89.49 Other hypertrophic osteoarthropathy, multiple sites; E78.5 Hyperlipidemia, unspecified; R53.83 Other fatigue; N64.1 Fat necrosis of breast; N60.12 Diffuse cystic mastopathy of left breast; N60.11 Diffuse cystic mastopathy of right breast; Z91.040 Latex allergy status; Z88.8 Allergy status to other drugs, medicaments and biological substances; Z88.1 Allergy status to other antibiotic agents; Z98.890 Other specified postprocedural states; Z91.09 Other allergy status, other than to drugs and biological substances; Z92.21 Personal history of antineoplastic chemotherapy; Z92.3 Personal history of irradiation; Z68.31 Body mass index [BMI] 31.0-31.9, adult; Z87.448 Personal history of other diseases of urinary system; Z86.39 Personal history of other endocrine, nutritional and metabolic disease; Z90.49 Acquired absence of other specified parts of digestive tract; Z98.82 Breast implant status; Z91.89 Other specified personal risk factors, not elsewhere classified; Z86.59 Personal history of other mental and behavioral disorders; Z78.0 Asymptomatic menopausal state; Z79.899 Other long term (current) drug therapy; Z79.811 Long term (current) use of aromatase inhibitors; Z82.5 Family history of asthma and other chronic lower respiratory diseases; Z83.3 Family history of diabetes mellitus
CPT/HCPCS: 19303; 80053; 85025 ×2; 88307; J2250; J1100; J2405; J0690; J2001; J3010; S0170; J2370; J0330; J2704; J1170; J1790; J1644 ×3

== ENCOUNTER → 2020-11-06 | Outpatient (CLI) | payer MEDICARE ==
[2020-11-06 11:07] VITALS: BP 140/88; PULSE 88; RESP 16; TEMP 97.9
--- NOTE | 2020-11-06 11:13 | P.PN ---
Progress Note - Text Progress Note Date: 11/06/20 Leslye is a 65-year-old white female status post bilateral mastectomy on . The breast did not reveal any malignancy in either breast. She has [address] 3 are less than 40 mL for 2 days in a row, OLINDA #2 is approximately 30 mL per day. The patient is doing well at this time. She has not had any fever or chills. Exam: Lungs: Clear Heart: Regular rate and rhythm Incision clean and dry bilateral Inferior aspect of right chest wall incision mild erythema Impression: 1. Patient doing well status post bilateral mastectomy 2. 3 drains removed the drain #2 toe next week 3. Half of natasha removed 4. Continue to follow with medical oncology 5. Prescription for Keflex for 1 week CC: Michelle Barraza
== END | disposition home or self-care (01) ==
LOC: WWCWWP 10:47
PROVIDERS: ATTEND Surgery
DX: Z48.03 Encounter for change or removal of drains (principal); Z90.13 Acquired absence of bilateral breasts and nipples

== ENCOUNTER → 2020-11-14 | Outpatient (CLI) | payer MEDICARE, OTHER ==
[2020-11-14 12:46] VITALS: BP 123/87; PULSE 91; RESP 16; TEMP 97.5
--- NOTE | 2020-11-14 12:53 | P.PN ---
Progress Note - Text Progress Note Date: 11/14/20 Leslye is a 65-year-old white female status post bilateral mastectomy on . The breast did not reveal any malignancy in either breast. She has [address] the output is about 30 cc/day. The patient is doing well at this time. She has not had any fever or chills. Exam: Lungs: Clear Heart: Regular rate and rhythm Incision clean and dry bilateral Inferior aspect of right chest wall incision mild erythema resolved Impression: 1. Patient doing well status post bilateral mastectomy 2. [address] leave until next week 3. remove rest of natasha/Steri-Strips 4. Continue to follow with medical oncology
== END ==
LOC: WWCWWP 12:08
PROVIDERS: ATTEND Surgery
DX: Z48.03 Encounter for change or removal of drains (principal); Z90.13 Acquired absence of bilateral breasts and nipples

== ENCOUNTER → 2020-11-20 | Outpatient (CLI) | payer MEDICARE, OTHER ==
[2020-11-20 12:03] VITALS: BP 109/73; PULSE 101; RESP 18; TEMP 98.2
--- NOTE | 2020-11-20 12:14 | P.PN ---
Progress Note - Text Progress Note Date: 11/20/20 Leslye is a 65-year-old white female status post bilateral mastectomy on . The pathology did not reveal any malignancy in either breast. She has [address] the output is about 25 cc/day. The patient is doing well at this time. She has not had any fever or chills. Exam: Lungs: Clear Heart: Regular rate and rhythm Incision clean and dry bilateral Inferior aspect of right chest wall incision mild erythema resolved Impression: 1. Patient doing well status post bilateral mastectomy 2. remove drain 3. Continue to follow with medical oncology 4. follow up here in 3 months CC: Dr. Lopez
== END ==
LOC: WWCWWP 11:47
PROVIDERS: ATTEND Surgery
DX: Z09 Encounter for follow-up examination after completed treatment for conditions other than malignant neoplasm (principal); Z90.13 Acquired absence of bilateral breasts and nipples

== ENCOUNTER → 2020-11-27 | Outpatient (CLI) | payer MEDICARE, OTHER ==
--- NOTE | 2020-11-27 09:39 | P.PN ---
Progress Note - Text Progress Note Date: 11/27/20 Leslye is a 65-year-old white female status post bilateral mastectomy on . The pathology did not reveal any malignancy in either breast. She had all OLINDA drains removed. The patient is doing well at this time. She complains of some fullness in the right mastectomy site. She has not had any fever or chills. Exam: Lungs: Clear Heart: Regular rate and rhythm Incision clean and dry bilateral Inferior aspect of right chest wall incision mild erythema resolved Impression: 1. Patient doing well status post bilateral mastectomy 2. seroma right chest wall 3. Continue to follow with medical oncology (appointment February,) 4. follow up here in 2 weeks or sooner if patient concerned CC: Dr. Lopez
--- NOTE | 2020-11-27 09:40 | P.PCN ---
Date of Procedure: 11/27/20 Preoperative Diagnosis: Seroma right chest wall Postoperative Diagnosis: Same Procedure(s) Performed: Aspiration of seroma Condition: stable Disposition: same day Indications for Procedure: Seroma symptomatic right chest wall Operative Findings: 100 mL of straw-colored fluid Description of Procedure: Brief concern in the right chest wall was prepped using alcohol. An 18-gauge needle on a 20 mL syringe was used to aspirate the fluid. Approximately 100 mL was aspirated. Complete aspiration of seroma was accomplished. Patient tolerated procedure in stable condition.
[2020-11-27 09:47] VITALS: BP 132/90; PULSE 78; RESP 16; TEMP 98.3
== END ==
LOC: WWCWWP 09:03
PROVIDERS: ATTEND Surgery
DX: L76.34 Postprocedural seroma of skin and subcutaneous tissue following other procedure (principal); Z90.13 Acquired absence of bilateral breasts and nipples; Z88.1 Allergy status to other antibiotic agents; Z88.8 Allergy status to other drugs, medicaments and biological substances

== ENCOUNTER → 2020-12-12 | Outpatient (CLI) | payer MEDICARE, OTHER ==
--- NOTE | 2020-12-12 11:03 | P.PN ---
Progress Note - Text Progress Note Date: 12/12/20 Leslye is a 65-year-old white female status post bilateral mastectomy on . The pathology did not reveal any malignancy in either breast. She had all OLINDA drains removed. The patient is doing well at this time. She complains of some fullness in the right mastectomy site. She has not had any fever or chills. Examination Incision clean and dry bilateral; seroma right chest wall with mild erythema Left chest wall completely healed Impression: 1. Patient doing well status post bilateral mastectomy 2. seroma right chest wall/aspiration 3. Continue to follow with medical oncology (appointment February,) 4. follow up here in 2 weeks or sooner if patient concerned CC: Dr. Lopez
--- NOTE | 2020-12-12 11:06 | P.PCN ---
Date of Procedure: 12/12/20 Preoperative Diagnosis: Right chest wall seroma Postoperative Diagnosis: Same Procedure(s) Performed: Aspiration of seroma Anesthesia: local Surgeon: Simran Shirley Pathology: none sent Condition: stable Disposition: same day Indications for Procedure: Symptomatic seroma right chest wall Description of Procedure: The area of concern in the right breast was prepped using alcohol. A 18-gauge needle on a 60 mL syringe was inserted into the area and straw-colored fluid was withdrawn. A loculated area in the medial portion was also addressed and an 18- gauge needle on a 20 mL syringe was used to withdraw fluid from this site. In 1245 mL of straw-colored fluid was withdrawn. Patient to be complete resolution of the seroma. There is no evidence of any infection. The patient is going to follow up in 2 weeks She is going to be given a prescription for Keflex secondary to the mild erythema
[2020-12-12 11:17] VITALS: BP 144/93; PULSE 101; RESP 16; TEMP 98.2
== END ==
LOC: WWCWWP 10:40
PROVIDERS: ATTEND Surgery
DX: M96.843 Postprocedural seroma of a musculoskeletal structure following other procedure (principal); Z90.13 Acquired absence of bilateral breasts and nipples; Z88.1 Allergy status to other antibiotic agents; Z88.8 Allergy status to other drugs, medicaments and biological substances; Z91.048 Other nonmedicinal substance allergy status; Z91.040 Latex allergy status

== ENCOUNTER → 2020-12-25 | Outpatient (CLI) | payer MEDICARE, OTHER ==
[2020-12-25 13:38] VITALS: BP 104/72; PULSE 99; RESP 18; TEMP 98.5
--- NOTE | 2020-12-25 13:50 | P.PN ---
Progress Note - Text Progress Note Date: 12/25/20 Leslye is a 65-year-old white female status post bilateral mastectomy on . The pathology did not reveal any malignancy in either breast. The patient is doing well at this time. She complains of some fullness in the right mastectomy site. She has not had any fever or chills. Examination Incision clean and dry bilateral; seroma right chest wall Left chest wall completely healed Impression: 1. Patient doing well status post bilateral mastectomy 2. seroma right chest wall/aspiration 3. Continue to follow with medical oncology (appointment February,) 4. follow up here in 2 weeks or sooner if patient concerned Plan: 1. Aspiration of seroma Area of the chest wall was prepped using alcohol. An 18-gauge needle on a 20 mL syringe was used to aspirate the fluid. 175 mL of straw-colored fluid was aspirated with resolution of the seroma. The patient tolerated the procedure with no difficulty.
== END ==
LOC: WWCWWP 13:10
PROVIDERS: ATTEND Surgery
DX: L76.34 Postprocedural seroma of skin and subcutaneous tissue following other procedure (principal); Z90.13 Acquired absence of bilateral breasts and nipples; Z91.048 Other nonmedicinal substance allergy status; Z88.1 Allergy status to other antibiotic agents; Z91.040 Latex allergy status; Z88.8 Allergy status to other drugs, medicaments and biological substances

== ENCOUNTER → 2021-01-08 | Outpatient (CLI) | payer MEDICARE, OTHER ==
--- NOTE | 2021-01-08 13:03 | P.PN ---
Progress Note - Text Progress Note Date: 01/08/21 Leslye is a 65-year-old white female status post bilateral mastectomy on . The pathology did not reveal any malignancy in either breast. The patient is doing well at this time. She complains of some fullness in the right mastectomy site. She has not had any fever or chills. Examination Incision clean and dry bilateral; seroma right chest wall Left chest wall completely healed Impression: 1. Patient doing well status post bilateral mastectomy 2. seroma right chest wall/aspiration 3. Continue to follow with medical oncology (appointment February,) 4. follow up here in 2 weeks or sooner if patient concerned Plan: 1. Aspiration of seroma 2. follow up in 2 weeks Area of the chest wall was prepped using alcohol. An 18-gauge needle on a 20 mL syringe was used to aspirate the fluid. 200 mL of straw-colored fluid was aspirated with resolution of the seroma. The patient tolerated the procedure with no difficulty.
[2021-01-08 13:06] VITALS: BP 105/73; PULSE 113; RESP 16; TEMP 98.2
== END ==
LOC: WWCWWP 12:43
PROVIDERS: ATTEND Surgery
DX: L76.34 Postprocedural seroma of skin and subcutaneous tissue following other procedure (principal); Z90.13 Acquired absence of bilateral breasts and nipples; Z88.1 Allergy status to other antibiotic agents; Z91.048 Other nonmedicinal substance allergy status; Z91.040 Latex allergy status; Z88.8 Allergy status to other drugs, medicaments and biological substances

== ENCOUNTER → 2021-01-22 | Outpatient (CLI) | payer MEDICARE, OTHER ==
--- NOTE | 2021-01-22 11:41 | P.PN ---
Progress Note - Text Progress Note Date: 01/22/21 Leslye is a 65-year-old white female status post bilateral mastectomy on . The pathology did not reveal any malignancy in either breast. The patient is doing well at this time. She complains of some fullness in the right mastectomy site. She has not had any fever or chills. Examination Incision clean and dry bilateral; seroma right chest wall Left chest wall completely healed lungs: clear heart: S1 S2 Impression: 1. Patient doing well status post bilateral mastectomy 2. seroma right chest wall/aspiration 3. Continue to follow with medical oncology (appointment February,) 4. follow up here in 2 weeks or sooner if patient concerned Plan: 1. Aspiration of seroma 2. follow up in 2 weeks Area of the chest wall was prepped using alcohol. An 18-gauge needle on a 20 mL syringe was used to aspirate the fluid. 235 mL of straw-colored fluid was aspirated with resolution of the seroma. The patient tolerated the procedure with no difficulty.
[2021-01-22 11:48] VITALS: BP 141/82; PULSE 103; RESP 18; TEMP 98.1
== END ==
LOC: WWCWWP 11:24
PROVIDERS: ATTEND Surgery
DX: M96.843 Postprocedural seroma of a musculoskeletal structure following other procedure (principal); Z90.13 Acquired absence of bilateral breasts and nipples; Z91.048 Other nonmedicinal substance allergy status; Z88.8 Allergy status to other drugs, medicaments and biological substances; Z88.1 Allergy status to other antibiotic agents; Z91.040 Latex allergy status

== ENCOUNTER 2021-02-02 09:45 | Inpatient (IN) | payer MEDICARE, OTHER ==
[2021-02-02] MEDS ORDERED: ACETAMINOPHEN TAB 500 MG TAB PO STA (10:30)
--- NOTE | 2021-02-02 10:35 | ED ---
General Adult HPI - General Chief complaint: Skin/Abscess/Foreign Body Stated complaint: infection Time Seen by Provider: 02/02/21 09:52 Source: patient, RN notes reviewed Mode of arrival: ambulatory Limitations: no limitations - History of Present Illness Initial comments: Patient is a pleasant 65-year-old female presenting to the emergency department with concern for infection of right breast scar. Patient has had several surgeries, last was in October. Patient has had fluid drainage several times from there since that time. 3 days ago patient started getting erythema and tenderness to the right chest. This has progressively worsened. Patient now is getting fevers up to 102 at home. - Related Data Home Medications Medication Instructions Recorded Confirmed lisinopriL 20 mg PO HS 12/06/18 01/22/21 Anastrozole [Arimidex] 1 mg PO HS 08/31/19 01/22/21 Cholecalciferol [Vitamin D3 (25 2,000 unit PO HS 08/31/19 01/22/21 Mcg = 1000 Iu)] Acetaminophen [Tylenol Extra 1,000 mg PO DIRECTED PRN 01/03/20 01/22/21 Strength] Alendronate Sodium 70 mg PO WEEKLY 02/14/20 01/22/21 Omeprazole 40 mg PO QAM 06/26/20 01/22/21 Ascorbic Acid [Vitamin C] 1,000 mg PO QAM 10/23/20 01/22/21 Allergies Allergy/AdvReac Type Severity Reaction Status Date / Time adhesive tape Allergy Rash/Hives Verified 02/02/21 09:49 amlodipine Allergy Swelling Verified 02/02/21 09:49 ciprofloxacin [From Cipro] Allergy Swelling Verified 02/02/21 09:49 citalopram Allergy Hallucinati Verified 02/02/21 09:49 ons Latex, Natural Rubber Allergy Rash/Hives Verified 02/02/21 09:49 diphenhydramine AdvReac Nausea & Verified 02/02/21 09:49 [From Benadryl] Vomiting doxycycline AdvReac Vomiting Verified 02/02/21 09:49 Review of Systems ROS Statement: Those systems with pertinent positive or pertinent negative responses have been documented in the HPI. ROS Other: All systems not noted in ROS Statement are negative. Constitutional: Reports: fever, chills Eyes: Denies: eye pain ENT: Denies: ear pain Respiratory: Denies: cough Cardiovascular: Denies: chest pain Endocrine: Denies: fatigue Gastrointestinal: Denies: abdominal pain Genitourinary: Denies: dysuria Musculoskeletal: Denies: back pain Skin: Reports: as per HPI, rash Past Medical History Past Medical History: Cancer, GERD/Reflux, Hypertension, Osteoarthritis (OA) Additional Past Medical History / Comment(s): RT BREAST CA 01/17/19; finished chemo 06/28/19; HX of RENAL FAILURE R/T DEHYDRATION YEARS AGO; History of Any Multi-Drug Resistant Organisms: None Reported Past Surgical History: Breast Surgery, Cholecystectomy Additional Past Surgical History / Comment(s): D&C; RT BREAST BIOPSIES; port a cath rt chest; rt breast lumpectomy and removal of 9 lymph nodes; rt breast augmentation; port-a-cath removed 12/2019; lt breast reducation 02/05/20; bilateral mastectomy 10/28/20; Past Anesthesia/Blood Transfusion Reactions: Postoperative Nausea & Vomiting (PONV) Past Psychological History: Depression Smoking Status: Never smoker Past Alcohol Use History: None Reported Past Drug Use History: None Reported - Past Family History Mother Family Medical History: No Reported History Additional Family Medical History / Comment(s): chronic bronchitis with partial lung removal Father Family Medical History: Diabetes Mellitus Additional Family Medical History / Comment(s): type 2 General Exam Limitations: no limitations General appearance: alert, in no apparent distress Head exam: Present: normocephalic Eye exam: Present: normal appearance Neck exam: Present: normal inspection Respiratory exam: Present: normal lung sounds bilaterally, other (Right chest with erythema warmth and tenderness) Cardiovascular Exam: Present: regular rate, normal rhythm GI/Abdominal exam: Present: soft. Absent: tenderness Extremities exam: Present: normal inspection Neurological exam: Present: alert Psychiatric exam: Present: normal affect, normal mood Skin exam: Present: erythema (Right chest with area of approximately 5 x 20 cm of erythema warmth and tenderness and swelling.) Course Vital Signs 02/02/21 09:46 Temperature 99.0 F Pulse Rate 87 Respiratory 18 Rate Blood Pressure 114/71 O2 Sat by Pulse 96 Oximetry EKG Findings - EKG Comments: EKG Findings:: Normal sinus rhythm with a rate of 88. DE 162. QRS 70. QT 344. QTC 416. Normal axis. Normal QRS. No acute ST change. Medical Decision Making - Medical Decision Making Patient reevaluated and updated. Case was discussed with Dr. Shirley who will consult. She recommends cefepime and vancomycin. Dr. Simmons has been paged for admission for Dr. Lopez. - Lab Data Result diagrams: 02/02/21 11:03 Lab Results 02/02/21 02/02/21 02/02/21 Range/Units 11:03 11:03 11:03 WBC 10.2 (3.8-10.6) k/uL RBC 4.05 (3.80-5.40) m/uL Hgb 11.8 (11.4-16.0) gm/dL Hct 36.7 (34.0-46.0) % MCV 90.5 (80.0-100.0) fL MCH 29.1 (25.0-35.0) pg MCHC 32.1 (31.0-37.0) g/dL RDW 13.7 (11.5-15.5) % Plt Count 240 (150-450) k/uL MPV 8.4 Neutrophils % 86 % Lymphocytes % 7 % Monocytes % 5 % Eosinophils % 0 % Basophils % 0 % Neutrophils # 8.7 H (1.3-7.7) k/uL Lymphocytes # 0.7 L (1.0-4.8) k/uL Monocytes # 0.5 (0-1.0) k/uL Eosinophils # 0.0 (0-0.7) k/uL Basophils # 0.0 (0-0.2) k/uL PT 10.2 (9.0-12.0) sec INR 0.9 (<1.2) APTT 24.2 (22.0-30.0) sec Plasma Lactic Acid Juan Antonio 0.9 (0.7-2.0) mmol/L - Radiology Data Radiology results: image reviewed (Chest x-ray shows some atelectasis) Disposition Clinical Impression: Cellulitis of chest wall Disposition: ADMITTED IP TO THIS HOSP Is patient prescribed a controlled substance at d/c from ED?: No Referrals: Abdon Lopez MD [Primary Care Provider] - 1-2 days Decision Time: 12:02
[2021-02-02 11:33] LABS: Basophils % (A) 0 %; Eosinophils % (A) 0 %; HCT 36.7 % (34.0-46.0); HGB 11.8 gm/dL (11.4-16.0); Lymphocytes # (A) 0.7 k/uL (1.0-4.8); Lymphocytes % (A) 7 %; MCH 29.1 pg (25.0-35.0); MCHC 32.1 g/dL (31.0-37.0); MCV 90.5 fL (80.0-100.0); Mean Platelet Volume 8.4; Monocytes # (A) 0.5 k/uL (0-1.0); Monocytes % (A) 5 %; Neutrophils # (A) 8.7 k/uL (1.3-7.7); Neutrophils % (A) 86 %; Platelet Count 240 k/uL (150-450); RBC 4.05 m/uL (3.80-5.40); RDW 13.7 % (11.5-15.5); WBC 10.2 k/uL (3.8-10.6)
[2021-02-02 11:41] LABS: INR 0.9 (<1.2); Partial Thromboplastin Time 24.2 sec (22.0-30.0); Prothrombin Time 10.2 sec (9.0-12.0)
[2021-02-02 11:48] LABS: Albumin 3.5 g/dL (3.5-5.0); Calcium 8.9 mg/dL (8.4-10.2); Total Bilirubin 1.1 mg/dL (0.2-1.3); Total Protein 6.4 g/dL (6.3-8.2)
--- NOTE | 2021-02-02 11:49 | XR ---
EXAMINATION TYPE: XR chest 2V DATE OF EXAM: 02/02/2021 COMPARISON: Prior chest x-ray dated 01/24/2019 HISTORY: Fever, seroma, at cellulitis TECHNIQUE: Frontal and lateral views of the chest are obtained. FINDINGS: Patient is rotated. There are overlying leads. The port has been removed. No evident airsp jeff disease, pneumothorax, or pleural effusion. Some minimal patchy basilar density is present. Cardi ac mediastinal silhouette is likely within normal limits. Question surgical clips in the right upper quadrant. IMPRESSION: Some probable subsegmental basilar atelectasis. Interval port removal.
[2021-02-02] MEDS ORDERED: NALOXONE 0.4 MG/ML 1 ML VIAL IV PRN (12:03)
[2021-02-02] MEDS ORDERED: CEFEPIME 2 GM in SODIUM CHLORIDE 0.9% 100 ML IVPB STA (12:04)
[2021-02-02] MEDS ORDERED: VANCOMYCIN IV PER PHARMACY 1 EACH MISC MISCELLANE PRN (12:05)
[2021-02-02 12:07] LABS: Potassium 4.4 mmol/L (3.5-5.1)
[2021-02-02 12:23] LABS: Appearance,Urine Cloudy (Clear); Bacteria,Urine Rare /hpf; Bilirubin,Urine 1+ (Negative); Blood,Urine Negative (Negative); Color,Urine Yellow; Glucose,Urine (UA) Negative (Negative); Ketones,Urine Negative (Negative); Leukocyte Esterase,Urine Trace (Negative); Mucus,Urine Few /hpf; Nitrite,Urine Negative (Negative); PH, Urine 5.5 (5.0-8.0); Protein,Urine 1+ (Negative); Specific Gravity,Urine 1.025 (1.001-1.035); Squamous Epithelial Cell,Urine <1 /hpf (0-4); WBC,Urine 4 /hpf (0-5)
[2021-02-02] MEDS ORDERED: VANCOMYCIN 1,500 MG in SODIUM CHLORIDE 0.9% 250 ML IVPB ONE (12:30)
[2021-02-02] MEDS ORDERED: PANTOPRAZOLE 40 MG TABLET PO PRN (12:35)
[2021-02-02] MEDS ORDERED: ACETAMINOPHEN TAB 500 MG TAB PO PRN (12:35)
[2021-02-02] MEDS ORDERED: LACTULOSE 20 GM/30 ML CUP PO PRN (12:36)
[2021-02-02] MEDS ORDERED: CALCIUM CARBONATE 500 MG CHEWABLE PO PRN (12:36)
[2021-02-02] MEDS ORDERED: MELATONIN 3 MG TABLET PO PRN (12:36)
[2021-02-02] MEDS ORDERED: TEMAZEPAM 15 MG CAP PO PRN (12:36)
[2021-02-02] MEDS ORDERED: MAG HYDROX/AL HYDROX/SIMETH 30 ML CUP PO PRN (12:36)
[2021-02-02] MEDS ORDERED: MAGNESIUM HYDROXIDE 2,400 MG/10 ML CUP PO PRN (12:36)
[2021-02-02] MEDS ORDERED: ONDANSETRON 4 MG/2 ML VIAL IVP PRN (12:36)
--- NOTE | 2021-02-02 12:47 | USB ---
Right breast ultrasound INDICATION: Abscess COMPARISON: 08/26/2020 FINDINGS: Targeted right breast ultrasound was performed from 2-9 o'clock and in the axillary tail. Along arya nt's scar from 2-9:00, there is a 9.9 x 3.6 cm septated collection. IMPRESSION: 9.9 cm septated collection along the right breast postsurgical scar spanning from 2-9 o'clock most li sanchez represents a postoperative seroma. Complicating infection cannot be excluded. Clinical follow-up is recommended. Repeat imaging can be obtained, as clinically warranted. BI-RADS 0, incomplete. Patient is overdue for her left mammogram.
[2021-02-02] MEDS: ENOXAPARIN 40 MG/0.4 ML SYRINGE SQ SCH (14:54)
--- NOTE | 2021-02-02 15:09 | P.HPIM ---
History of Present Illness H&P Date: 02/02/21 Chief Complaint: Right chest wall swelling tenderness History of presenting complaint: This is a very pleasant 65-year-old patient of Dr. Lopez. Chronic stable medical conditions include GERD, hypertension, osteoarthritis. Patient had breast cancer 2019 finish chemotherapy in June 2019. Patient had a right breast lumpectomy and radiation therapy while reduction mammoplasty approach. She also underwent a symmetric left breast reduction mammoplasty. She was noted to have some fullness in the right breast and a core biopsy showed recurrent right breast cancer. Metastatic workup was negative. 10/28/2020: bilateral mastectomy. Since the surgery she's had at least 5 episodes of seroma that was drained by Dr. Cristóbal jurado About 3-4 days ago patient started having increasing redness in the right chest fall. Fevers. Painful. Lump appeared. Patient is a poor appetite. She was been up to 102. Decided to come in. Dr. Cristóbal Jurado was informed. Patient was started on IV cefepime and vancomycin. Admitted Review of systems: GEN.: Decrease appetite, fever EYES: None HEENT: None( NECK: None RESPIRATORY: None CARDIOVASCULAR: None GASTROINTESTINAL: None GENITOURINARY: None MUSCULOSKELETAL: Joint pains LYMPHATICS: None HEMATOLOGICAL: None PSYCHIATRY: None NEUROLOGICAL: None Past medical history to include: GERD, hypertension, osteoarthritis, breast cancer treated with chemo and radiation. Recurrent mastectomy site seroma Social history: Lives with her daughter. No history of smoking or alcohol. Family history: Reviewed, noncontributory to presentation Physical examination: VITAL SIGNS: 99, 97, 18, 114/71, 96% room air GENERAL: BMI 30.7, laying in bed, awake, tired EYES: Pupils equal. Conjunctiva normal. HEENT: External appearance of nose and ears normal, oral cavity grossly normal. Female pattern hair loss NECK: JVD not raised; masses not palpable. HEART: First and second heart sounds are normal; no edema. LUNGS: Respiratory rate normal; clear to auscultation. ABDOMEN: Soft, nontender, liver spleen not palpable, no masses palpable. PSYCH: Alert and oriented x3; mood and affect normal. CHEST wall: Right site: 8 of extensive redness at the mastectomy site and around and sensation. There is a lump at the anterior axillary line. Rather tender, questionable fluctuant MUSCULAR skeletal: Evidence of OA in the hands NEUROLOGICAL: Cranial nerves grossly intact; no facial asymmetry, power and sensation grossly intact. LYMPHATICS: No lymph nodes palpable in the axilla and neck INVESTIGATIONS, reviewed in the clinical context: WBC 10.2 hemoglobin 11.8 platelets 240 potassium 4.4 BUN 14 creatinine 0.87 Right breast ultrasound: 9.9 cm septated collection dowling along the right breast postsurgical scar. EKG tracing personally reviewed by me: Normal sinus rhythm Check stat x-ray film personally reviewed by me: Lung mathews clear Assessment and plan: -Area of tender. Fluid collection at the right mastectomy site. Patient's had at least 5 seroma was drained. This could be the same. In the setting of fever up 100 to secondary infection after seroma/absent to be considered. Patient is being put on IV cefepime, IV vancomycin. Skin marker. Warm compress. Dr. Cristóbal Jurado consulted -Acute cellulitis on the right chest wall at the mastectomy site -Obesity BMI 30.7 Weight loss measures and follow-up with PCP as an outpatient -GERD Continue with PPI -Essential hypertension Continue with lisinopril -Primary osteoarthritis Tylenol as needed Lovenox for DVT prophylaxis. IV cefepime, IV vancomycin. Add naproxen for anti-inflammatory effect. Check procalcitonin. Given the complexity and severity of patient's condition expect the patient to be in the hospital at least for 2 overnights Past Medical History Past Medical History: Cancer, GERD/Reflux, Hypertension, Osteoarthritis (OA) Additional Past Medical History / Comment(s): RT BREAST CA 01/17/19; finished chemo 06/28/19; HX of RENAL FAILURE R/T DEHYDRATION YEARS AGO; History of Any Multi-Drug Resistant Organisms: None Reported Past Surgical History: Breast Surgery, Cholecystectomy Additional Past Surgical History / Comment(s): D&C; RT BREAST BIOPSIES; port a cath rt chest; rt breast lumpectomy and removal of 9 lymph nodes; rt breast augmentation; port-a-cath removed 12/2019; lt breast reducation 02/05/20; bilateral mastectomy 10/28/20; Past Anesthesia/Blood Transfusion Reactions: Postoperative Nausea & Vomiting (PONV) Past Psychological History: Depression Smoking Status: Never smoker Past Alcohol Use History: None Reported Past Drug Use History: None Reported - Past Family History Mother Family Medical History: No Reported History Additional Family Medical History / Comment(s): chronic bronchitis with partial lung removal Father Family Medical History: Diabetes Mellitus Additional Family Medical History / Comment(s): type 2 Medications and Allergies Home Medications Medication Instructions Recorded Confirmed Type lisinopriL 20 mg PO HS 12/06/18 02/02/21 History Anastrozole [Arimidex] 1 mg PO HS 08/31/19 02/02/21 History Cholecalciferol [Vitamin D3 (25 50 mcg PO HS 08/31/19 02/02/21 History Mcg = 1000 Iu)] Acetaminophen [Tylenol Extra 1,000 mg PO QID PRN 01/03/20 02/02/21 History Strength] Alendronate Sodium 70 mg PO JIMENEZ 02/14/20 02/02/21 History Omeprazole 40 mg PO DAILY PRN 06/26/20 02/02/21 History Allergies Allergy/AdvReac Type Severity Reaction Status Date / Time adhesive tape Allergy Rash/Hives Verified 02/02/21 12:07 amlodipine Allergy Swelling Verified 02/02/21 12:07 ciprofloxacin [From Cipro] Allergy Swelling Verified 02/02/21 12:07 Knees & Ankles Latex, Natural Rubber Allergy Rash/Hives Verified 02/02/21 12:07 citalopram AdvReac Hallucinati Verified 02/02/21 12:07 ons/Nightma res diphenhydramine AdvReac Nausea & Verified 02/02/21 12:07 [From Benadryl] Vomiting doxycycline AdvReac Vomiting/Kidney Verified 02/02/21 12:07 Failure hydrochlorothiazide AdvReac Vomiting/Kidney Verified 02/02/21 12:07 [From Dyazide] Failure triamterene [From Dyazide] AdvReac Vomiting/Kidney Verified 02/02/21 12:07 Failure Physical Exam Vitals: Vital Signs Temp Pulse Pulse Resp BP BP Pulse Ox 02/02/21 12:57 98.5 F 85 18 110/78 95 02/02/21 12:44 98.4 F 82 18 100/72 99 02/02/21 09:46 99.0 F 87 18 114/71 96 Intake and Output 02/02/21 02/02/21 02/02/21 06:59 14:59 22:59 Other: Weight 75.75 kg Results CBC & Chem 7: 02/02/21 11:03 02/02/21 11:03 Labs: Abnormal Lab Results - Last 24 Hours (Table) 02/02/21 02/02/21 02/02/21 Range/Units 11:03 11:03 11:03 Neutrophils # 8.7 H (1.3-7.7) k/uL Lymphocytes # 0.7 L (1.0-4.8) k/uL Sodium 132 L (137-145) mmol/L Glucose 112 H (74-99) mg/dL AST 143 H (14-36) U/L ALT 186 H (4-34) U/L Alkaline Phosphatase 218 H (38-126) U/L Urine Appearance Cloudy H (Clear) Urine Protein 1+ H (Negative) Urine Bilirubin 1+ H (Negative) Ur Leukocyte Esterase Trace H (Negative) Urine Bacteria Rare H (None) /hpf Urine Mucus Few H (None) /hpf
[2021-02-02] MEDS: PANTOPRAZOLE 40 MG TABLET PO SCH ×2 (17:45→18:14)
[2021-02-02] MEDS: NAPROXEN 250 MG TAB PO SCH ×2 (17:45→23:23)
[2021-02-02] MEDS: CEFEPIME 1 GM in SODIUM CHLORIDE 0.9% 50 ML IVPB SCH (20:31)
[2021-02-02] MEDS: ANASTROZOLE 1 MG TAB PO SCH (20:31)
[2021-02-02] MEDS: SODIUM CHLORIDE 0.9% 1,000 ML IV SCH (20:54)
[2021-02-02] MEDS ORDERED: lisinopriL 20 MG TAB PO SCH (21:00)
[2021-02-03] MEDS: VANCOMYCIN 1,250 MG in SODIUM CHLORIDE 0.9% 250 ML IVPB SCH ×2 (05:33→20:58)
[2021-02-03] MEDS: PANTOPRAZOLE 40 MG TABLET PO SCH ×2 (06:24→15:41)
[2021-02-03 07:18] LABS: Basophils % (A) 1 %; Eosinophils # (A) 0.1 k/uL (0-0.7); Eosinophils % (A) 1 %; HCT 31.4 % (34.0-46.0); HGB 10.5 gm/dL (11.4-16.0); Lymphocytes # (A) 0.6 k/uL (1.0-4.8); Lymphocytes % (A) 7 %; MCH 31.3 pg (25.0-35.0); MCHC 33.4 g/dL (31.0-37.0); MCV 93.8 fL (80.0-100.0); Mean Platelet Volume 8.9; Monocytes # (A) 0.5 k/uL (0-1.0); Monocytes % (A) 6 %; Neutrophils # (A) 6.5 k/uL (1.3-7.7); Neutrophils % (A) 84 %; Platelet Count 212 k/uL (150-450); RBC 3.35 m/uL (3.80-5.40); RDW 13.2 % (11.5-15.5); WBC 7.8 k/uL (3.8-10.6)
[2021-02-03 07:38] LABS: African American GFR (CKD) >90 (>60 ml/min/1.73 sqM); Non-African American GFR(CKD) 81 (>60 ml/min/1.73 sqM)
[2021-02-03] MEDS: CEFEPIME 1 GM in SODIUM CHLORIDE 0.9% 50 ML IVPB SCH ×2 (08:42→20:58)
[2021-02-03] MEDS: NAPROXEN 250 MG TAB PO SCH ×3 (08:47→21:23)
[2021-02-03] MEDS: ENOXAPARIN 40 MG/0.4 ML SYRINGE SQ SCH (08:47)
[2021-02-03] MEDS: SODIUM CHLORIDE 0.9% 1,000 ML IV SCH (08:53)
--- NOTE | 2021-02-03 15:23 | P.GSHP ---
History of Present Illness H&P Date: 02/03/21 Chief Complaint: Cellulitis right chest wall Leslye is a 65-year-old white female who initially presented in 2018 with a nodule in her right breast which had been present for approximately 2 years. She was subsequently diagnosed with invasive ductal carcinoma and underwent neoadjuvant chemotherapy. She then underwent a lumpectomy radiation therapy and hormone therapy. She subsequently underwent a left breast reduction mammoplasty for asymmetry. She was doing well until June 2020 with some friable mass was noted in the 12 o'clock position of the right breast. A core biopsy was performed which revealed minute atypical focus suspicious for residual/recurrent invasive carcinoma in a background of scar and fat necrosis with radiation therapy changes. The specimen was sent to [facility] and it was felt that the concerning focus to represent residual/recurrent invasive carcinoma. The patient therefore opted for bilateral mastectomies which were performed and [id number]. The left breast revealed negative for malignancy. The right breast as well was negative for malignancy. The patient since that time has had seromas aspirated intermittently from the right chest wall. She was doing well until approximately 4 days ago when she noted increased erythema and pain on the right chest wall. She presented to the emergency department and was admitted for IV antibiotic therapy. She states that since the antibiotics she is feeling better. She stated at home she did have elevated temperatures to as high as 102. An ultrasound was performed on which revealed along the patient's scar and 9.9 x 3.6 cm septated collection. Family history: Paternal grandmother: Questionable breast cancer Paternal aunt: Lung cancer smoker Maternal aunt: Brain cancer Hormonal history: Menarche: 10 first child born at 28, press-fit: No Menopause: 50 control pills: 5 years Hormones: None Surgical history: Cholecystectomy D&C Right breast lumpectomy via reduction mammoplasty incision; SNB/left breast reduction mammoplasty Bilateral mastectomy with right axillary node resection Medical history: Hypertension Depression Arthritis Social history: Smoke: Negative Alcohol: Negative Drugs: Negative - Constitutional Constitutional: Reports sweats - EENT Eyes: denies blurred vision, denies pain Ears: deny: decreased hearing, tinnitus Ears, nose, mouth and throat: Denies headache, Denies sore throat - Breasts Breasts: bilateral: as per HPI - Cardiovascular Cardiovascular: Reports high blood pressure - Respiratory Respiratory: Denies cough, Denies 7 - Gastrointestinal Gastrointestinal: Denies abdominal pain, Denies diarrhea, Denies nausea, Denies vomiting - Genitourinary (Female) Genitourinary: Denies dysuria, Denies hematuria - Genitourinary (Male) Genitourinary: Denies dysuria, Denies hematuria - Musculoskeletal Comment: Intermittent arthritis in knees - Integumentary Comment: Intermittent folliculitis - Neurological Neurological: Denies numbness, Denies weakness - Psychiatric Psychiatric: Reports depression - Endocrine Endocrine: Reports fatigue - Hematologic/Lymphatic Comment: none - Allergic/Immunologic Allergic/Immunologic: Reports as per HPI Past Medical History Past Medical History: Cancer, GERD/Reflux, Hypertension, Osteoarthritis (OA) Additional Past Medical History / Comment(s): RT BREAST CA 01/17/19; finished chemo 06/28/19; HX of RENAL FAILURE R/T DEHYDRATION YEARS AGO; History of Any Multi-Drug Resistant Organisms: None Reported Past Surgical History: Breast Surgery, Cholecystectomy Additional Past Surgical History / Comment(s): D&C; RT BREAST BIOPSIES; port a cath rt chest; rt breast lumpectomy and removal of 9 lymph nodes; rt breast augmentation; port-a-cath removed 12/2019; lt breast reducation 02/05/20; b ilateral mastectomy 10/28/20; Past Anesthesia/Blood Transfusion Reactions: Postoperative Nausea & Vomiting (PONV) Past Psychological History: Depression Smoking Status: Never smoker Past Alcohol Use History: None Reported Past Drug Use History: None Reported - Past Family History Mother Family Medical History: No Reported History Additional Family Medical History / Comment(s): chronic bronchitis with partial lung removal Father Family Medical History: Diabetes Mellitus Additional Family Medical History / Comment(s): type 2 Medications and Allergies Home Medications Medication Instructions Recorded Confirmed Type lisinopriL 20 mg PO HS 12/06/18 02/02/21 History Anastrozole [Arimidex] 1 mg PO HS 08/31/19 02/02/21 History Cholecalciferol [Vitamin D3 (25 50 mcg PO HS 08/31/19 02/02/21 History Mcg = 1000 Iu)] Acetaminophen [Tylenol Extra 1,000 mg PO QID PRN 01/03/20 02/02/21 History Strength] Alendronate Sodium 70 mg PO JIMENEZ 02/14/20 02/02/21 History Omeprazole 40 mg PO DAILY PRN 06/26/20 02/02/21 History Allergies Allergy/AdvReac Type Severity Reaction Status Date / Time adhesive tape Allergy Rash/Hives Verified 02/02/21 12:07 amlodipine Allergy Swelling Verified 02/02/21 12:07 ciprofloxacin [From Cipro] Allergy Swelling Verified 02/02/21 12:07 Knees & Ankles Latex, Natural Rubber Allergy Rash/Hives Verified 02/02/21 12:07 citalopram AdvReac Hallucinati Verified 02/02/21 12:07 ons/Nightma res diphenhydramine AdvReac Nausea & Verified 02/02/21 12:07 [From Benadryl] Vomiting doxycycline AdvReac Vomiting/Kidney Verified 02/02/21 12:07 Failure hydrochlorothiazide AdvReac Vomiting/Kidney Verified 02/02/21 12:07 [From Dyazide] Failure triamterene [From Dyazide] AdvReac Vomiting/Kidney Verified 02/02/21 12:07 Failure Surgical - Exam Vital Signs Temp Pulse Resp BP Pulse Ox 99.0 F 87 18 114/71 96 02/02/21 09:46 02/02/21 09:46 02/02/21 09:46 02/02/21 09:46 02/02/21 09:46 BMI 30.5 - General no distress - Eyes normal ocular movement - ENT no hearing loss - Neck no masses, trachea midline - Respiratory normal respiratory effort, clear to auscultation - Cardiovascular Rhythm: regular Heart Sounds: normal: S1, S2 - Integumentary Cellulitis along incision right chest wall Lateral aspect of the chest wall question of an area of pustule Seroma Results Ultrasound results reviewed - Labs 02/03/21 06:45 02/03/21 06:45 Abnormal Lab Results - Last 24 Hours (Table) 02/02/21 02/03/21 Range/Units 11:03 06:45 RBC 3.35 L (3.80-5.40) m/uL Hgb 10.5 L (11.4-16.0) gm/dL Hct 31.4 L (34.0-46.0) % Lymphocytes # 0.6 L (1.0-4.8) k/uL Procalcitonin 0.14 H (0.02-0.09) ng/mL Microbiology - Last 24 Hours (Table) 02/02/21 11:03 Blood Culture - Preliminary Blood No Growth after 24 hours 02/02/21 11:03 Blood Culture - Preliminary Blood No Growth after 24 hours Diabetes panel 02/03/21 Range/Units 06:45 Creatinine 0.77 (0.52-1.04) mg/dL Pituitary panel 02/03/21 Range/Units 06:45 Creatinine 0.77 (0.52-1.04) mg/dL Adrenal panel 02/03/21 Range/Units 06:45 Creatinine 0.77 (0.52-1.04) mg/dL Assessment and Plan Assessment: Impression: 1. 65-year-old white female status post bilateral mastectomy with right breast radiation admitted with cellulitis/infected seroma 2. History of hypertension 3. History of right breast breast cancer, no evidence of metastatic disease at this time 4. History of depression 5. History of arthritis Plan: 1. Aspiration seroma and cultures to be obtained 2. Consider radiology to place a drain as possible review ultrasound with radiology 3. Continue IV antibiotics 4. Medical management of medical conditions If the seroma is unable to be aspirated secondary to septations by radiology may be necessary to do open surgical drainage. I would much prefer not to open this as this is radiated tissue and may have difficulty with wound healing. Seroma aspiration performed at bedside: Following informed consent the area of concern was prepped using alcohol. An 18-gauge needle on a 50 mL syringe was inserted into the area of fluctuance. 53 mL of turbid fluid was obtained. The fluid is being sent for cultures. Although the seroma was decreased in size and was not completely drained.
--- NOTE | 2021-02-03 19:53 | US ---
EXAMINATION TYPE: US guided soft tissue drainage DATE OF EXAM: 02/03/2021 HISTORY: Seroma right anterior chest FINDINGS: Maximal barrier technique was utilized. The skin overlying a suitable path to the fluid wa s localized with ultrasound and the overlying skin prepped and draped. Lidocaine was used for local anesthesia. A skin iris made with a scalpel. Access was gained under direct ultrasound guidance to the fluid with a 21-gauge needle. Ultrasound was utilized using sterile technique. A 0.018 inch wire was advanced. Access site was dilated and an 8-Arabic catheter advanced into the seroma. Cloudy se nancy fluid returned. Catheter fixed to the skin. Hemostasis achieved. No immediate complication an d the patient remained in stable condition. IMPRESSION: STATUS POST ULTRASOUND GUIDED SEROMA DRAINAGE, THIS PROCEDURE WAS PERFORMED BY THE UNDERS IGNED. Specimen sent for laboratory analysis.
[2021-02-03] MEDS: ANASTROZOLE 1 MG TAB PO SCH (20:58)
[2021-02-03] MEDS: lisinopriL 10 MG TAB PO SCH (21:11)
--- NOTE | 2021-02-03 23:27 | P.PN ---
Progress Note - Text Progress Note Date: 02/03/21 Chief Complaint: Right chest wall swelling tenderness History of presenting complaint: This is a very pleasant 65-year-old patient of Dr. Lopez. Chronic stable medical conditions include GERD, hypertension, osteoarthritis. Patient had breast cancer 2019 finish chemotherapy in June 2019. Patient had a right breast lumpectomy and radiation therapy while reduction mammoplasty approach. She also underwent a symmetric left breast reduction mammoplasty. She was noted to have some fullness in the right breast and a core biopsy showed recurrent right breast cancer. Metastatic workup was negative. 10/28/2020: bilateral mastectomy. Since the surgery she's had at least 5 episodes of seroma that was drained by Dr. Cristóbal jurado About 3-4 days ago patient started having increasing redness in the right chest fall. Fevers. Painful. Lump appeared. Patient is a poor appetite. She was been up to 102. Decided to come in. Dr. Cristóbal Jurado was informed. Patient was started on IV cefepime and vancomycin. Admitted February 03: Salter patient this morning. Requesting a diet to be changed to regular. Blood pressure running on the lower side. URIAH inhibitor discontinued. IV fluids. Tenderness at the chest wall site. Late in the day turbid colored fluid was drained by Dr. Cristóbal Jurado. Review of systems: Was done for constitutional, cardiovascular, GI, pulmonary. relevant finding as above Active Medications Acetaminophen (Acetaminophen Tab 500 Mg Tab) 1,000 mg PO QID PRN PRN Reason: Pain Al Hydroxide/Mg Hydroxide (Mag Hydrox/Al Hydrox/Simeth 30 Ml Cup) 15 ml PO Q6HR PRN PRN Reason: Indigestion Anastrozole (Anastrozole 1 Mg Tab) 1 mg PO HS [facility] Last Admin: 02/03/21 20:58 Dose: 1 mg Documented by: Calcium Carbonate/Glycine (Calcium Carbonate 500 Mg Chewable) 1,000 mg PO Q4HR PRN PRN Reason: Dyspepsia Enoxaparin Sodium (Enoxaparin 40 Mg/0.4 Ml Syringe) 40 mg SQ DAILY [facility] Last Admin: 02/03/21 08:47 Dose: Not Given Documented by: Cefepime HCl 1 gm/ Sodium (Chloride) 50 mls @ 12.5 mls/hr IVPB Q12HR [facility] Last Admin: 02/03/21 20:58 Dose: 12.5 mls/hr Documented by: Vancomycin HCl 1,250 mg/ (Sodium Chloride) 250 mls @ 125 mls/hr IVPB Q16H [facility] Last Admin: 02/03/21 20:58 Dose: 125 mls/hr Documented by: Sodium Chloride (Saline 0.9%) 1,000 mls @ 75 mls/hr IV .[id number] [facility] Last Admin: 02/03/21 08:53 Dose: 75 mls/hr Documented by: Lactulose (Lactulose 20 Gm/30 Ml Cup) 20 gm PO DAILY PRN PRN Reason: Constipation Lisinopril (Lisinopril 10 Mg Tab) 10 mg PO HS [facility] Last Admin: 02/03/21 21:11 Dose: Not Given Documented by: Magnesium Hydroxide (Magnesium Hydroxide 2,400 Mg/10 Ml Cup) 2,400 mg PO DAILY PRN PRN Reason: Constipation Melatonin (Melatonin 3 Mg Tablet) 3 mg PO HS PRN PRN Reason: Insomnia Naloxone HCl (Naloxone 0.4 Mg/Ml 1 Ml Vial) 0.2 mg IV Q2M PRN PRN Reason: Opioid Reversal Naproxen (Naproxen 250 Mg Tab) 250 mg PO TID [facility] Last Admin: 02/03/21 21:23 Dose: 250 mg Documented by: Ondansetron HCl (Ondansetron 4 Mg/2 Ml Vial) 4 mg IVP Q8HR PRN PRN Reason: Nausea And Vomiting Pantoprazole Sodium (Pantoprazole 40 Mg Tablet) 40 mg PO AC-BID [facility] Last Admin: 02/03/21 15:41 Dose: 40 mg Documented by: Temazepam (Temazepam 15 Mg Cap) 15 mg PO HS PRN PRN Reason: Insomnia Past medical history to include: GERD, hypertension, osteoarthritis, breast cancer treated with chemo and radiation. Recurrent mastectomy site seroma Social history: Lives with her daughter. No history of smoking or alcohol. Family history: Reviewed, noncontributory to presentation Physical examination: VITAL SIGNS: 98.3, 95, 16, 117/81, 96% room air GENERAL: Sitting up in a chair, awake EYES: Pupils equal. Conjunctiva normal. HEENT: External appearance of nose and ears normal, oral cavity grossly normal. Female pattern hair loss NECK: JVD not raised; masses not palpable. HEART: First and second heart sounds are normal; no edema. LUNGS: Respiratory rate normal; clear to auscultation. ABDOMEN: Soft, nontender, liver spleen not palpable, no masses palpable. PSYCH: Alert and oriented x3; mood and affect normal. CHEST wall: Right site: 8 of extensive redness at the mastectomy site and around and sensation. There is a lump at the anterior axillary line. Rather tender, questionable fluctuant MUSCULAR skeletal: Evidence of OA in the hands INVESTIGATIONS, reviewed in the clinical context: February 03: WBC 7.8 hemoglobin 10.5 creatinine 0.77 Pro-calcitonin 0.14 WBC 10.2 hemoglobin 11.8 platelets 240 potassium 4.4 BUN 14 creatinine 0.87 Right breast ultrasound: 9.9 cm septated collection dowling along the right breast postsurgical scar. EKG tracing personally reviewed by me: Normal sinus rhythm Check stat x-ray film personally reviewed by me: Lung mathews clear Assessment and plan: -Area of tender-Fluid collection at the right mastectomy site. Patient's had at least 5 seroma was drained. Turbid colored fluid was drained today. Continue IV cefepime, vancomycin -Acute cellulitis on the right chest wall at the mastectomy site -Obesity BMI 30.7 Weight loss measures and follow-up with PCP as an outpatient -GERD Continue with PPI -Essential hypertension Discontinue lisinopril: Blood pressure running low -Primary osteoarthritis Tylenol as needed -Elevated LFTs.: New diagnosis Check acute hepatitis panel. Liver ultrasound Continue IV cefepime, IV vancomycin. Other medications to continue.. Liver ultrasound. Repeat CMP.
[2021-02-04] MEDS: SODIUM CHLORIDE 0.9% 1,000 ML IV SCH ×3 (01:30→13:28)
[2021-02-04 06:33] LABS: Albumin 2.5 g/dL (3.5-5.0); Calcium 8.1 mg/dL (8.4-10.2); Potassium 4.2 mmol/L (3.5-5.1); Total Bilirubin 0.2 mg/dL (0.2-1.3); Total Protein 4.9 g/dL (6.3-8.2)
--- NOTE | 2021-02-04 08:58 | US ---
EXAMINATION TYPE: US abdomen limited DATE OF EXAM: 02/04/2021 COMPARISON: CT 09/12/2020 CLINICAL HISTORY: Elevated LFT. Very difficult and limited exam due to patient body habitus and overl lisa bowel EXAM MEASUREMENTS: Liver Length: 13.1 cm Gallbladder Wall: Surgically absent CBD: 0.4 cm Right Kidney: 9.5 x 4.6 x 4.5 cm Pancreas: Obscured by bowel gas Liver: Obscured by overlying bowel gas, visualized portions appear wnl Gallbladder: Surgically absent Evidence for sonographic Linder's sign: No CBD: wnl Right Kidney: No hydronephrosis or masses seen IMPRESSION: Surgically absent gallbladder. No definite sonographic abnormality in this limited examination.
[2021-02-04] MEDS: NAPROXEN 250 MG TAB PO SCH ×3 (09:22→21:33)
[2021-02-04] MEDS: PANTOPRAZOLE 40 MG TABLET PO SCH ×2 (09:22→17:00)
[2021-02-04] MEDS: ENOXAPARIN 40 MG/0.4 ML SYRINGE SQ SCH (09:23)
[2021-02-04] MEDS: CEFEPIME 1 GM in SODIUM CHLORIDE 0.9% 50 ML IVPB SCH ×2 (09:23→20:34)
--- NOTE | 2021-02-04 12:45 | P.PN ---
Subjective Progress Note Date: 02/04/21 Principal diagnosis: Cellulitis right chest wall Leslye is a 65-year-old white female admitted with right chest wall cellulitis/seroma. Yesterday approximately 53 mL of turbid fluid was drained from the seroma site and sent for culture. Gram stain revealed multiple gram-p ositive cocci. LFTs noted to be elevated. AST 143 down to 42, a LT 186 down to 109, alk phos elevated at 234. An ultrasound of the abdomen was nondiagnostic. She does have surgically absent gallbladder. White count 7.8, hemoglobin 10.5. She is afebrile at this time and IV antibiotics. Interventional radiology placed a drain at the seroma site. Patient is clinically doing well. Objective - Vital Signs Vital signs: Vital Signs Temp 98.1 F 02/04/21 08:00 Pulse 92 02/04/21 08:00 Resp 18 02/04/21 08:00 BP 142/83 02/04/21 08:00 Pulse Ox 98 02/04/21 08:00 Intake & Output 02/03/21 02/04/21 02/04/21 18:59 06:59 18:59 Output Total 160 70 Balance -160 -70 Output: Drainage 160 70 Right Chest 160 70 Other: Voiding Method Toilet # Voids 1 - Constitutional General appearance: Present: cooperative - EENT Eyes: Present: EOMI ENT: Present: hearing grossly normal - Neck Neck: Present: normal ROM - Respiratory Respiratory: bilateral: CTA - Cardiovascular Heart sounds: normal: S1, S2 - Integumentary Integumentary Comment(s): Right chest wall mastectomy site decreased erythema Interventional radiologist has placed a drain this is in place and fluid draining this is serous in nature - Psychiatric Psychiatric: Present: A&O x's 3, appropriate affect, intact judgment & insight - Labs CBC & Chem 7: 02/03/21 06:45 02/04/21 05:53 Labs: Abnormal Lab Results - Last 24 Hours (Table) 02/04/21 Range/Units 05:53 Chloride 111 H (98-107) mmol/L Glucose 104 H (74-99) mg/dL Calcium 8.1 L (8.4-10.2) mg/dL AST 42 H (14-36) U/L ALT 109 H (4-34) U/L Alkaline Phosphatase 234 H (38-126) U/L Total Protein 4.9 L (6.3-8.2) g/dL Albumin 2.5 L (3.5-5.0) g/dL Microbiology - Last 24 Hours (Table) 02/03/21 11:50 Gram Stain - Preliminary Breast - Right Wound Culture - Preliminary 02/03/21 11:50 Anaerobic Culture - Preliminary Breast - Right 02/02/21 11:03 Blood Culture - Preliminary Blood No Growth after 24 hours 02/02/21 11:03 Blood Culture - Preliminary Blood No Growth after 24 hours Assessment and Plan Assessment: Impression: 1. 65-year-old white female status post bilateral mastectomy with right breast radiation admitted with cellulitis/infected seroma 2. History of hypertension 3. History of right breast breast cancer, no evidence of metastatic disease at this time 4. History of depression 5. History of arthritis Plan: 1. Aspiration seroma and cultures to be obtained/drain in place as per interventional radiology 2. Continue IV antibiotics 3. Continue to follow elevated liver function test 4. Possible discharge home tomorrow
[2021-02-04] MEDS: VANCOMYCIN 1,250 MG in SODIUM CHLORIDE 0.9% 250 ML IVPB SCH (13:26)
[2021-02-04 16:26] LABS: Hepatitis B Core IgM Non-Reactive (Non-Reactive); Hepatitis B Surface Antigen Non-Reactive (Non-Reactive); Hepatitis C IgG Antibody Non-Reactive (Non-Reactive)
--- NOTE | 2021-02-04 18:01 | P.PN ---
Progress Note - Text Progress Note Date: 02/04/21 Chief Complaint: Right chest wall swelling tenderness History of presenting complaint: This is a very pleasant 65-year-old patient of Dr. Lopez. Chronic stable medical conditions include GERD, hypertension, osteoarthritis. Patient had breast cancer 2019 finish chemotherapy in June 2019. Patient had a right breast lumpectomy and radiation therapy while reduction mammoplasty approach. She also underwent a symmetric left breast reduction mammoplasty. She was noted to have some fullness in the right breast and a core biopsy showed recurrent right breast cancer. Metastatic workup was negative. 10/28/2020: bilateral mastectomy. Since the surgery she's had at least 5 episodes of seroma that was drained by Dr. Cristóbal jurado About 3-4 days ago patient started having increasing redness in the right chest fall. Fevers. Painful. Lump appeared. Patient is a poor appetite. She was been up to 102. Decided to come in. Dr. Cristóbal Jurado was informed. Patient was started on IV cefepime and vancomycin. Admitted February 03: Saw patient this morning. Requesting a diet to be changed to regular. Blood pressure running on the lower side. URIAH inhibitor discontinued. IV fluids. Tenderness at the chest wall site. Late in the day turbid colored fluid was drained by Dr. Cristóbal Jurado. February 04: Some pain at this cellulitis/abscess site. Decreased redness within the skin marking area. Oral intake fair. A drain was placed by interventional radiology yesterday. He got whitish yellow substance. Warm compress ordered. Discussed with the patient Review of systems: Was done for constitutional, cardiovascular, GI, pulmonary. relevant finding as above Active Medications Acetaminophen (Acetaminophen Tab 500 Mg Tab) 1,000 mg PO QID PRN PRN Reason: Pain Al Hydroxide/Mg Hydroxide (Mag Hydrox/Al Hydrox/Simeth 30 Ml Cup) 15 ml PO Q6HR PRN PRN Reason: Indigestion Anastrozole (Anastrozole 1 Mg Tab) 1 mg PO HS [facility] Last Admin: 02/03/21 20:58 Dose: 1 mg Documented by: Calcium Carbonate/Glycine (Calcium Carbonate 500 Mg Chewable) 1,000 mg PO Q4HR PRN PRN Reason: Dyspepsia Enoxaparin Sodium (Enoxaparin 40 Mg/0.4 Ml Syringe) 40 mg SQ DAILY [facility] Last Admin: 02/04/21 09:23 Dose: 40 mg Documented by: Cefepime HCl 1 gm/ Sodium (Chloride) 50 mls @ 12.5 mls/hr IVPB Q12HR [facility] Last Admin: 02/04/21 09:23 Dose: 12.5 mls/hr Documented by: Vancomycin HCl 1,250 mg/ (Sodium Chloride) 250 mls @ 125 mls/hr IVPB Q16H [facility] Last Admin: 02/04/21 13:26 Dose: 125 mls/hr Documented by: Sodium Chloride (Saline 0.9%) 1,000 mls @ 75 mls/hr IV .[id number] [facility] Last Admin: 02/04/21 13:28 Dose: 75 mls/hr Documented by: Lactulose (Lactulose 20 Gm/30 Ml Cup) 20 gm PO DAILY PRN PRN Reason: Constipation Lisinopril (Lisinopril 10 Mg Tab) 10 mg PO HS [facility] Last Admin: 02/03/21 21:11 Dose: Not Given Documented by: Magnesium Hydroxide (Magnesium Hydroxide 2,400 Mg/10 Ml Cup) 2,400 mg PO DAILY PRN PRN Reason: Constipation Melatonin (Melatonin 3 Mg Tablet) 3 mg PO HS PRN PRN Reason: Insomnia Miscellaneous Information (Vancomycin Trough Due 1 Each Misc) 0 each MISCELLANE DIRECTED ONE Stop: 02/05/21 04:01 Naloxone HCl (Naloxone 0.4 Mg/Ml 1 Ml Vial) 0.2 mg IV Q2M PRN PRN Reason: Opioid Reversal Naproxen (Naproxen 250 Mg Tab) 250 mg PO TID [facility] Last Admin: 02/04/21 17:00 Dose: 250 mg Documented by: Ondansetron HCl (Ondansetron 4 Mg/2 Ml Vial) 4 mg IVP Q8HR PRN PRN Reason: Nausea And Vomiting Pantoprazole Sodium (Pantoprazole 40 Mg Tablet) 40 mg PO AC-BID [facility] Last Admin: 02/04/21 17:00 Dose: 40 mg Documented by: Temazepam (Temazepam 15 Mg Cap) 15 mg PO HS PRN PRN Reason: Insomnia Past medical history to include: GERD, hypertension, osteoarthritis, breast cancer treated with chemo and radiation. Recurrent mastectomy site seroma Social history: Lives with her daughter. No history of smoking or alcohol. Family history: Reviewed, noncontributory to presentation Physical examination: VITAL SIGNS: 98.1, 92, 18, 142/83, 98% room air GENERAL: Sitting up in a chair, awake EYES: Pupils equal. Conjunctiva normal. HEENT: External appearance of nose and ears normal, oral cavity grossly normal. Female pattern hair loss NECK: JVD not raised; masses not palpable. HEART: First and second heart sounds are normal; no edema. LUNGS: Respiratory rate normal; clear to auscultation. ABDOMEN: Soft, nontender, liver spleen not palpable, no masses palpable. PSYCH: Alert and oriented x3; mood and affect normal. CHEST wall: Right site: Localized tenderness present. Some improvement in area of redness. MUSCULAR skeletal: Evidence of OA in the hands INVESTIGATIONS, reviewed in the clinical context: February 04: Potassium 4.2 creatinine 0.89 AST 42 ALT 109 Acute hepatitis panel: Negative Wound culture: Presumptive staph aureus Liver ultrasound: Obscured by overlying bowel gas view of the liver. February 03: WBC 7.8 hemoglobin 10.5 creatinine 0.77 Pro-calcitonin 0.14 WBC 10.2 hemoglobin 11.8 platelets 240 potassium 4.4 BUN 14 creatinine 0.87 Right breast ultrasound: 9.9 cm septated collection dowling along the right breast postsurgical scar. EKG tracing personally reviewed by me: Normal sinus rhythm Check stat x-ray film personally reviewed by me: Lung mathews clear Assessment and plan: -Abscess at the right mastectomy site. Patient's had at least 5 seroma was drained. Presumptive staph aureus Drain placed by interventional radiology. On IV cefepime, vancomycin -Acute cellulitis on the right chest wall at the mastectomy site IV antibiotics -Obesity BMI 30.7 Weight loss measures and follow-up with PCP as an outpatient -GERD Continue with PPI -Essential hypertension Discontinue lisinopril: Blood pressure running low. Follow closely -Primary osteoarthritis Tylenol as needed -Acute hepatitis due to infection. Improving Liver ultrasound-nonspecific. Acute hepatitis panel negative Continue IV cefepime, IV vancomycin. Other medications to continue.. Warm compress to the area of cellulitis every 4. Follow with surgery. Discussed with the patient.
[2021-02-04] MEDS: lisinopriL 10 MG TAB PO SCH (20:35)
[2021-02-04] MEDS: ANASTROZOLE 1 MG TAB PO SCH (20:35)
[2021-02-05] MEDS: SODIUM CHLORIDE 0.9% 1,000 ML IV SCH ×2 (00:45→17:34)
[2021-02-05] MEDS ORDERED: VANCOMYCIN TROUGH DUE 1 EACH MISC MISCELLANE ONE (04:00)
[2021-02-05] MEDS: VANCOMYCIN 1,250 MG in SODIUM CHLORIDE 0.9% 250 ML IVPB SCH ×2 (05:31→20:59)
[2021-02-05] MEDS: PANTOPRAZOLE 40 MG TABLET PO SCH ×2 (06:22→17:33)
[2021-02-05] MEDS: NAPROXEN 250 MG TAB PO SCH ×3 (09:29→20:59)
[2021-02-05] MEDS: CEFEPIME 1 GM in SODIUM CHLORIDE 0.9% 50 ML IVPB SCH (09:29)
[2021-02-05] MEDS: ENOXAPARIN 40 MG/0.4 ML SYRINGE SQ SCH (09:30)
--- NOTE | 2021-02-05 10:09 | P.PN ---
Subjective Progress Note Date: 02/05/21 Principal diagnosis: Cellulitis right chest wall improved Leslye is a 65-year-old white female admitted with right chest wall cellulitis/seroma. The area of erythema has improved on IV antibiotics. She is afebrile. She has serous drainage approximately 20 mL from catheter placed by interventional radiology with no evidence of recurrent seroma. Objective - Vital Signs Vital signs: Vital Signs Temp 98.1 F 02/05/21 08:00 Pulse 78 02/05/21 08:00 Resp 18 02/05/21 08:00 BP 130/82 02/05/21 08:00 Pulse Ox 99 02/05/21 08:00 Intake & Output 02/04/21 02/05/21 02/05/21 18:59 06:59 18:59 Output Total 40 20 Balance -40 -20 Output: Drainage 40 20 Right Chest 40 20 Other: Voiding Method Toilet # Voids 2 1 - Constitutional General appearance: Present: cooperative - EENT ENT: Present: hearing grossly normal - Neck Neck: Present: normal ROM - Respiratory Respiratory: bilateral: CTA - Cardiovascular Heart sounds: normal: S1, S2 - Integumentary Integumentary Comment(s): Right chest wall markedly decreased erythema No evidence of recurrent seroma Drain in place/drainage is serous in nature - Labs CBC & Chem 7: 02/03/21 06:45 02/04/21 05:53 Labs: Microbiology - Last 24 Hours (Table) 02/03/21 11:50 Gram Stain - Preliminary Breast - Right Wound Culture - Preliminary Presumptive Staph aureus 02/02/21 11:03 Blood Culture - Preliminary Blood No Growth after 48 hours 02/02/21 11:03 Blood Culture - Preliminary Blood No Growth after 48 hours Assessment and Plan Assessment: Impression: 1. 65-year-old white female status post bilateral mastectomy with right breast radiation admitted with cellulitis/infected seroma 2. History of hypertension 3. History of right breast breast cancer, no evidence of metastatic disease at this time 4. History of depression 5. History of arthritis Plan: 1. Aspiration seroma and cultures obtained/drain in place as per interventional radiology; this likely consistent with staph organism 2. Continue to follow elevated liver function test 3. Teach patient drain care 4. Probable discharge home with oral antibiotics 5. Follow-up with Dr. Butler next week/follow up sooner if any questions or concerns
[2021-02-05 18:10] LABS: Hepatitis A Antibody IgM Non-Reactive (Non-Reactive)
--- NOTE | 2021-02-05 18:14 | P.PN ---
Progress Note - Text Progress Note Date: 02/05/21 Chief Complaint: Right chest wall swelling tenderness History of presenting complaint: This is a very pleasant 65-year-old patient of Dr. Lopez. Chronic stable medical conditions include GERD, hypertension, osteoarthritis. Patient had breast cancer 2019 finish chemotherapy in June 2019. Patient had a right breast lumpectomy and radiation therapy while reduction mammoplasty approach. She also underwent a symmetric left breast reduction mammoplasty. She was noted to have some fullness in the right breast and a core biopsy showed recurrent right breast cancer. Metastatic workup was negative. 10/28/2020: bilateral mastectomy. Since the surgery she's had at least 5 episodes of seroma that was drained by Dr. Cristóbal jurado About 3-4 days ago patient started having increasing redness in the right chest fall. Fevers. Painful. Lump appeared. Patient is a poor appetite. She was been up to 102. Decided to come in. Dr. Cristóbal Jurado was informed. Patient was started on IV cefepime and vancomycin. Admitted February 03: Saw patient this morning. Requesting a diet to be changed to regular. Blood pressure running on the lower side. URIAH inhibitor discontinued. IV fluids. Tenderness at the chest wall site. Late in the day turbid colored fluid was drained by Dr. Cristóbal Jurado. February 04: Some pain at this cellulitis/abscess site. Decreased redness within the skin marking area. Oral intake fair. A drain was placed by interventional radiology yesterday. He got whitish yellow substance. Warm compress ordered. Discussed with the patient February 05: Pain and redness better. Still putting out a significant no drainage. Culture showing staph aureus. Oral intake fair. Review of systems: Was done for constitutional, cardiovascular, GI, pulmonary. relevant finding as above Active Medications Acetaminophen (Acetaminophen Tab 500 Mg Tab) 1,000 mg PO QID PRN PRN Reason: Pain Al Hydroxide/Mg Hydroxide (Mag Hydrox/Al Hydrox/Simeth 30 Ml Cup) 15 ml PO Q6HR PRN PRN Reason: Indigestion Anastrozole (Anastrozole 1 Mg Tab) 1 mg PO HS [facility] Last Admin: 02/04/21 20:35 Dose: 1 mg Documented by: Calcium Carbonate/Glycine (Calcium Carbonate 500 Mg Chewable) 1,000 mg PO Q4HR PRN PRN Reason: Dyspepsia Enoxaparin Sodium (Enoxaparin 40 Mg/0.4 Ml Syringe) 40 mg SQ DAILY [facility] Last Admin: 02/05/21 09:30 Dose: Not Given Documented by: Cefepime HCl 1 gm/ Sodium (Chloride) 50 mls @ 12.5 mls/hr IVPB Q12HR [facility] Last Admin: 02/05/21 09:29 Dose: 12.5 mls/hr Documented by: Vancomycin HCl 1,250 mg/ (Sodium Chloride) 250 mls @ 125 mls/hr IVPB Q16H [facility] Last Admin: 02/05/21 05:31 Dose: 125 mls/hr Documented by: Sodium Chloride (Saline 0.9%) 1,000 mls @ 75 mls/hr IV .[id number] [facility] Last Admin: 02/05/21 17:34 Dose: 75 mls/hr Documented by: Lactulose (Lactulose 20 Gm/30 Ml Cup) 20 gm PO DAILY PRN PRN Reason: Constipation Lisinopril (Lisinopril 10 Mg Tab) 10 mg PO HS [facility] Last Admin: 02/04/21 20:35 Dose: 10 mg Documented by: Magnesium Hydroxide (Magnesium Hydroxide 2,400 Mg/10 Ml Cup) 2,400 mg PO DAILY PRN PRN Reason: Constipation Melatonin (Melatonin 3 Mg Tablet) 3 mg PO HS PRN PRN Reason: Insomnia Naloxone HCl (Naloxone 0.4 Mg/Ml 1 Ml Vial) 0.2 mg IV Q2M PRN PRN Reason: Opioid Reversal Naproxen (Naproxen 250 Mg Tab) 250 mg PO TID [facility] Last Admin: 02/05/21 16:31 Dose: 250 mg Documented by: Ondansetron HCl (Ondansetron 4 Mg/2 Ml Vial) 4 mg IVP Q8HR PRN PRN Reason: Nausea And Vomiting Pantoprazole Sodium (Pantoprazole 40 Mg Tablet) 40 mg PO AC-BID [facility] Last Admin: 02/05/21 17:33 Dose: 40 mg Documented by: Temazepam (Temazepam 15 Mg Cap) 15 mg PO HS PRN PRN Reason: Insomnia Past medical history to include: GERD, hypertension, osteoarthritis, breast cancer treated with chemo and radiation. Recurrent mastectomy site seroma Social history: Lives with her daughter. No history of smoking or alcohol. Family history: Reviewed, noncontributory to presentation Physical examination: VITAL SIGNS: 97.7, 74, 18, 120/77, 97% room air GENERAL: Sitting up in a chair, awake EYES: Pupils equal. Conjunctiva normal. HEENT: External appearance of nose and ears normal, oral cavity grossly normal. Female pattern hair loss NECK: JVD not raised; masses not palpable. HEART: First and second heart sounds are normal; no edema. LUNGS: Respiratory rate normal; clear to auscultation. ABDOMEN: Soft, nontender, liver spleen not palpable, no masses palpable. PSYCH: Alert and oriented x3; mood and affect normal. CHEST wall: Right : Localized tenderness present. improvement in area of redness. Drain in place. MUSCULAR skeletal: Evidence of OA in the hands INVESTIGATIONS, reviewed in the clinical context: February 04: Potassium 4.2 creatinine 0.89 AST 42 ALT 109 Acute hepatitis panel: Negative Wound culture: Presumptive staph aureus Liver ultrasound: Obscured by overlying bowel gas view of the liver. February 03: WBC 7.8 hemoglobin 10.5 creatinine 0.77 Pro-calcitonin 0.14 WBC 10.2 hemoglobin 11.8 platelets 240 potassium 4.4 BUN 14 creatinine 0.87 Right breast ultrasound: 9.9 cm septated collection dowling along the right breast postsurgical scar. EKG tracing personally reviewed by me: Normal sinus rhythm Check stat x-ray film personally reviewed by me: Lung mathews clear Assessment and plan: -Abscess at the right mastectomy site. Patient's had at least 5 seroma was drained. Presumptive staph aureus Drain placed by interventional radiology. On IV cefepime, vancomycin -Acute cellulitis on the right chest wall at the mastectomy site IV antibiotics -Obesity BMI 30.7 Weight loss measures and follow-up with PCP as an outpatient -GERD Continue with PPI -Essential hypertension Discontinue lisinopril: Blood pressure running low. Follow closely -Primary osteoarthritis Tylenol as needed -Acute hepatitis due to infection. Improving Liver ultrasound-nonspecific. Acute hepatitis panel negative DC cefepime, IV vancomycin. Other medications to continue.. Discussed with the patient. Awaiting sensitivity. We'll decide final antibiotics tomorrow.
[2021-02-05] MEDS: lisinopriL 10 MG TAB PO SCH (20:59)
[2021-02-05] MEDS: ANASTROZOLE 1 MG TAB PO SCH (21:00)
[2021-02-06] MEDS: PANTOPRAZOLE 40 MG TABLET PO SCH (06:09)
[2021-02-06 07:13] LABS: Basophils % (A) 1 %; Eosinophils # (A) 0.1 k/uL (0-0.7); Eosinophils % (A) 1 %; HCT 32.7 % (34.0-46.0); HGB 10.3 gm/dL (11.4-16.0); Lymphocytes # (A) 0.7 k/uL (1.0-4.8); Lymphocytes % (A) 13 %; MCHC 31.6 g/dL (31.0-37.0); Mean Platelet Volume 8.8; Monocytes # (A) 0.3 k/uL (0-1.0); Monocytes % (A) 7 %; Neutrophils # (A) 3.8 k/uL (1.3-7.7); Neutrophils % (A) 76 %; Platelet Count 250 k/uL (150-450); RBC 3.44 m/uL (3.80-5.40); RDW 13.5 % (11.5-15.5)
[2021-02-06 07:22] LABS: African American GFR (CKD) >90 (>60 ml/min/1.73 sqM); Non-African American GFR(CKD) >90 (>60 ml/min/1.73 sqM)
[2021-02-06] MEDS: NAPROXEN 250 MG TAB PO SCH (08:28)
[2021-02-06] MEDS: ENOXAPARIN 40 MG/0.4 ML SYRINGE SQ SCH (08:29)
[2021-02-06 08:50] VITALS: BP 139/81; PULSE 99; RESP 18; TEMP 98
--- NOTE | 2021-02-06 15:09 | P.DS ---
Providers Date of admission: 02/02/21 12:03 Expected date of discharge: 02/06/21 Attending physician: Miguel Simmons Consults: 02/02/21 12:03 Consult Physician Routine Consulting Provider: Simran Shirley Consult Reason/Comments: infection Do you want consulting provider notified?: Already Contacted Primary care physician: [facility] Course: Chief Complaint: Right chest wall swelling tenderness History of presenting complaint: This is a very pleasant 65-year-old patient of Dr. Lopez. Chronic stable medical conditions include GERD, hypertension, osteoarthritis. Patient had breast cancer 2019 finish chemotherapy in June 2019. Patient had a right breast lumpectomy and radiation therapy while reduction mammoplasty approach. She also underwent a symmetric left breast reduction mammoplasty. She was noted to have some fullness in the right breast and a core biopsy showed recurrent right breast cancer. Metastatic workup was negative. 10/28/2020: bilateral mastectomy. Since the surgery she's had at least 5 episodes of seroma that was drained by Dr. Cristóbal jurado About 3-4 days ago patient started having increasing redness in the right chest fall. Fevers. Painful. Lump appeared. Patient is a poor appetite. She was been up to 102. Decided to come in. Dr. Cristóbal Jurado was informed. Patient was started on IV cefepime and vancomycin. Admitted February 03: Saw patient this morning. Requesting a diet to be changed to regular. Blood pressure running on the lower side. URIAH inhibitor discontinued. IV fluids. Tenderness at the chest wall site. Late in the day turbid colored fluid was drained by Dr. Cristóbal Jurado. February 04: Some pain at this cellulitis/abscess site. Decreased redness within the skin marking area. Oral intake fair. A drain was placed by interventional radiology yesterday. He got whitish yellow substance. Warm compress ordered. Discussed with the patient February 05: Pain and redness better. Still putting out a significant no drainage. Culture showing staph aureus. Oral intake fair. February 06: Patient was seen by Dr. Cristóbal Jurado. Patient be going home with the drainage catheter. Decreased output. Redness swelling is coming down. As a local spot that I squeezed out. No fever no chills. Discussed with the patient. Much better. Now be discharged on Keflex. Discussion and discharge planning more than 35 minutes Consultation: Dr. Cristóbal Jurado from general surgery Interventional radiology Past medical history to include: GERD, hypertension, osteoarthritis, breast cancer treated with chemo and radiation. Recurrent mastectomy site seroma Social history: Lives with her daughter. No history of smoking or alcohol. Family history: Reviewed, noncontributory to presentation Physical examination: VITAL SIGNS: 98, 99, 18, 139/81, 97% room air GENERAL: Sitting up in a chair, awake EYES: Pupils equal. Conjunctiva normal. HEENT: External appearance of nose and ears normal, oral cavity grossly normal. Female pattern hair loss NECK: JVD not raised; masses not palpable. HEART: First and second heart sounds are normal; no edema. LUNGS: Respiratory rate normal; clear to auscultation. ABDOMEN: Soft, nontender, liver spleen not palpable, no masses palpable. PSYCH: Alert and oriented x3; mood and affect normal. CHEST wall: Right : Localized tenderness much improved. improvement in area of redness. Drain in place. MUSCULAR skeletal: Evidence of OA in the hands INVESTIGATIONS, reviewed in the clinical context: February 06: White count 5. In 10.3 creatinine 0.68 Pro-calcitonin 0.07 February 04: Potassium 4.2 creatinine 0.89 AST 42 ALT 109 Acute hepatitis panel: Negative Wound culture: MSSA Liver ultrasound: Obscured by overlying bowel gas view of the liver. February 03: WBC 7.8 hemoglobin 10.5 creatinine 0.77 Pro-calcitonin 0.14 WBC 10.2 hemoglobin 11.8 platelets 240 potassium 4.4 BUN 14 creatinine 0.87 Right breast ultrasound: 9.9 cm septated collection dowling along the right breast postsurgical scar. EKG tracing personally reviewed by me: Normal sinus rhythm Check stat x-ray film personally reviewed by me: Lung mathews clear Assessment and plan: -Abscess at the right mastectomy site. Patient's had at least 5 seroma was drained. Cultures: MSSA Drain placed by interventional radiology. On IV cefepime, vancomycin. Both discontinued. DC home on Keflex 500 mg 4 times a day for 2 weeks -Acute cellulitis on the right chest wall at the mastectomy site: Improving DC on Keflex -Obesity BMI 30.7 Weight loss measures and follow-up with PCP as an outpatient -GERD Continue with PPI -Essential hypertension Lisinopril -Primary osteoarthritis Tylenol as needed -Acute hepatitis due to infection. Improving Liver ultrasound-nonspecific. Acute hepatitis panel negative Disposition: Home Plan - Discharge Summary Discharge Rx Participant: Yes New Discharge Prescriptions: New Cephalexin [Keflex] 500 mg PO Q6HR 1 Days #56 cap Naproxen [Naprosyn] 250 mg PO TID #21 tab Continue lisinopriL 20 mg PO HS Cholecalciferol [Vitamin D3 (25 Mcg = 1000 Iu)] 50 mcg PO HS Anastrozole [Arimidex] 1 mg PO HS Acetaminophen [Tylenol Extra Strength] 1,000 mg PO QID PRN PRN Reason: Pain Alendronate Sodium 70 mg PO JIMENEZ Omeprazole 40 mg PO DAILY PRN PRN Reason: Heartburn Discharge Medication List lisinopriL 20 mg PO HS 12/06/18 [History] Anastrozole [Arimidex] 1 mg PO HS 08/31/19 [History] Cholecalciferol [Vitamin D3 (25 Mcg = 1000 Iu)] 50 mcg PO HS 08/31/19 [History] Acetaminophen [Tylenol Extra Strength] 1,000 mg PO QID PRN 01/03/20 [History] Alendronate Sodium 70 mg PO JIMNEEZ 02/14/20 [History] Omeprazole 40 mg PO DAILY PRN 06/26/20 [History] Cephalexin [Keflex] 500 mg PO Q6HR 1 Days #56 cap 02/06/21 [Rx] Naproxen [Naprosyn] 250 mg PO TID #21 tab 02/06/21 [Rx] Follow up Appointment(s)/Referral(s): Abdon Lopez MD [Primary Care Provider] - 1-2 days Simran Shirley MD [STAFF PHYSICIAN] - 1 Week Patient Instructions/Handouts: MRSA (Methicillin-Resistant Staphylococcus Aureus) (DC), Cellulitis (DC) Activity/Diet/Wound Care/Special Instructions: Drink plenty of fluids. Watch for signs/symptoms of infection. If you develop a fever, area becomes more red, warm to the touch, painful or you have drainage call your doctor immediately. Empty drain as needed, keep a daily journal of how much you empty.
== END 2021-02-06 13:00 | disposition home or self-care (01) | DRG 920 ==
LOC: EC 09:45 → 6PED 12:03
PROVIDERS: ADMIT Hospitalist; ATTEND Hospitalist
PROC: 0J9630Z Drainage of Chest Subcutaneous Tissue and Fascia with Drainage Device, Percutaneous Approach (ICD-10-PCS; principal; 2021-02-03)
DX: L76.34 Postprocedural seroma of skin and subcutaneous tissue following other procedure (principal); L03.313 Cellulitis of chest wall; B17.9 Acute viral hepatitis, unspecified; K21.9 Gastro-esophageal reflux disease without esophagitis; I10 Essential (primary) hypertension; Z85.3 Personal history of malignant neoplasm of breast; Z82.5 Family history of asthma and other chronic lower respiratory diseases; Z83.3 Family history of diabetes mellitus; M19.91 Primary osteoarthritis, unspecified site; Z90.13 Acquired absence of bilateral breasts and nipples; F32.9 Major depressive disorder, single episode, unspecified; Z92.21 Personal history of antineoplastic chemotherapy; Z92.3 Personal history of irradiation; E66.9 Obesity, unspecified; Z68.30 Body mass index [BMI] 30.0-30.9, adult; Z90.49 Acquired absence of other specified parts of digestive tract; Y83.8 Other surgical procedures as the cause of abnormal reaction of the patient, or of later complication, without mention of misadventure at the time of the procedure; Z80.1 Family history of malignant neoplasm of trachea, bronchus and lung; Z80.8 Family history of malignant neoplasm of other organs or systems
CPT/HCPCS: 10030; 36415; 71046; 76705; 76942; 80053; 80074; 80202; 81001; 82565; 83605; 84145; 85025; 85610; 85730; 87040; 87070; 87075; 87077; 87186; 87205; 93005; 99284

== ENCOUNTER → 2021-02-13 | Outpatient (CLI) | payer MEDICARE, OTHER ==
[2021-02-14 03:26] LABS: Albumin 3.9 g/dL (3.80-4.90); Albumin/Globulin Ratio 1.63 (1.60-3.17); Anion Gap 9.5 mmol/L (4.00-12.00); BUN/Creat Ratio 21.25 Ratio (12.00-20.00); Calcium 8.7 mg/dL (8.7-10.3); Carbon Dioxide 23.5 mmol/L (21.6-31.8); Globulin 2.4 g/dL (1.6-3.3); Non-African American GFR(CKD) 76.8 (60.0-200.0); Potassium 4.3 mmol/L (3.5-5.5); Total Bilirubin 0.3 mg/dL (0.2-1.2); Total Protein 6.3 g/dL (6.2-8.2)
== END | disposition home or self-care (01) ==
LOC: LABWHC1 12:11
PROVIDERS: ATTEND Nurse Practitioner Family
DX: R79.89 Other specified abnormal findings of blood chemistry (principal)
CPT/HCPCS: 36415; 80053

== ENCOUNTER → 2021-02-13 | Outpatient (CLI) | payer MEDICARE, OTHER ==
[2021-02-13 11:44] VITALS: BP 137/80; PULSE 81; RESP 16; TEMP 97.9
--- NOTE | 2021-02-13 11:57 | P.PN ---
Subjective Progress Note Date: 02/13/21 Leslye is a 65-year-old white female who initially presented in 2018 with a nodule in her right breast which had been present for approximately 2 years. She was subsequently diagnosed with invasive ductal carcinoma and underwent neoadjuvant chemotherapy. She then underwent a lumpectomy radiation therapy and hormone therapy. She subsequently underwent a left breast reduction mammoplasty for asymmetry. She was doing well until June 2020 with some friable mass was noted in the 12 o'clock position of the right breast. A core biopsy was performed which revealed minute atypical focus suspicious for residual/recurrent invasive carcinoma in a background of scar and fat necrosis with radiation ther apy changes. The specimen was sent to [facility] and it was felt that the concerning focus to represent residual/recurrent invasive carcinoma. The patient therefore opted for bilateral mastectomies which were performed and [id number]. The left breast revealed negative for malignancy. The right breast as well was negative for malignancy. The patient since that time has had seromas aspirated intermittently from the right chest wall. She was doing well until approximately 4 days prior to admission on 02-03-20 when she noted increased erythema and pain on the right chest wall. She presented to the emergency department and was admitted for IV antibiotic therapy. She states that since the antibiotics she is feeling better. She stated at home she did have elevated temperatures to as high as 102. An ultrasound was performed on which revealed along the patient's scar and 9.9 x 3.6 cm septated collection. The drain was placed on . Patient had an drain placed by radiology and is now putting out about 30 CC/day and it is serous in nature. The erythema has largely resolved on the chest wall. She is not having any more fever or chills. Family history: Paternal grandmother: Questionable breast cancer Paternal aunt: Lung cancer smoker Maternal aunt: Brain cancer Hormonal history: Menarche: 10 first child born at 28, press-fit: No Menopause: 50 control pills: 5 years Hormones: None Surgical history: Cholecystectomy D&C Right breast lumpectomy via reduction mammoplasty incision; SNB/left breast reduction mammoplasty Bilateral mastectomy with right axillary node resection Medical history: Hypertension Depression Arthritis Social history: Smoke: Negative Alcohol: Negative Drugs: Negative - Constitutional Constitutional: Reports sweats - EENT Eyes: denies blurred vision, denies pain Ears: deny: decreased hearing, tinnitus Ears, nose, mouth and throat: Denies headache, Denies sore throat - Breasts Breasts: bilateral: as per HPI - Cardiovascular Cardiovascular: Reports high blood pressure - Respiratory Respiratory: Denies cough - Gastrointestinal Gastrointestinal: Denies abdominal pain, Denies diarrhea, Denies nausea, Denies vomiting - Genitourinary (Female) Genitourinary: Denies dysuria, Denies hematuria - Genitourinary (Male) Genitourinary: Denies dysuria, Denies hematuria - Musculoskeletal Comment: Intermittent arthritis in knees - Integumentary Comment: Intermittent folliculitis - Neurological Neurological: Denies numbness, Denies weakness - Psychiatric Psychiatric: Reports depression - Endocrine Endocrine: Reports fatigue - Hematologic/Lymphatic Comment: none - Allergic/Immunologic Allergic/Immunologic: Reports as per HPI Objective - Vital Signs Vital signs: Vital Signs Temp 97.9 F 02/13/21 11:41 Pulse 81 02/13/21 11:41 Resp 16 02/13/21 11:41 BP 137/80 02/13/21 11:41 Pulse Ox 98 02/13/21 11:41 Intake & Output 02/12/21 02/13/21 02/13/21 18:59 06:59 18:59 Weight 78.471 kg - Exam BMI 31.6 - Constitutional General appearance: Present: average body habitus - EENT Eyes: Present: EOMI ENT: Present: hearing grossly normal - Neck Neck: Present: normal ROM - Respiratory Respiratory: bilateral: CTA - Cardiovascular Heart sounds: normal: S1, S2 - Integumentary Integumentary Comment(s): Chest wall decreased erythema Drain is still in place output is serous in nature but approximately 30 mL per day Assessment and Plan Assessment: Impression/plan: 1. Retain drain at this time 2. Continue antibiotics 2. Follow-up next week CC: Dr. Lopez
== END ==
LOC: WWCWWP 11:14
PROVIDERS: ATTEND Surgery
DX: Z48.03 Encounter for change or removal of drains (principal); I10 Essential (primary) hypertension; M19.90 Unspecified osteoarthritis, unspecified site; F32.9 Major depressive disorder, single episode, unspecified; Z79.899 Other long term (current) drug therapy; Z91.048 Other nonmedicinal substance allergy status; Z88.8 Allergy status to other drugs, medicaments and biological substances; Z88.1 Allergy status to other antibiotic agents; Z91.040 Latex allergy status

== ENCOUNTER 2021-02-16 15:21 | Day surgery (SDC) | payer MEDICARE, OTHER ==
[2021-02-16 15:29] VITALS: PULSE 98; RESP 18; TEMP 98.5
[2021-02-16 15:40] VITALS: BP 143/80
== END 2021-02-16 15:51 | disposition home or self-care (01) ==
LOC: RADPROMAIN 15:21
PROVIDERS: ATTEND Radiology Diagnostic Radiology
DX: Z48.03 Encounter for change or removal of drains (principal)
CPT/HCPCS: 99213

== ENCOUNTER → 2021-02-19 | Outpatient (CLI) | payer MEDICARE, OTHER ==
[2021-02-19 10:35] VITALS: BP 143/91; PULSE 94; RESP 18; TEMP 98.2
--- NOTE | 2021-02-19 10:44 | P.PN ---
Subjective Progress Note Date: 02/19/21 Principal diagnosis: [id number]+DC+Her2-G3 right breast cancer Leslye is a 66-year-old white female status post right breast mastectomy 10/28/2020 for a questionable recurrent right breast cancer following a lumpectomy and radiation therapy. Following that she developed a chronic seroma on the right chest wall. She was recently admitted with the infection of the seroma and chest wall cellulitis. At this time she has a drain in place. Output is serosanguineous in nature. It has put out only 25 mL in the last 24 hours. Prior to this the output was as high as 60-80 mL per day. The drainage is serous but does have some stranding in it. She has not had any fever or chills. The erythema has resolved from the chest wall. Objective - Constitutional General appearance: Present: cooperative - EENT Eyes: Present: EOMI ENT: Present: hearing grossly normal - Neck Neck: Present: normal ROM - Respiratory Respiratory: bilateral: CTA - Cardiovascular Heart sounds: normal: S1, S2 - Integumentary Integumentary Comment(s): Incision right chest wall clean and dry cellulitis appears to have resolved Assessment and Plan Assessment: Impression: 1. Resolved cellulitis right chest wall/persistent drainage which appears to be serous in nature with some intermittent tissue stranding Plan: 1. Would keep drain for one more week most likely DC drain next week 2. Continue oral antibiotics, Keflex
== END ==
LOC: WWCWWP 10:18
PROVIDERS: ATTEND Surgery
DX: Z08 Encounter for follow-up examination after completed treatment for malignant neoplasm (principal); Z90.11 Acquired absence of right breast and nipple; Z91.048 Other nonmedicinal substance allergy status; Z88.8 Allergy status to other drugs, medicaments and biological substances; Z88.1 Allergy status to other antibiotic agents; Z91.040 Latex allergy status

== ENCOUNTER → 2021-02-23 | Day surgery (SDC) | payer MEDICARE, OTHER ==
[2021-02-23 16:13] VITALS: BP 149/78; PULSE 64; RESP 16; TEMP 97.9
== END ==
LOC: RADPROMAIN 15:20
PROVIDERS: ATTEND Radiology Diagnostic Radiology
DX: Z43.6 Encounter for attention to other artificial openings of urinary tract (principal)
CPT/HCPCS: 99213

== ENCOUNTER → 2021-02-26 | Outpatient (CLI) | payer MEDICARE, OTHER ==
--- NOTE | 2021-02-26 13:53 | P.PN ---
Progress Note - Text Progress Note Date: 02/26/21 Leslye is a 66-year-old white female status post right breast mastectomy 10/28/2020 for a questionable recurrent right breast cancer following a lumpectomy and radiation therapy. Following that she developed a chronic seroma on the right chest wall. She was recently admitted with the infection of the seroma and chest wall cellulitis. At this time she has a drain in place. Output is serosanguineous in nature. It has put out only approximately 30 mL per 24-hour period for the past week. Prior to this the output was as high as 60-80 mL per day. The drainage is serous but does have some stranding in it. She has not had any fever or chills. The erythema has resolved from the chest wall Physical examination: Lungs: Clear Heart: S1 and S2 Incision: Mild erythema lateral aspect of incision otherwise clean and dry drainage tube in place Impression/Plan: 1. Patient with resolving cellulitis right chest wall 2. drain in place 3. continue present therapy 4. Keflex 500 QID 5. follow up 2 weeks 6. call sooner if any problems
[2021-02-26 13:54] VITALS: BP 117/77; PULSE 106; RESP 16; TEMP 98.1
== END ==
LOC: WWCWWP 13:29
PROVIDERS: ATTEND Surgery
DX: T81.49XA Infection following a procedure, other surgical site, initial encounter (principal); Z91.048 Other nonmedicinal substance allergy status; Z88.1 Allergy status to other antibiotic agents; Z88.8 Allergy status to other drugs, medicaments and biological substances

== ENCOUNTER 2021-03-02 15:13 | Day surgery (SDC) | payer MEDICARE, OTHER ==
[2021-03-02 15:48] VITALS: BP 122/80; PULSE 80; RESP 16; TEMP 98.3
--- NOTE | 2021-03-02 16:03 | US ---
ULTRASOUND SUBCUTANEOUS FLUID COLLECTION WITH TUBE REMOVAL: CLINICAL HISTORY: Malfunctioning tube FINDINGS: Pulmonary ultrasound demonstrated the collection now to be majority organized with numerous septation s. The catheter was seen within a tiny pocket with no sizable fluid collection to drain. Additional s eptated collections are also noted which are small in caliber. The drain was not of any additional be nefit. Area was sterilized the catheter was removed. IMPRESSION: 1. Tube removal.
== END 2021-03-02 16:00 | disposition home or self-care (01) ==
LOC: RADPROMAIN 15:13
PROVIDERS: ATTEND Radiology Diagnostic Radiology
DX: T85.618A Breakdown (mechanical) of other specified internal prosthetic devices, implants and grafts, initial encounter (principal)
CPT/HCPCS: 32552; 76942; G0463; 99213

== ENCOUNTER → 2021-03-13 | Outpatient (CLI) | payer MEDICARE, OTHER ==
[2021-03-13 11:54] VITALS: BP 87/53; PULSE 62; RESP 18; TEMP 98.3
--- NOTE | 2021-03-13 12:47 | P.PN ---
Progress Note - Text Progress Note Date: 03/13/21 Leslye is a 66-year-old white female status post right breast mastectomy 10/28/2020 for a questionable recurrent right breast cancer following a lumpectomy and radiation therapy. Following that she developed a chronic seroma on the right chest wall. She was recently admitted with the infection of the seroma and chest wall cellulitis. The patient had a drain which had been placed by radiology and was removed on . The patient at this time has noticed some mild increased swelling of the area with some areas of purulent nature. She has some mild erythema at the site. Has not had any fever or chills. Patient's microbiology from of hospitalization and previous were reviewed which revealed staph sensitive to Bactrim. Physical examination: Lungs: Clear Heart: S1 and S2 Incision: Mild erythema lateral aspect of incision; small seroma appears to be present, posterolateral aspect of the right chest wall incision Impression/Plan: 1. Incision and drainage of postural right chest wall and seroma 2. Bactrim oral antibiotics 3. Patient instructed to pack area twice a day 4. Follow-up next week CC: Dr. Lopez Procedure: The area of concern on the right breast 2 pustules were prepped using Betadine following informed consent. One percent lidocaine was used to anesthetize the area of concern. 2 areas of pustular formation were identified both of these were opened. Small amount of fluid was obtained and the opening was into the serous cavity for approximately 20 mL of serous fluid which was extracted. The wound was well irrigated. Both areas were packed. The patient tolerated the procedure in stable condition.
== END ==
LOC: WWCWWP 11:32
PROVIDERS: ATTEND Surgery
DX: L76.34 Postprocedural seroma of skin and subcutaneous tissue following other procedure (principal); Z90.11 Acquired absence of right breast and nipple; L03.313 Cellulitis of chest wall; Z91.048 Other nonmedicinal substance allergy status; Z88.1 Allergy status to other antibiotic agents; Z91.040 Latex allergy status; Z88.8 Allergy status to other drugs, medicaments and biological substances

== ENCOUNTER → 2021-03-17 | Outpatient (CLI) | payer MEDICARE, OTHER ==
--- NOTE | 2021-03-17 08:20 | P.PN ---
Progress Note - Text Progress Note Date: 03/17/21 Leslye is a 66-year-old white female status post right breast mastectomy 10/28/2020 for a questionable recurrent right breast cancer following a lumpectomy and radiation therapy. Following that she developed a chronic seroma on the right chest wall. She was recently admitted with the infection of the seroma and chest wall cellulitis. The patient had a drain which had been placed by radiology and was removed on 8620. Last week the area of seroma was drained with open incision and drainage of 2 sites. She has resolution of the erythema which she had in the past at this site. Has not had any fever or chills. At this time she is doing well. The erythema has resolved. She has packing changed daily. Incision: Clean and dry no erythema question of a small pustule starting in the midportion of the inferior aspect of the incision nothing to drain at this time Lungs: Clear Plan: Continue present care Follow-up on Tuesday
[2021-03-17 08:23] VITALS: BP 116/64; PULSE 79; RESP 16; TEMP 98.3
== END ==
LOC: WWCWWP 07:43
PROVIDERS: ATTEND Surgery
DX: L03.313 Cellulitis of chest wall (principal); L76.34 Postprocedural seroma of skin and subcutaneous tissue following other procedure; Z88.1 Allergy status to other antibiotic agents; Z88.8 Allergy status to other drugs, medicaments and biological substances; Z91.040 Latex allergy status; Z91.048 Other nonmedicinal substance allergy status

== ENCOUNTER → 2021-04-03 | Outpatient (CLI) | payer MEDICARE, OTHER ==
[2021-04-03 13:46] VITALS: BP 95/58; PULSE 96; RESP 18; TEMP 98.2
--- NOTE | 2021-04-03 14:22 | P.PN ---
Progress Note - Text Progress Note Date: 04/03/21 Leslye is a 66-year-old white female status post right breast mastectomy 10/28/2020 for a questionable recurrent right breast cancer following a lumpectomy and radiation therapy. Following that she developed a chronic seroma on the right chest wall. She was recently admitted with the infection of the seroma and chest wall cellulitis. The patient had a drain which had been placed by radiology and was removed on 8620. The seroma was drained with open incision and drainage of 2 sites one closed and the second one which is very small and has minimal drainage at this time. The drainage is serous in nature.. She has resolution of the erythema which she had in the past at this site. Has not had any fever or chills. At this time she is doing well. The erythema has resolved. She has packing changed daily. Patient developed a reaction to the sulfa drug which she was on in the past and was seen in the emergency room secondary to multiple hives. These have resolved. At the present time she is not on any antibiotics. Incision: Clean and dry no erythema question of a small pustule starting in the midportion of the inferior aspect of the incision has improved since her last visit nothing to drain at this time; it remains slightly elevated but again there is nothing definitive to drain Lungs: Clear Plan: Continue present care Patient off all antibiotics Follow-up in 2 weeks CC: Dr. Lopez
== END ==
LOC: WWCWWP 13:31
PROVIDERS: ATTEND Surgery
DX: Z09 Encounter for follow-up examination after completed treatment for conditions other than malignant neoplasm (principal); Z90.11 Acquired absence of right breast and nipple; Z91.048 Other nonmedicinal substance allergy status; Z88.1 Allergy status to other antibiotic agents; Z91.040 Latex allergy status; Z88.8 Allergy status to other drugs, medicaments and biological substances; Z88.2 Allergy status to sulfonamides

== ENCOUNTER → 2021-04-17 | Outpatient (CLI) | payer MEDICARE, OTHER ==
[2021-04-17 14:26] VITALS: BP 132/84; PULSE 106; RESP 16; TEMP 98.5
--- NOTE | 2021-04-17 15:09 | P.PN ---
Progress Note - Text Progress Note Date: 04/17/21 Leslye is a 66-year-old white female status post right breast mastectomy 10/28/2020 for a questionable recurrent right breast cancer following a lumpectomy and radiation therapy. Following that she developed a chronic seroma on the right chest wall. She was admitted February 02 -February 06 with the infection of the seroma and chest wall /cellulitis. The patient had a drain which had been placed by radiology and was removed on 8620. The seroma was drained with an open incision and drainage of 2 sites one closed and the second one which is very small and has no further drainage at this time. The drainage was serous in nature. She has mild erythema of her right chest wall. She has no documented fever or chills. At this time she is doing well. Patient developed a reaction to the sulfa drug which she was on in the past and was seen in the emergency room secondary to multiple hives. These have resolved. Incision: Clean and dry mild erythema right chest wall question of a small pustule starting in the midportion of the inferior aspect of the incision has improved since her last visit nothing to drain at this time; there is nothing definitive to drain Lungs: Clear Plan: Continue present care Patient to be on Keflex call if any concerns follow up in one week CC: Dr. Lopez
== END ==
LOC: WWCWWP 14:12
PROVIDERS: ATTEND Surgery
DX: L76.82 Other postprocedural complications of skin and subcutaneous tissue (principal); Z88.1 Allergy status to other antibiotic agents; Z91.040 Latex allergy status; Z91.048 Other nonmedicinal substance allergy status; Z88.8 Allergy status to other drugs, medicaments and biological substances; Z88.2 Allergy status to sulfonamides

== ENCOUNTER → 2021-04-23 | Outpatient (CLI) | payer MEDICARE, OTHER ==
[2021-04-23 13:44] VITALS: PULSE 86; RESP 12; TEMP 98.2
--- NOTE | 2021-04-23 14:13 | P.PN ---
Progress Note - Text Progress Note Date: 04/23/21 Leslye is a 66-year-old white female status post right breast mastectomy 10/28/2020 for a questionable recurrent right breast cancer following a lumpectomy and radiation therapy. Following that she developed a chronic seroma on the right chest wall. She was admitted February 02 -February 06 with the infection of the seroma and chest wall /cellulitis. The patient had a drain which had been placed by radiology and was removed on 8620. The seroma was drained with an open incision and drainage of 2 sites one closed and the second one which is very small and has no further drainage at this time. The drainage was serous in nature. She has mild erythema of her right chest wall last week. She has no documented fever or chills. She was given a week course of antibiotics, we used keflex without resolution of the erythema. The erythema appears to have increased slightly. Patient developed a reaction to the sulfa drug which she was on in the past and was seen in the emergency room secondary to multiple hives. These have resolved. Incision: Clean and dry erythema right chest wall which is increased slightly question of a small pustule starting in the midportion of the inferior aspect of the incision remains present and would recommend I&D of this area Lungs: Clear Plan: Continue present care I&D area of incision Appointment with infectious disease call if any concerns follow up in one week Antibiotic changed to clindamycin 300 mg QID Area of concern in the right chest wall was prepped using Betadine after informed consent and timeout was performed. The area was anesthetized using 1% lidocaine. A small incision was made in the area of fluctuance with minimal serous fluid obtained. Culture was obtained. The area was packed. The patient tolerated procedure in stable condition. CC: Dr. Lopez
== END ==
LOC: WWCWWP 13:26
PROVIDERS: ATTEND Surgery
DX: L76.34 Postprocedural seroma of skin and subcutaneous tissue following other procedure (principal); Z90.11 Acquired absence of right breast and nipple; Z91.048 Other nonmedicinal substance allergy status; Z91.040 Latex allergy status; Z88.1 Allergy status to other antibiotic agents; Z88.2 Allergy status to sulfonamides
CPT/HCPCS: 87070; 87075; 87205

== ENCOUNTER → 2021-05-01 | Outpatient (CLI) | payer MEDICARE, OTHER ==
[2021-05-01 09:40] VITALS: BP 120/90; PULSE 88; RESP 14; TEMP 98.1
--- NOTE | 2021-05-01 09:52 | P.PN ---
Subjective Progress Note Date: 05/01/21 Principal diagnosis: Right breast stage [id number]+Her2-; invasive ductal carcinoma no evidence of recurrence Stage III right breast cancer Leslye is a 64-year-old white female status post right breast partial mastectomy and axillary node dissection on . She is status post neoadjuvant chemotherapy for stage IIIa right breast cancer. She had neoadjuvant dose dense AC and completed 4 cycles on . On she started weekly Taxol and completed 06-26-19 She started anestrazole August 2019. She completed radiation therapy of the right breast November 2019. She underwent a right breast partial mastectomy and 5 axillary nodes removed on . The pathology revealed all margins were uninvolved by invasive cancer. The patient had DCIS also uninvolved by the margins the closest margin for DCIS was 4 mm from the posterior margin. Lymph nodes revealed 5 nodes all negative for metastatic disease. The patient however, preoperatively had a node sampled which was positive and there was concern that this was not identified in the specimen. She therefore was taken back to surgery and and 4 additional lymph nodes were removed with an needle localization of the one of concern. This revealed 1 of 4 nodes with metastatic carcinoma. Her breast size prior to treatment was 44 DDD. After the partial mastectomy of the right breast and radiation therapy she had marked asymmetry of the breasts. She had a symmetry procedure performed on the left breast January 2020. The patient was doing well however and follow-up evaluation there was a question of a lesion recurrent in the right breast. She subsequently underwent a bilateral mastectomy on . Left breast revealed scar, standard closest, histiocytes and foreign body reaction negative for malignancy. Right breast revealed scar, fat necrosis, histiocytes and foreign body reaction no malignancy identified. Following the bilateral mastectomies the patient developed a seroma which was chronic in the right chest wall. She was admitted February 02 through the with the infection of the seroma chest wall cellulitis. She had a drain placed by radiology which was removed and . The seroma was drained with an open incision and drainage of 2 sites 1 closed in the second has minimal drainage at this time. She had persistent erythema of the right chest wall and was seen in consultation by infectious disease. They felt this was related to the surgery and radiation and was not consistent with infection. The patient has had no fever or chills. She is doing well at this time. She is not currently on any antibiotics. The patient does not feel any lumps masses or nodules in either chest wall. She is on anestrazole she is tolerating this without difficulty. She continues to follow with medical and radiation oncology. Family history: 1. paternal grandmother: ? breast cancer 2. paternal aunt: smokers lung cancer 3. maternal aunt: brain cancer 4. brother; skin cancer Hormonal history: Menarche: 10 first at 28, breast fed: no menopasue: 50 BCP: 5 years hormones: none Past surgical history: 1. gallbladder 2. D&C 3. Bilateral mastectomy, axillary node removal right axilla Medical history: HTN depression arthritis Social History: smoke: none Alcohol: Negative Drugs: Negative - Constitutional Constitutional: Reports sweats - EENT Eyes: denies blurred vision, denies pain Ears: deny: decreased hearing, tinnitus Ears, nose, mouth and throat: Denies headache, Denies sore throat - Breasts Breasts: bilateral: as per HPI - Cardiovascular Cardiovascular: Reports high blood pressure - Respiratory Respiratory: Denies cough - Gastrointestinal Gastrointestinal: Denies abdominal pain, Denies diarrhea, Denies nausea, Denies vomiting - Genitourinary (Female) Genitourinary: Denies dysuria, Denies hematuria - Menstruation Menstruation: Reports postmenopausal - Musculoskeletal Comment: Arthritis in knees - Integumentary Comment: Intermittent folliculitis - Neurological Neurological: Denies numbness, Denies weakness - Psychiatric Psychiatric: Reports depression - Endocrine Endocrine: Reports fatigue, Denies weight change - Hematologic/Lymphatic Comment: none - Allergic/Immunologic Allergic/Immunologic: Reports as per HPI Objective - Vital Signs Vital signs: Vital Signs Temp 98.1 F 05/01/21 09:12 Pulse 88 05/01/21 09:12 Resp 14 05/01/21 09:12 BP 120/90 05/01/21 09:12 Pulse Ox 97 05/01/21 09:12 Intake & Output 04/30/21 05/01/21 05/01/21 18:59 06:59 18:59 Weight 78.018 kg - Constitutional General appearance: Present: cooperative - EENT Eyes: Present: EOMI ENT: Present: hearing grossly normal - Neck Neck: Present: normal ROM - Respiratory Respiratory: bilateral: CTA - Cardiovascular Rhythm: regular Heart sounds: normal: S1, S2 - Gastrointestinal General gastrointestinal: Present: soft - Integumentary Integumentary: Present: normal turgor - Musculoskeletal Musculoskeletal: Present: gait normal - Psychiatric Psychiatric: Present: A&O x's 3, appropriate affect, intact judgment & insight - Additional findings Additional findings: Chest wall: Right chest wall post surgical and radiation changes, erythema present does not appear to be infectious in etiology Right axilla: No adenopathy of concern Left chest wall: Incision clean and dry well-healed Left axilla: No adenopathy of concern Assessment and Plan Assessment: Impression: HTN depression arthritis Stage IIb/IIIa invasive breast cancer right, no evidence of recurrence, patient status post bilateral mastectomy, right axillary node removal, right chest wall radiation, chemotherapy, presently on anastrozole Plan: 1. Follow-up examination here in 3 months 2. Medical oncology 3. Follow-up radiation oncology Follow-up care sooner if any questions or concerns Cc: Dr. Lopez
== END ==
LOC: WWCWWP 09:05
PROVIDERS: ATTEND Surgery
DX: C50.911 Malignant neoplasm of unspecified site of right female breast (principal); I10 Essential (primary) hypertension; F32.9 Major depressive disorder, single episode, unspecified; M19.90 Unspecified osteoarthritis, unspecified site; Z90.13 Acquired absence of bilateral breasts and nipples; Z92.21 Personal history of antineoplastic chemotherapy; Z85.3 Personal history of malignant neoplasm of breast; Z17.0 Estrogen receptor positive status [ER+]; Z92.3 Personal history of irradiation; Z79.811 Long term (current) use of aromatase inhibitors

== ENCOUNTER → 2021-07-24 | Outpatient (CLI) | payer MEDICARE, OTHER ==
[2021-07-24 15:25] VITALS: BP 123/86; PULSE 95; RESP 18; TEMP 98
--- NOTE | 2021-07-24 15:51 | P.PN ---
Subjective Progress Note Date: 07/24/21 Principal diagnosis: III A right breast cancer Right breast stage [id number]+Pr+Her2-; invasive ductal carcinoma no evidence of recurrence Stage III right breast cancer Leslye is a 64-year-old white female status post right breast partial mastectomy and axillary node dissection on . She is status post neoadjuvant chemotherapy for stage IIIa right breast cancer. She had neoadjuvant dose dense AC and completed 4 cycles on . On she started weekly Taxol and completed 06-26-19 She started anestrazole August 2019. She completed radiation therapy of the right breast November 2019. She underwent a right breast partial mastectomy and 5 axillary nodes removed on . The pathology revealed all margins were uninvolved by invasive cancer. The patient had DCIS also uninvolved by the margins the closest margin for DCIS was 4 mm from the posterior margin. Lymph nodes revealed 5 nodes all negative for metastatic disease. The patient however, preoperatively had a node sampled which was positive and there was concern that this was not identified in the specimen. She therefore was taken back to surgery and and 4 additional lymph nodes were removed with an needle localization of the one of concern. This revealed 1 of 4 nodes with metastatic carcinoma. Her breast size prior to treatment was 44 DDD. After the partial mastectomy of the right breast and radiation therapy she had marked asymmetry of the breasts. She had a symmetry procedure performed on the left breast January 2020. The patient was doing well however and follow-up evaluation there was a question of a lesion recurrent in the right breast. She subsequently underwent a bilateral mastectomy on . Left breast revealed scar, standard closest, histiocytes and foreign body reaction negative for malignancy. Right breast revealed scar, fat necrosis, histiocytes and foreign body reaction no malignancy identified. Following the bilateral mastectomies the patient developed a seroma which was chronic in the right chest wall. She was admitted February 02 through the 2020 with the infection of the seroma chest wall cellulitis. She had a drain placed by radiology which was removed on 8620. The seroma was drained with an open incision and drainage of 2 sites 1 closed in the second has minimal drainage at this time. She had persistent erythema of the right chest wall and was seen in consultation by infectious disease. They felt this was related to the surgery and radiation and was not consistent with infection. The patient has had no fever or chills. She is doing well at this time. She is not currently on any antibiotics. The patient does not feel any lumps masses or nodules in either chest wall. She is ready for a script for a bilateral breast prosthesis. She is on anestrazole she is tolerating this without difficulty. She continues to follow with medical and radiation oncology. Family history: 1. paternal grandmother: ? breast cancer 2. paternal aunt: smokers lung cancer 3. maternal aunt: brain cancer 4. brother; skin cancer Hormonal history: Menarche: 10 first at 28, breast fed: no menopasue: 50 BCP: 5 years hormones: none Past surgical history: 1. gallbladder 2. D&C 3. Bilateral mastectomy, axillary node removal right axilla Medical history: HTN depression arthritis Social History: smoke: none Alcohol: Negative Drugs: Negative - Constitutional Constitutional: Reports sweats - EENT Eyes: denies blurred vision, denies pain Ears: deny: decreased hearing, tinnitus Ears, nose, mouth and throat: Denies headache, Denies sore throat - Breasts Breasts: bilateral: as per HPI - Cardiovascular Cardiovascular: Reports high blood pressure - Respiratory Respiratory: Denies cough - Gastrointestinal Gastrointestinal: Denies abdominal pain, Denies diarrhea, Denies nausea, Denies vomiting - Genitourinary (Female) Genitourinary: Denies dysuria, Denies hematuria - Menstruation Menstruation: Reports postmenopausal - Musculoskeletal Comment: Arthritis in knees - Integumentary Comment: Intermittent folliculitis - Neurological Neurological: Denies numbness, Denies weakness - Psychiatric Psychiatric: Reports depression - Endocrine Endocrine: Reports fatigue, Denies weight change - Hematologic/Lymphatic Comment: none - Allergic/Immunologic Allergic/Immunologic: Reports as per HPI Objective - Vital Signs Vital signs: Vital Signs Temp 98.0 F 07/24/21 15:21 Pulse 95 07/24/21 15:21 Resp 18 07/24/21 15:21 BP 123/86 07/24/21 15:21 Pulse Ox 97 07/24/21 15:21 Intake & Output 07/23/21 07/24/21 07/24/21 18:59 06:59 18:59 Weight 78.018 kg - Exam BMI 31.5 - Constitutional General appearance: Present: cooperative - EENT ENT: Present: hearing grossly normal - Neck Neck: Present: normal ROM - Respiratory Respiratory: bilateral: CTA - Cardiovascular Heart sounds: normal: S1, S2 - Gastrointestinal General gastrointestinal: Present: soft - Integumentary Integumentary Comment(s): post op scar right chest wall - Musculoskeletal Musculoskeletal: Present: gait normal - Psychiatric Psychiatric: Present: A&O x's 3, appropriate affect, intact judgment & insight - Additional findings Additional findings: Chest wall: Inspection: Right chest wall postoperative and postradiation changes, well- healed scar left chest wall Right chest wall: Incision is clean and dry and well-healed there are post radiation and postsurgical changes Right axilla: No adenopathy of concern Left chest wall: Incision clean and dry no evidence of any cancer Left axilla: No adenopathy of concern Assessment and Plan Assessment: Impression: HTN depression arthritis stage III right breast cancer/ no evidence of recurrence patient on anestrazole Plan: continue anestrazole follow up with medical oncology follow up here in 6 months follow up sooner if any concerns CC: Dr. Lopez
== END ==
LOC: WWCWWP 15:02
PROVIDERS: ATTEND Surgery
DX: Z85.3 Personal history of malignant neoplasm of breast (principal); I10 Essential (primary) hypertension; F32.A Depression, unspecified; M19.90 Unspecified osteoarthritis, unspecified site; Z79.811 Long term (current) use of aromatase inhibitors; Z91.048 Other nonmedicinal substance allergy status; Z88.8 Allergy status to other drugs, medicaments and biological substances; Z88.1 Allergy status to other antibiotic agents; Z91.040 Latex allergy status; Z88.2 Allergy status to sulfonamides; Z79.899 Other long term (current) drug therapy

== ENCOUNTER → 2022-01-29 | Outpatient (CLI) | payer MEDICARE, OTHER ==
[2022-01-29 14:17] VITALS: BP 121/82; PULSE 90; RESP 18; TEMP 98.1
--- NOTE | 2022-01-29 14:21 | P.PN ---
Subjective Progress Note Date: 01/29/22 Principal diagnosis: right breast cancer IIIA invasive ductal cancer III A right breast cancer Right breast stage [id number]+Pr+Her2-; invasive ductal carcinoma no evidence of recurrence Stage III right breast cancer Leslye is a 64-year-old white female status post right breast partial mastectomy and axillary node dissection on . She is status post neoadjuvant chemotherapy for stage IIIa right breast cancer. She had neoadjuvant dose dense AC and completed 4 cycles on . On she started weekly Taxol and completed 06-26-19 She started anestrazole August 2019. She completed radiation therapy of the right breast November 2019. She underwent a right breast partial mastectomy and 5 axillary nodes removed on . The pathology revealed all margins were uninvolved by invasive cancer. The patient had DCIS also uninvolved by the margins the closest margin for DCIS was 4 mm from the posterior margin. Lymph nodes revealed 5 nodes all negative for metastatic disease. The patient however, preoperatively had a node sampled which was posi tive and there was concern that this was not identified in the specimen. She therefore was taken back to surgery and and 4 additional lymph nodes were removed with an needle localization of the one of concern. This revealed 1 of 4 nodes with metastatic carcinoma. Her breast size prior to treatment was 44 DDD. After the partial mastectomy of the right breast and radiation therapy she had marked asymmetry of the breasts. She had a symmetry procedure performed on the left breast January 2020. The patient was doing well however and follow-up evaluation there was a question of a lesion recurrent in the right breast. She subsequently underwent a bilateral mastectomy on . Left breast revealed scar, histiocytes and foreign body reaction negative for malignancy. Right breast revealed scar, fat necrosis, histiocytes and foreign body reaction no malignancy identified. Following the bilateral mastectomies the patient developed a seroma which was chronic in the right chest wall. She was admitted February 02 through the 2020 with the infection of the seroma chest wall cellulitis. She had a drain placed by radiology which was removed on 8620. The seroma was drained with an open incision and drainage of 2 sites 1 closed in the second has minimal drainage at this time. She had persistent erythema of the right chest wall and was seen in consultation by infectious disease. They felt this was related to the surgery and radiation and was not consistent with infection. The patient has had no fever or chills. She is doing well at this time. She is not curr ently on any antibiotics. The patient does not feel any lumps masses or nodules in either chest wall. She is ready for a script for a bilateral breast prosthesis. She is on anestrazole she is tolerating this without difficulty. She continues to follow with medical and radiation oncology. 01-29-22 Leslye has no complaints related to scissors on her chest wall at this time. She is continuing on anestraole without difficulty at this time. She is complaining of a symptomatic left lateral dogear and protuberant right medial incision excess tissue. Family history: 1. paternal grandmother: ? breast cancer 2. paternal aunt: smokers lung cancer 3. maternal aunt: brain cancer 4. brother; skin cancer Hormonal history: Menarche: 10 first at 28, breast fed: no menopasue: 50 BCP: 5 years hormones: none Past surgical history: 1. gallbladder 2. D&C 3. Bilateral mastectomy, axillary node removal right axilla Medical history: HTN depression arthritis Social History: smoke: none Alcohol: Negative Drugs: Negative - Constitutional Constitutional: Reports sweats - EENT Eyes: denies blurred vision, denies pain Ears: deny: decreased hearing, tinnitus Ears, nose, mouth and throat: Denies headache, Denies sore throat - Breasts Breasts: bilateral: as per HPI - Cardiovascular Cardiovascular: Reports high blood pressure - Respiratory Respiratory: Denies cough - Gastrointestinal Gastrointestinal: Denies abdominal pain, Denies diarrhea, Denies nausea, Denies vomiting - Genitourinary (Female) Genitourinary: Denies dysuria, Denies hematuria - Menstruation Menstruation: Reports postmenopausal - Musculoskeletal Comment: Arthritis in knees - Integumentary Comment: Intermittent folliculitis - Neurological Neurological: Denies numbness, Denies weakness - Psychiatric Psychiatric: Reports depression - Endocrine Endocrine: Reports fatigue, Denies weight change - Hematologic/Lymphatic Comment: none - Allergic/Immunologic Allergic/Immunologic: Reports as per HPI Objective - Constitutional General appearance: Present: cooperative - EENT Eyes: Present: EOMI - Neck Neck: Present: normal ROM - Respiratory Respiratory: bilateral: CTA - Cardiovascular Rhythm: regular Heart sounds: normal: S1, S2 - Integumentary Integumentary Comment(s): incisions chest wall clean and dry well-healed Right incision with some protuberance at the medial aspect of the incision, bilateral dogears laterally greater on the left than the right asymptomatic for the patient but no evidence of any recurrent disease Right axilla: No adenopathy of concern Left axilla: No adenopathy of concern Assessment and Plan Assessment: Impression: HTN depression arthritis Stage III a right breast invasive ductal carcinoma no evidence of recurrent disease T3 N1 M0 G3 ER positive. Positive HER-2 negative Plan: Continue anastrozole Revision of chest wall in the medial aspect of right breast incision, revision of lateral aspect left chest wall incisions/dogear Follow up here in 6 months Continue following with medical and radiation oncology CC: Dr. Lopze
== END ==
LOC: WWCWWP 13:17
PROVIDERS: ATTEND Surgery
DX: Z08 Encounter for follow-up examination after completed treatment for malignant neoplasm (principal); Z85.3 Personal history of malignant neoplasm of breast; I10 Essential (primary) hypertension; F32.A Depression, unspecified; M19.90 Unspecified osteoarthritis, unspecified site; Z90.13 Acquired absence of bilateral breasts and nipples; Z91.048 Other nonmedicinal substance allergy status; Z88.1 Allergy status to other antibiotic agents; Z88.8 Allergy status to other drugs, medicaments and biological substances; Z88.5 Allergy status to narcotic agent; Z91.040 Latex allergy status

== ENCOUNTER → 2022-01-29 | Outpatient (CLI) | payer MEDICARE, OTHER ==
--- NOTE | 2022-01-29 15:03 | BD ---
EXAMINATION TYPE: Axial Bone Density DATE OF EXAM: 01/29/2022 COMPARISON: DEXA bone scan January 30, 2020 CLINICAL HISTORY: 66 year old Female. ICD-10 CODE: M85.9 DISORDER OF BONE DENSITY AND STRUCTURE Height: 62 Weight: 174.9 FRAX RISK QUESTIONS: Alcohol (3 or more units per day): no Family History (Parent hip fracture): no Glucocorticoids (More than 3mos): no (Ex: prednisone, prednisolone, methylprednisolone, dexamethasone, and hydrocortisone). History of Fracture in Adulthood: no Secondary Osteoporosis: 1. Type 1 Diabetes: no 2. Hyperthyroidism: no 3. Menopause before 45: no 4. Malnutrition: no 5. Chronic liver disease: no Rheumatoid Arthritis: no Current Tobacco Use: no RISK FACTORS HISTORY OF: Surgery to Spine/Hip(right/left)/Wrist (right/left): no Family History of Osteoporosis: no Active: yes Diet low in dairy products/other sources of calcium: yes Postmenopausal woman: yes Lost more than 2 inches in height since high school: yes MEDICATIONS: Additional History: EXAM MEASUREMENTS: Bone mineral densitometry was performed using the [employer] System. Bone mineral density as measured about the Lumbar spine is: ----- L1-L4(G/cm2): 1.232 T Score Values are as follows: ----- L1: 0.0 ----- L2: 0.0 ----- L3: 0.5 ----- L4: 1.1 ----- L1-L40.4 Bone mineral density : unavailable Bone mineral density about the R hip (g/cm2): 0.794 Bone mineral density about the L hip (g/cm2): 0.809 T Score values are as follows: -----R Neck: -1.6 -----L Neck: -1.9 -----R Total: -1.2 -----L Total: -1.2 Bone mineral density : unavailable FRAX%s: The graph provided illustrates a 10.3% chance for a major osteoporotic fx and a 1.5% estrella nce for the hips probability for fx in 10 years time. IMPRESSION: Osteopenia (T Score between -2.5 and -1) is redemonstrated. There is slightly increased risk of fracture and the patient may be considered for treatment. Re-Screen 2-5 years. NOTE: T-SCORE=SD OF THE YOUNG ADULT MEAN.
== END | disposition home or self-care (01) ==
LOC: RADBDWWP 13:18
PROVIDERS: ATTEND Internal Medicine Hematology & Oncology
DX: M85.89 Other specified disorders of bone density and structure, multiple sites (principal)
CPT/HCPCS: 77080

== ENCOUNTER → 2022-11-26 | Outpatient (CLI) | payer MEDICARE, OTHER ==
--- NOTE | 2022-11-26 10:01 | US ---
EXAMINATION TYPE: US abdomen complete DATE OF EXAM: 11/26/2022 COMPARISON: US 2020 CLINICAL INDICATION: Female, 67 years old with history of R10.9 ABD PAIN; TECHNIQUE: Multiple sonographic images of the abdomen are obtained. FINDINGS: EXAM MEASUREMENTS: Liver Length: 15.6 cm CBD: 0.5 cm Spleen: 10.3 cm Right Kidney: 9.3 x 5.4 x 4.8 cm Left Kidney: 9.2 x 4.4 x 4.8 cm Pancreas: visualized portions wnl, limited by overlying midline bowel gas Liver: limited visualization, scanned intercostally, attenuating, increased echogenicity Gallbladder: surgically absent CBD: visualized portions wnl, limited by overlying bowel gas Spleen: visualized portions wnl, limited by overlying bowel gas Right Kidney: wnl Left Kidney: wnl Upper IVC: wnl Abd Aorta: proximal portion obscured by overlying midline bowel gas, mid and distal portions wnl The liver is diffusely hyperechoic without focal lesion within the limited visualization. The intrah epatic portion of the IVC and visualized portions of the abdominal aorta are within normal limits. Th e gallbladder is surgically absent.. Common bile duct is unremarkable. The pancreas is poorly visua lized due to overlying bowel gas. The spleen is unremarkable. Kidneys are symmetric and free of hydr onephrosis. No renal lesions are seen. Corticomedullary differentiation is maintained bilaterally. IMPRESSION: Limited examination due to overlying bowel gas. 1. No acute process. 2. Hepatic steatosis. 3. Postcholecystectomy changes.
== END | disposition home or self-care (01) ==
LOC: RADUSWWP 08:05
PROVIDERS: ATTEND Internal Medicine Hematology & Oncology
DX: C50.811 Malignant neoplasm of overlapping sites of right female breast (principal); K76.0 Fatty (change of) liver, not elsewhere classified; M85.9 Disorder of bone density and structure, unspecified; I10 Essential (primary) hypertension; Z71.3 Dietary counseling and surveillance; Z90.49 Acquired absence of other specified parts of digestive tract
CPT/HCPCS: 76700

== ENCOUNTER → 2023-02-25 | Outpatient (CLI) | payer MEDICARE, OTHER ==
[2023-02-25 10:55] VITALS: BP 136/80; PULSE 74; RESP 16; TEMP 98.3
--- NOTE | 2023-02-25 10:58 | P.PN ---
Subjective Progress Note Date: 02/25/23 III A right breast cancer Right breast stage [id number]+Pr+Her2-; invasive ductal carcinoma no evidence o f recurrence dx. 2019 Leslye is a 64-year-old white female status post right breast partial mastectomy and axillary node dissection on . She is status post neoadjuvant chemotherapy for stage IIIa right breast cancer. She had neoadjuvant dose dense AC and completed 4 cycles on . On she started weekly Taxol and completed 06-26-19 She started anestrazole August 2019. She completed radiation therapy of the right breast November 2019. She underwent a right breast partial mastectomy and 5 axillary nodes removed on . The pathology revealed all margins were uninvolved by invasive cancer. The patient had DCIS also uninvolved by the margins the closest margin for DCIS was 4 mm from the posterior margin. Lymph nodes revealed 5 nodes all negative for metastatic disease. The patient however, preoperatively had a node sampled which was positive and there was concern that this was not identified in the specimen. She therefore was taken back to surgery on and 4 additional lymph nodes were removed with an needle localization of the one of concern. This revealed 1 of 4 nodes with metastatic carcinoma. Her breast size prior to treatment was 44 DDD. After the partial mastectomy of the right breast and radiation therapy she had marked asymmetry of the breasts. She had a symmetry procedure performed on the left breast January 2020. The patient was doing well however and follow-up evaluation there was a question of a lesion recurrent in the right breast. She subsequently underwent a bilateral mastectomy on . Left breast rev ealed scar, histiocytes and foreign body reaction negative for malignancy. Right breast revealed scar, fat necrosis, histiocytes and foreign body reaction no malignancy identified. Following the bilateral mastectomies the patient developed a seroma which was chronic in the right chest wall. She was admitted February 02 through the 2020 with the infection of the seroma chest wall cellulitis. She had a drain placed by radiology which was removed on 8620. The seroma was drained with an open incision and drainage of 2 sites She had persistent erythema of the right chest wall and was seen in consultation by infectious disease. They felt this was related to the surgery and radiation and was not consistent with infection. The patient has had no fever or chills. She is doing well at this time. The patient does not feel any lumps masses or nodules in either chest wall. She is ready for a script for a bilateral breast prosthesis. She was on arimidex and fosamax; she was changed in October to exemestane and fosamx; she states that the change was secondary to joint pain but she has gained weight on the new medication She continues to follow with medical and radiation oncology. Note Dr. Frederick reviewed 05-17-22 the patient is not complaining of any new lumps masses or nodules of concern in her chest wall. She does have intermittent drainage from the lateral aspect of the right breast incision where she had a seroma in the past. Brother recently diagnosed with clear cell kidney cancer. Continues to take anestrazole she states her joints aren't as flexible but she is doing well. Family history: 1. paternal grandmother: ? breast cancer 2. paternal aunt: smokers lung cancer 3. maternal aunt: brain cancer 4. brother; skin cancer Hormonal history: Menarche: 10 first at 28, breast fed: no menopasue: 50 BCP: 5 years hormones: none Past surgical history: 1. gallbladder 2. D&C 3. Bilateral mastectomy, axillary node removal right axilla Medical history: HTN depression arthritis Social History: smoke: none Alcohol: Negative Drugs: Negative - Constitutional Constitutional: Reports sweats - EENT Eyes: denies blurred vision, denies pain Ears: deny: decreased hearing, tinnitus Ears, nose, mouth and throat: Denies headache, Denies sore throat - Breasts Breasts: bilateral: as per HPI - Cardiovascular Cardiovascular: Reports high blood pressure - Respiratory Respiratory: Denies cough - Gastrointestinal Gastrointestinal: Denies abdominal pain, Denies diarrhea, Denies nausea, Denies vomiting - Genitourinary (Female) Genitourinary: Denies dysuria, Denies hematuria - Menstruation Menstruation: Reports postmenopausal - Musculoskeletal Comment: Arthritis in knees - Integumentary Comment: Intermittent folliculitis - Neurological Neurological: Denies numbness, Denies weakness - Psychiatric Psychiatric: Reports depression - Endocrine Endocrine: Reports fatigue, Denies weight change - Hematologic/Lymphatic Comment: none - Allergic/Immunologic Allergic/Immunologic: Reports as per HPI Objective - Constitutional General appearance: Present: cooperative - EENT ENT: Present: hearing grossly normal - Neck Neck: Present: normal ROM - Respiratory Respiratory: bilateral: CTA - Cardiovascular Rhythm: regular Heart sounds: normal: S1, S2 - Integumentary Integumentary: Present: normal turgor - Musculoskeletal Musculoskeletal: Present: gait normal - Psychiatric Psychiatric: Present: A&O x's 3, appropriate affect, intact judgment & insight - Additional findings Additional findings: incisions chest wall clean and dry well-healed Bilateral axillary dogears right chest wall: no evidence of recurrence; postradiation changes small area of drainage healed near prior seroma drainage site left chest wall: no evidence of thrombus masses or nodules of concern Right axilla: No adenopathy of concern Left axilla: No adenopathy of concern Assessment and Plan Assessment: Impression: HTN depression arthritis Stage IIIA right breast invasive ductal carcinoma no evidence of recurrent disease T3 N1 M0 G3 ER + [place]+ HER-2 negative Plan: Aromatose inhibitor as per medical oncology Follow up here in 6 months Continue following with medical and radiation oncology CC: Dr. Lopez
== END ==
LOC: WWCWWP 10:35
PROVIDERS: ATTEND Surgery
DX: D05.11 Intraductal carcinoma in situ of right breast (principal); I10 Essential (primary) hypertension; F32.A Depression, unspecified; M19.90 Unspecified osteoarthritis, unspecified site; N64.89 Other specified disorders of breast; Z17.0 Estrogen receptor positive status [ER+]; Z85.3 Personal history of malignant neoplasm of breast; Z80.3 Family history of malignant neoplasm of breast; Z90.13 Acquired absence of bilateral breasts and nipples; Z92.3 Personal history of irradiation; Z91.048 Other nonmedicinal substance allergy status; Z88.8 Allergy status to other drugs, medicaments and biological substances; Z88.2 Allergy status to sulfonamides; Z88.5 Allergy status to narcotic agent; Z79.899 Other long term (current) drug therapy

== ENCOUNTER → 2023-10-21 | Outpatient (CLI) | payer MEDICARE, OTHER ==
[2023-10-21 11:32] VITALS: BP 143/85; PULSE 83; RESP 15; TEMP 98.3
--- NOTE | 2023-10-21 11:42 | P.PN ---
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 2019 Leslye is a 68-year-old white female status post right breast partial mastectomy and axillary node dissection on . She was status post neoadjuvant chemotherapy for stage IIIa right breast cancer. She had neoadjuvant dose dense AC and completed 4 cycles on . On she started weekly Taxol and completed 06-26-19 She started anestrazole August 2019. She completed radiation therapy of the right breast November 2019. She underwent a right breast partial mastectomy and 5 axillary nodes removed on . The pathology revealed all margins were uninvolved by invasive cancer. The patient had DCIS also uninvolved by the margins the closest margin for DCIS was 4 mm from the posterior margin. Lymph nodes revealed 5 nodes all negative for metastatic disease. The patient however, preoperatively had a node sampled which was positive and there was concern that this was not identified in the specimen. She therefore was taken back to surgery on and 4 additional lymph nodes were removed with an needle localization of the one of concern. This revealed 1 of 4 nodes with metastatic carcinoma. Her breast size prior to treatment was 44 DDD. After the partial mastectomy of the right breast and radiation therapy she had marked asymmetry of the breasts. She had a symmetry procedure performed on the left breast January 2020. The patient was doing well however and follow-up evaluation there was a question of a lesion recurrent in the right breast. She subsequently underwent a bilateral mastectomy on . Left breast revealed scar, histiocytes and foreign body reaction negative for malignancy. Right breast revealed scar, fat necrosis, histiocytes and foreign body reaction no malignancy identified. Following the bilateral mastectomies the patient developed a seroma which was chronic in the right chest wall. She was admitted February 02 through the 2020 with the infection of the seroma chest wall cellulitis. She had a drain placed by radiology which was removed on 8620. The seroma was drained with an open incision and drainage of 2 sites She had persistent erythema of the right chest wall and was seen in consultation by infectious disease. They felt this was related to the surgery and radiation and was not consistent with infection. The patient had no fever or chills. The patient does not feel any lumps masses or nodules in either chest wall. She is ready for a script for a bilateral breast prosthesis. She was on arimidex and fosamax; she was changed in October to exemestane and fosamx; she states that the change was secondary to joint pain but she has gained weight on the new medication She continues to follow with medical and radiation oncology. Note Dr. Frederick reviewed 05-17-22 the patient is not complaining of any new lumps masses or nodules of concern in her chest wall. She does have intermittent drainage from the lateral aspect of the right breast incision where she had a seroma in the past. Brother recently diagnosed with clear cell kidney cancer. Continues to take anestrazole she states her joints aren't as flexible but she is doing well. note Dr Frederick 05-09-23 reviewed She is concerned about pain on her chest wall on the right side near the chest wall when she moved to the right. She also complains of pain on the side of her neck on the right side which is worse with movement. She does not note any lumps masses or nodules of concern on either chest wall. She states she may have an enlarged lymph node in the left submandibular area. Family history: 1. paternal grandmother: ? breast cancer 2. paternal aunt: smokers lung cancer 3. maternal aunt: brain cancer 4. brother; skin cancer Hormonal history: Menarche: 10 first at 28, breast fed: no menopasue: 50 BCP: 5 years hormones: none Past surgical history: 1. gallbladder 2. D&C 3. Bilateral mastectomy, axillary node removal right axilla Medical history: HTN depression arthritis Social History: smoke: none Alcohol: Negative Drugs: Negative - Constitutional Constitutional: Reports sweats - EENT Eyes: denies blurred vision, denies pain Ears: deny: decreased hearing, tinnitus Ears, nose, mouth and throat: Denies headache, Denies sore throat - Breasts Breasts: bilateral: as per HPI - Cardiovascular Cardiovascular: Reports high blood pressure - Respiratory Respiratory: Denies cough - Gastrointestinal Gastrointestinal: Denies abdominal pain, Denies diarrhea, Denies nausea, Denies vomiting - Genitourinary (Female) Genitourinary: Denies dysuria, Denies hematuria - Menstruation Menstruation: Reports postmenopausal - Musculoskeletal Comment: Arthritis in knees - Integumentary Comment: Intermittent folliculitis - Neurological Neurological: Denies numbness, Denies weakness - Psychiatric Psychiatric: Reports depression - Endocrine Endocrine: Reports fatigue, Denies weight change - Hematologic/Lymphatic Comment: none - Allergic/Immunologic Allergic/Immunologic: Reports as per HPI Objective - Vital Signs Vital signs: Vital Signs Temp 98.3 F 10/21/23 11:23 Pulse 83 10/21/23 11:23 Resp 15 10/21/23 11:23 BP 143/85 10/21/23 11:23 Pulse Ox 96 10/21/23 11:23 FiO2 Intake & Output 10/20/23 10/21/23 10/21/23 18:59 06:59 18:59 Weight 84.368 kg - Constitutional General appearance: Present: cooperative - EENT Eyes: Present: EOMI ENT: Present: hearing grossly normal - Neck Details: Firmness on the right lateral neck muscles to palpation which are also tender Small shotty lymph node in the left submandibular area No other nodes of concern Neck: Present: normal ROM - Respiratory Respiratory: bilateral: CTA - Cardiovascular Rhythm: regular Heart sounds: normal: S1, S2 - Gastrointestinal General gastrointestinal: Present: soft - Integumentary Integumentary: Present: normal turgor - Musculoskeletal Musculoskeletal: Present: gait normal - Psychiatric Psychiatric: Present: A&O x's 3, appropriate affect, intact judgment & insight - Additional findings Additional findings: incisions chest wall clean and dry well-healed Bilateral axillary dogears right chest wall: no evidence of recurrence; postradiation changes small area of drainage healed near prior seroma drainage site left chest wall: no evidence of masses or nodules of concern Right axilla: No adenopathy of concern Left axilla: No adenopathy of concern Assessment and Plan Assessment: Impression: HTN depression arthritis Stage IIIA right breast invasive ductal carcinoma no evidence of recurrent disease T3 N1 M0 G3 ER + [place]+ HER-2 negative Plan: Aromatose inhibitor as per medical oncology PET CT rule out metatatic disease, follow up after PET CT consider physical therapy Continue following with medical and radiation oncology CC: Dr. Lopez
== END ==
LOC: WWCWWP 11:16
PROVIDERS: ATTEND Surgery
DX: C50.911 Malignant neoplasm of unspecified site of right female breast (principal); I10 Essential (primary) hypertension; F32.A Depression, unspecified; M19.90 Unspecified osteoarthritis, unspecified site; N64.89 Other specified disorders of breast; Z17.0 Estrogen receptor positive status [ER+]; Z80.3 Family history of malignant neoplasm of breast; Z90.13 Acquired absence of bilateral breasts and nipples; Z92.3 Personal history of irradiation; Z91.048 Other nonmedicinal substance allergy status; Z88.8 Allergy status to other drugs, medicaments and biological substances; Z88.5 Allergy status to narcotic agent; Z88.2 Allergy status to sulfonamides; Z88.1 Allergy status to other antibiotic agents; Z91.040 Latex allergy status; Z79.899 Other long term (current) drug therapy

== ENCOUNTER → 2023-11-11 | Outpatient (CLI) | payer MEDICARE, OTHER ==
--- NOTE | 2023-11-12 08:45 | PE ---
EXAMINATION TYPE: PET CT fusion skull to thigh DATE OF EXAM: 11/11/2023 CLINICAL INDICATION:Female, 68 years old with history of Z85.3 HISTORY OF BREAST CANCER; TECHNIQUE: Following the intravenous administration of 9.75 mCi of F-18 FDG, whole body images are performed from the skull base to the midthigh. Images are reviewed on the computer in the coronal, a xial, and sagittal planes. Reconstructed rotating images are created on independent workstation and reviewed on the computer. A non-contrast CT is performed in conjunction with the PET scan. Glucose level 91 mg/dL CT DLP: 763 mGycm, Automated exposure control for dose reduction was used. COMPARISON: CT 09/12/2020., PET/CT None, 09/12/2020 FINDINGS: Mediastinal SUV mean is 2.3. Hepatic parenchyma SUV mean is 3.1. SKULL BASE AND NECK: No suspicious radiotracer activity. CHEST, MEDIASTINUM, AND HILAR REGION: No suspicious radiotracer activity. Posttreatment changes to th e chest wall without evidence for abnormal FDG activity or lymphadenopathy. ABDOMEN AND PELVIS: No suspicious radiotracer activity. MUSCULOSKELETAL STRUCTURES: No suspicious radiotracer activity. Degeneration uptake within the transv erse processes of the cervical spine on the left. Max SUV 4.9. OTHER CT: Bilateral mastectomy changes. Few scattered colonic diverticula. The appendix is normal. No nobstructing right 4 mm renal calculus. Small hiatal hernia. Posttreatment changes to the right upper lung lung parenchyma. IMPRESSION: No suspicious radiotracer activity to suggest recurrence or metastatic disease.
== END | disposition home or self-care (01) ==
LOC: RADPETMAIN 12:07
PROVIDERS: ATTEND Surgery
DX: Z85.3 Personal history of malignant neoplasm of breast (principal)
CPT/HCPCS: 78815; A9552

== ENCOUNTER → 2024-01-31 | Outpatient (CLI) | payer MEDICARE, OTHER ==
--- NOTE | 2024-01-31 16:03 | BD ---
EXAMINATION TYPE: Axial Bone Density DATE OF EXAM: 01/31/2024 CLINICAL HISTORY: 68 years old Female. ICD-10 CODE: M85.9 OSTEOPENIA Height: 62 Weight: 184 FRAX RISK QUESTIONS: Family History (Parent hip fracture): no History of Fracture in Adulthood: no Secondary Osteoporosis: no RISK FACTORS HISTORY OF: Surgery to Spine/Hip(right/left)/Wrist (right/left): no MEDICATIONS: Thyroid Medications: no Osteoporosis Medications: no EXAM MEASUREMENTS: Bone mineral densitometry was performed using the [employer] System. Bone mineral density as measured about the Lumbar spine is: ----- L1-L4(G/cm2): 1.218 T Score Values are as follows: ----- L1: -0.3 ----- L2: 0.2 ----- L3: 0.2 ----- L4: 1.0 ----- L1-L4: 0.3 Z Score Values are as follows: ----- L1: 0.7 ----- L2: 1.3 ----- L3: 1.2 ----- L4: 2.0 ----- L1-L4: 1.4 Bone mineral density has: Decreased -1.1% since study of: 01/29/2022 Bone mineral density about the R hip (g/cm2): 0.894 Bone mineral density about the L hip (g/cm2): 0.894 T Score values are as follows: -----R Neck: -2.2 -----L Neck: -2.2 -----R Total: -0.9 -----L Total: -1.0 Z Score values are as follows: -----R Neck: -0.9 -----L Neck: -1.0 -----R Total: 0.1 -----L Total: 0.0 Bone mineral density has: Increased 3.7% since study of: 01/29/2022 FRAX%s: The graph provided illustrates a 12.0% chance for a major osteoporotic fx and a 2.4% chance f or the hips probability for fx in 10 years time. IMPRESSION: Osteopenia (T Score between -2.5 and -1). There is slightly increased risk of fracture and the patient may be considered for treatment. Re-Screen 2-5 years. NOTE: T-SCORE=SD OF THE YOUNG ADULT MEAN.
== END | disposition home or self-care (01) ==
LOC: RADBDWWP 11:19
PROVIDERS: ATTEND Internal Medicine Hematology & Oncology
DX: M85.88 Other specified disorders of bone density and structure, other site (principal); C50.811 Malignant neoplasm of overlapping sites of right female breast; I10 Essential (primary) hypertension; Z71.3 Dietary counseling and surveillance
CPT/HCPCS: 77080